=== PATIENT | male | born 1955 | race Caucasian/White ===

== ENCOUNTER → 2016-07-01 | Outpatient (CLI) | payer BC ==
--- NOTE | 2016-07-01 10:00 | XR ---
EXAMINATION TYPE: XR chest 2V DATE OF EXAM: 07/01/2016 9:55 AM COMPARISON: 06/08/2016 HISTORY: Follow-up pneumothorax TECHNIQUE: Frontal and lateral views of the chest are obtained. FINDINGS: Left-sided hydropneumothorax persists although slightly smaller in size. Scattered senescent parenchymal changes noted. Hyperinflation compatible with COPD. No evidence for infiltrate. No evidence for atelectasis. Heart size is stable. Mediastinal structures are stable and grossly unremarkable. No evidence for hilar prominence. Degenerative changes dorsal spine. IMPRESSION: 1. Left-sided hydropneumothorax persists although slightly smaller in size.
--- NOTE | 2016-07-01 12:34 | PN ---
OFFICE NOTE I had the pleasure of seeing in the outpatient office today Mr. Alec Jefferson for followup. As you may recall, he is status post talc pleurocentesis for recurrent left-sided pneumothorax with persistent basal left hydropneumothorax upon discharge. Patient clinically is stable. Denying any fever or excessive chest pain. On physical examination, there is decreased breath sounds in the left lower field. His chest x-ray today shows slightly improved left hydropneumothorax. The upper lung field seems to be adherent at least posterolaterally to the chest wall. As previously discussed, I certainly would accept the current status of things as there is not much to offer surgically for Mr. Jefferson. I sure hope that this space does not get infected, which does not seem to be the case at this point. Further potential referral for evaluation for lung transplantation might be considered. Should you have any questions or concerns, please do not hesitate to call me. It has been a pleasure to participate in the care of this nice gentleman.
== END | disposition home or self-care (01) ==
LOC: RADXRMAIN 09:42
PROVIDERS: ATTEND Surgery
DX: J94.2 Hemothorax (principal)
CPT/HCPCS: 71020

== ENCOUNTER → 2016-09-16 | Outpatient (CLI) | payer BC ==
--- NOTE | 2016-09-16 10:44 | XR ---
EXAMINATION TYPE: XR chest 2V DATE OF EXAM: 09/16/2016 10:37 AM COMPARISON: 07/01/2016 TECHNIQUE: PA and lateral views submitted. HISTORY: Cough FINDINGS: Large bulla involving the right lung apex and left apex are stable. Linear density left suprahilar re gion appears stable likely related to scar. Pleural-based thickening and tiny effusion are noted on the left. Underlying chronic obstructive pulm onary disease seen. The heart size is stable. Mild hypertrophic and degenerative change spine. IMPRESSION: 1. COPD with left lower lobe consolidation and small effusion.
== END | disposition home or self-care (01) ==
LOC: RADXRMAIN 10:19
PROVIDERS: ATTEND Internal Medicine
DX: J44.9 Chronic obstructive pulmonary disease, unspecified (principal); J90 Pleural effusion, not elsewhere classified
CPT/HCPCS: 71020

== ENCOUNTER 2016-11-01 00:14 | Inpatient (IN) | payer BC ==
[2016-11-01 00:31] LABS: ABG HCO3 27 mmol/L (21-25); ABG PCO2 88 mmHg (35-45); ABG PH 7.11 (7.35-7.45); ABG PO2 194 mmHg (83-108); ABG TCO2 30 mmol/L (19-24)
[2016-11-01 00:40] LABS: ABG Base Excess -1.5 mmol/L
[2016-11-01] MEDS ORDERED: PROPOFOL 500 MG in EMPTY BAG 1 BAG IV ONE (00:40)
[2016-11-01] MEDS ORDERED: MIDAZOLAM (PF) 1 MG/ML 5 ML VIAL IV STA (00:41)
[2016-11-01] MEDS ORDERED: SUCCINYLCHOLINE CHLORIDE VIAL 200 MG/10 ML VIAL IV STA (00:41)
[2016-11-01] MEDS ORDERED: IPRATROPIUM-ALBUTEROL 3 ML NEB INHALATION STA (00:47)
[2016-11-01] MEDS: fentaNYL (PF) 50 MCG/ML 2 ML AMP IV PRN ×4 (00:54→02:56)
[2016-11-01] MEDS ORDERED: MIDAZOLAM HCL 100 MG in SODIUM CHLORIDE 0.9% 80 ML IV ONE (00:59)
[2016-11-01] MEDS ORDERED: ROCURONIUM BROMIDE 10 MG/ML 10 ML VIAL IV STA (00:59)
[2016-11-01] MEDS ORDERED: fentaNYL (PF) 2,500 MCG in SODIUM CHLORIDE 0.9% 200 ML IV SCH ×2 (01:00→05:25)
--- NOTE | 2016-11-01 01:05 | XR ---
EXAM: XR Chest, 2 Views CLINICAL HISTORY: Reason: Pain TECHNIQUE: Frontal views of the chest. COMPARISON: CXR 10/31/16 FINDINGS: Lungs: Bilateral emphysematous changes and lung scarring. No consolidation. Pleural space: 40% pneumothorax on the right, slightly increased compared to the prior study. Small left pleural effusion/pleural thickening Heart: Unremarkable. No cardiomegaly. Mediastinum: Unremarkable. Bones/joints: Unremarkable. IMPRESSION: 40% pneumothorax on the right, slightly increased compared to the prior study. [employer] 11/01/16 01:08 Call Doctor Regarding Pneumothorax, called Dr. Galaviz on 11/01 01:07 (-04:00)
--- NOTE | 2016-11-01 01:36 | CT ---
EXAM: CT Chest Without Intravenous Contrast CLINICAL HISTORY: Reason: pneumothorax TECHNIQUE: Axial computed tomography images of the chest without intravenous contrast. CTDI is 14.9 mGy and DLP is 746.1 mGy-cm. This CT exam was performed using one or more of the following dose reduction techniques: automated exposure control, adjustment of the mA and/or kV according to patient size, and/or use of iterative reconstruction technique. Coronal and sagittal reformatted images were created and reviewed. COMPARISON: CXR performed 1 hour prior and CXR 10/31/16 FINDINGS: Lungs: Extensive bilateral centrilobular and paraseptal emphysematous changes. Peripheral scarring is seen. Pleural space: Right-sided pneumothorax approximally 50% in volume, difficult to compare to the prior study however appears slightly increased in size. Small left pleural effusion and pleural calcification. Heart: Unremarkable. No cardiomegaly. No significant pericardial effusion. Bones/joints: Multiple degenerative changes of the spine. No acute fracture. No dislocation. Soft tissues: Unremarkable. Vasculature: Unremarkable. No thoracic aortic aneurysm. Lymph nodes: Unremarkable. No enlarged lymph nodes. Kidneys and ureters: Left renal 7.8 mm cyst. Stomach and bowel: Diverticulosis. Tubes, lines and devices: ET tube 10-cm above the familia. NG tube tip within the distal esophagus. IMPRESSION: 1. ET tube 10-cm above the familia. NG tube tip within the distal esophagus. 2. Right-sided pneumothorax approximally 50% in volume, difficult to compare to the prior study however appears slightly increased in size. 3. Extensive bilateral centrilobular and paraseptal emphysematous changes. Peripheral scarring is seen. Small left pleural effusion and pleural calcification. [employer] 11/01/16 01:38 Call Doctor Regarding Above results, called Dr. Galaviz on 11/01 01:38 (-04:00)
[2016-11-01 02:22] LABS: ABG Base Excess -1.2 mmol/L; ABG HCO3 27 mmol/L (21-25); ABG PCO2 82 mmHg (35-45); ABG PH 7.14 (7.35-7.45); ABG PO2 >400 mmHg (83-108); ABG TCO2 29 mmol/L (19-24)
[2016-11-01] MEDS ORDERED: IPRATROPIUM-ALBUTEROL 3 ML NEB INHALATION PRN (02:30)
[2016-11-01] MEDS ORDERED: NALOXONE 0.4 MG/ML 1 ML VIAL IV PRN (02:30)
--- NOTE | 2016-11-01 02:40 | ED ---
SOB HPI - General Chief Complaint: Shortness of Breath Stated Complaint: SHE Time Seen by Provider: 11/01/16 00:16 Source: EMS Mode of arrival: EMS Limitations: altered mental status - History of Present Illness Initial Comments: This is a 61-year-old male with a history of severe COPD with bullous emphysema and pneumothorax. The patient was transferred from [facility] for respiratory distress and right-sided new pneumothorax. Dr. Mejia has seen the patient the past so he was sent here for continuation of care. Upon arrival the patient is unable to answer any questions and he was in severe respiratory distress. He required my immediate attention and was intubated almost immediately upon arrival. Per the family he was having worsening shortness of breath today and EMS arrived and his oxygen saturations were in the 40s. - Related Data Home Medications Medication Instructions Recorded Confirmed Albuterol Nebulized [Ventolin 2.5 mg INHALATION RT-QID 04/27/16 05/19/16 Nebulized] Budesonide/Formoterol Fumarate 2 puff INHALATION RT-BID 04/27/16 05/19/16 [Symbicort 160-4.5 Mcg Inhaler] Multivitamins, Thera [Multivitamin 1 tab PO DAILY 05/04/16 05/19/16 (formulary)] Tiotropium [place] [Spiriva 1 puff INHALATION RT-DAILY@1200 05/04/16 05/19/16 Respimat] Previous Rx's Medication Instructions Recorded Acetaminophen Tab [Tylenol] 650 mg PO Q4HR PRN #0 tab 05/01/16 Thiamine [Vitamin B-1] 100 mg PO BID@1200,1700 tab 05/01/16 ALPRAZolam [Xanax] 0.25 mg PO BID PRN #60 tab 06/08/16 Ipratropium Nebulized [Atrovent 0.5 mg INHALATION Q6HR #120 neb 06/08/16 Nebulized] Nicotine 7Mg/24Hr Patch [Habitrol] 1 patch TRANSDERM DAILY #28 patch 06/08/16 Pantoprazole [Protonix] 40 mg PO AC-BRKFST #30 tablet. 06/08/16 Sennosides-Docusate Sodium 1 each PO BID tab 06/08/16 [Senokot-S] Allergies Allergy/AdvReac Type Severity Reaction Status Date / Time No Known Allergies Allergy Verified 05/19/16 10:01 Review of Systems ROS Statement: Those systems with pertinent positive or pertinent negative responses have been documented in the HPI. ROS Other: All systems not noted in ROS Statement are negative. Past Medical History Past Medical History: COPD, Hyperlipidemia, Hypertension, Prostate Disorder, Respiratory Disorder Additional Past Medical History / Comment(s): Recent RECURRANT LT PNEUMOTHORAX with chest tube and thoravent insertion x2, bollus emphysema, respiratory failure with O2 at 3L/NC ATC, DDD, chronic back pain. History of Any Multi-Drug Resistant Organisms: None Reported Past Surgical History: Prostate Surgery Additional Past Surgical History / Comment(s): TURP.04-27-16 insertion of Thoravent left side. 05-04-16 RECURRANT LT PNUEMO /THORAVENT, bilateral ears with tubes as child. Past Anesthesia/Blood Transfusion Reactions: No Reported Reaction Past Psychological History: No Psychological Hx Reported Additional Psychological History / Comment(s): Pt resides with his spouse. He has a cane and walker he uses on occasion. He drives. He has home care thru [facility]-a nurse comes twice a week. He has home oxygen at 3L/NC. Smoking Status: Former smoker Past Alcohol Use History: Daily Additional Past Alcohol Use History / Comment(s): Patient was a smoker of up to 3 packs per day and quit 1 month ago. He denies any current medical marijuana , or street drug use. He states he drinks 4 beers daily. Past Drug Use History: None Reported - Past Family History Mother Family Medical History: Cancer Additional Family Medical History / Comment(s): Mother at age 56 from breast cancer. Father Family Medical History: CVA/TIA, Pneumonia Additional Family Medical History / Comment(s): Father from unknown type of cancer.LUNG DISEASE Brother(s) Additional Family Medical History / Comment(s): Patient has 2 brothers and one from unknown type of cancer, second brother is alive with unknown history. Sister(s) Additional Family Medical History / Comment(s): Patient has one sister that from cancer Son(s) Additional Family Medical History / Comment(s): He has 2 sons with no major medical problems. General Exam - General Exam Comments Initial Comments: Constitutional: Awake alert the patient is very agitated and appears in severe respiratory distress Head: Normocephalic atraumatic Eyes: no conjunctival injection No scleral icterus EOMI Neck: There is right-sided JVD Supple Heart: Tachycardia normal S1-S2 no murmurs Lungs: Decreased breath sounds to the right chest with left sided expiratory wheezing No rales Abdomen: Soft nondistended nontender Extremities: Non edematous DP pulses intact Radial pulses intact Neuro: A&Ox3 No focal neurologic deficits Psych: Appropriate mood and affect Limitations: altered mental status Course Vital Signs 11/01/16 11/01/16 11/01/16 00:25 00:30 00:45 Temperature 96.6 F L Pulse Rate 135 H 134 H 136 H Respiratory 30 H 30 H 26 H Rate Blood Pressure 212/93 222/126 128/63 O2 Sat by Pulse 98 100 98 Oximetry 11/01/16 11/01/16 11/01/16 01:00 01:05 01:21 Temperature Pulse Rate 132 H 135 H 134 H Respiratory 26 H Rate Blood Pressure 148/65 O2 Sat by Pulse 99 Oximetry 11/01/16 11/01/16 02:05 02:32 Temperature Pulse Rate 122 H 115 H Respiratory 26 H 26 H Rate Blood Pressure 140/71 189/99 O2 Sat by Pulse 98 98 Oximetry Procedures - Chest Tube Insertion Consent Obtained: emergent situation Time Out Performed: Yes Side of Procedure: right Indication: Pneumothorax Placed on monitor/pulse oximetry: Yes Site Prep: Chloroprep Local Anesthesia: Lidocaine 1% Amount (mLs): 5 Insertion Site: 5th Intercostal Space, Midaxillary Scalpel: #10 Open into Pleural Space Using: Fatuma Clamp Tube Size (Yakut): 28 Returns: Air Sutured in Place: Yes Type of Suture: Silk Dressing Applied: Petroleum Gauze, 4x4, Tape Attached to Suction: Yes Type of Suction: Pleuravac Repeat X-ray Results: Lung Inflated Patient Tolerated Procedure: well Medical Decision Making - Medical Decision Making This is a 61-year-old came in for respiratory distress. Had a large right- sided pneumothorax. Chest tube was placed at bedside. Was unable to advance the chest tube any further than where it was. It was running into some type of obstruction. Chest x-ray after insertion did seem to show improved aeration of the lung. I spoke with Dr. Bal, Dr. Mejia, and Dr. Terry about the case. The patient will be transferred to the ICU. - Lab Data Lab Results 11/01/16 11/01/16 Range/Units 00:24 02:15 Sample Site rbrach lbrach ABG pH 7.11 L* 7.14 L* (7.35-7.45) ABG pCO2 88 H* 82 H* (35-45) mmHg ABG pO2 194 H >400 H (83-108) mmHg ABG HCO3 27 H 27 H (21-25) mmol/L ABG Total CO2 30 H 29 H (19-24) mmol/L ABG O2 Saturation 99.0 H 100.0 H (94-97) % ABG Base Excess -1.5 -1.2 mmol/L FiO2 100 100 % Critical Care Time Critical Care Time: Yes Total Critical Care Time: 35 Critical Care Time: Medical care time spent collecting pertinent medical records from [facility] , speaking with family, examining the patient, intubation and chest tube placement, ventilator management, speaking with multiple consultants. Disposition Clinical Impression: Respiratory failure, Pneumothorax Disposition: ADMITTED IP TO THIS HOSP Condition: Critical
--- NOTE | 2016-11-01 04:38 | XR ---
EXAM: XR Chest, 2 Views CLINICAL HISTORY: Reason: chest tube TECHNIQUE: Frontal views of the chest. COMPARISON: CXR dated 10/31/16 and 11/01/[address] 11/01/16 FINDINGS: Lungs: Emphysematous changes of the lungs with scarring. Pleural space: Status post right thoracostomy tube placement with small residual right pneumothorax. Small left pleural effusion. Heart: Unremarkable. No cardiomegaly. Mediastinum: Unremarkable. Bones/joints: Unremarkable. Soft tissues: Right chest subcutaneous emphysema seen. Tubes, lines and devices: ET tube 8.4 cm above the familia. OG tube tip in the body the stomach. IMPRESSION: 1. Status post right thoracostomy tube placement with small residual right pneumothorax. 2. Right chest subcutaneous emphysema seen.
[2016-11-01 04:39] LABS: Glucose,Whole Blood 114 mg/dL (75-99)
[2016-11-01 05:24] LABS: ABG Base Excess -0.2 mmol/L; ABG HCO3 26 mmol/L (21-25); ABG PCO2 55 mmHg (35-45); ABG PH 7.29 (7.35-7.45); ABG PO2 137 mmHg (83-108); ABG TCO2 27 mmol/L (19-24)
[2016-11-01] MEDS ORDERED: MIDAZOLAM HCL 100 MG in SODIUM CHLORIDE 0.9% 80 ML IV SCH (05:25)
[2016-11-01 05:55] LABS: Appearance,Urine Cloudy (Clear); Bilirubin,Urine Negative (Negative); Glucose,Urine (UA) Trace (Negative); Ketones,Urine 1+ (Negative); Leukocyte Esterase,Urine Moderate (Negative); Mucus,Urine Rare /hpf; Nitrite,Urine Negative (Negative); Particle Count 9834; Protein,Urine 1+ (Negative); RBC,Urine >182 /hpf (0-5); Specific Gravity,Urine 1.013 (1.001-1.035); UA Billing (MACRO vs. MICRO) MICRO; Urobilinogen,Urine <2.0 mg/dL (<2.0); WBC,Urine 61 /hpf (0-5)
[2016-11-01 07:52] LABS: Basophils % (A) 0 %; CH 31.4; CHCM 31.2; Eosinophils % (A) 0 %; HCT 42.6 % (39.0-53.0); HDW 2.17; HGB 13.4 gm/dL (13.0-17.5); Luc % (Auto) 1; Lymphocytes # (A) 0.6 k/uL (1.0-4.8); Lymphocytes % (A) 6 %; MCH 31.8 pg (25.0-35.0); MCHC 31.5 g/dL (31.0-37.0); Mean Platelet Volume 7.3; Monocytes # (A) 0.8 k/uL (0-1.0); Monocytes % (A) 7 %; Neutrophils # (A) 9.4 k/uL (1.3-7.7); Neutrophils % (A) 86 %; RBC 4.22 m/uL (4.30-5.90); RDW 13.1 % (11.5-15.5); WBC 10.9 k/uL (3.8-10.6); WBC (Perox) 10.05
[2016-11-01] MEDS: SODIUM CHLORIDE 0.9% 1,000 ML IV SCH ×3 (08:01→23:41)
[2016-11-01 08:08] LABS: ALT 46 U/L (21-72); AST 51 U/L (17-59); Alkaline Phosphatase 73 U/L (38-126); Anion Gap 12 mmol/L; Blood Urea Nitrogen 20 mg/dL (9-20); Calcium 9.2 mg/dL (8.4-10.2); Carbon Dioxide 24 mmol/L (22-30); Chloride 106 mmol/L (98-107); Glucose 113 mg/dL (74-99); Magnesium 2.3 mg/dL (1.6-2.3); Non-African American GFR(MDRD) >60 (>60 ml/min/1.73 sqM); Phosphorous 3.9 mg/dL (2.5-4.5); Potassium 5.6 mmol/L (3.5-5.1); Sodium 142 mmol/L (137-145); Total Bilirubin 0.7 mg/dL (0.2-1.3); Total Protein 7.5 g/dL (6.3-8.2)
[2016-11-01 08:42] LABS: Glucose,Whole Blood 101 mg/dL (75-99)
[2016-11-01] MEDS: MIDAZOLAM HCL 100 MG in SODIUM CHLORIDE 0.9% 80 ML IV SCH ×2 (08:58→09:56)
[2016-11-01] MEDS: CHLORHEXIDINE GLUCONATE 15 ML CUP MUCOUS MEM SCH ×2 (08:58→22:06)
--- NOTE | 2016-11-01 10:37 | P.GSCN ---
History of Present Illness Consult date: 11/01/16 Reason for Consult: Right sided pneumothorax Requesting physician: Noah Galaviz History of present illness: This 61-year-old gentleman with a history of severe COPD on 3 L nasal cannula around the clock at home, and recurrent left pneumothorax, presented to [facility] in respiratory distress. He was diagnosed there with a new right-sided pneumothorax, was placed on BiPAP, and Dr. Mejia was called as he has seen this patient in the past for his left-sided pneumothorax. The patient was transferred to [facility] in significant respiratory distress and was intubated shortly thereafter. Right-sided pleural chest tube was placed in the emergency room. Dr. Mejia was consulted for management of his pneumothorax. Review of Systems 14 point review of systems was completed was negative except as noted. - Cardiovascular Reports as per HPI - Respiratory Reports as per HPI Past Medical History Past Medical History: COPD, Hyperlipidemia, Hypertension, Prostate Disorder, Respiratory Disorder Additional Past Medical History / Comment(s): Recent RECURRANT LT PNEUMOTHORAX with chest tube and thoravent insertion x2, bollus emphysema, respiratory failure with O2 at 3L/NC ATC, DDD, chronic back pain. History of Any Multi-Drug Resistant Organisms: None Reported Past Surgical History: Prostate Surgery Additional Past Surgical History / Comment(s): TURP.04-27-16 insertion of Thoravent left side. 05-04-16 RECURRANT LT PNUEMO /THORAVENT, bilateral ears with tubes as child. Past Anesthesia/Blood Transfusion Reactions: No Reported Reaction Past Psychological History: No Psychological Hx Reported Additional Psychological History / Comment(s): Pt resides with his spouse. He has a cane and walker he uses on occasion. He drives. He has home care thru [facility]-a nurse comes twice a week. He has home oxygen at 3L/NC. Smoking Status: Former smoker Past Alcohol Use History: Daily Additional Past Alcohol Use History / Comment(s): Patient was a smoker of up to 3 packs per day and quit 1 month ago. He denies any current medical marijuana , or street drug use. He states he drinks 4 beers daily. Past Drug Use History: None Reported - Past Family History Mother Family Medical History: Cancer Additional Family Medical History / Comment(s): Mother at age 56 from breast cancer. Father Family Medical History: CVA/TIA, Pneumonia Additional Family Medical History / Comment(s): Father from unknown type of cancer.LUNG DISEASE Brother(s) Additional Family Medical History / Comment(s): Patient has 2 brothers and one from unknown type of cancer, second brother is alive with unknown history. Sister(s) Additional Family Medical History / Comment(s): Patient has one sister that from cancer Son(s) Additional Family Medical History / Comment(s): He has 2 sons with no major medical problems. Medications and Allergies Home Medications Medication Instructions Recorded Confirmed Type Albuterol Nebulized [Ventolin 2.5 mg INHALATION RT-QID 04/27/16 11/01/16 History Nebulized] Budesonide/Formoterol Fumarate 2 puff INHALATION RT-BID 04/27/16 11/01/16 History [Symbicort 160-4.5 Mcg Inhaler] Multivitamins, Thera [Multivitamin 1 tab PO DAILY 05/04/16 11/01/16 History (formulary)] Tiotropium [place] [Spiriva 1 puff INHALATION RT-DAILY 05/04/16 11/01/16 History Respimat] Baclofen [Lioresal] 10 mg PO BID PRN 11/01/16 11/01/16 History HYDROcodone/APAP 5-325MG [[place] 1 tab PO Q8H PRN 11/01/16 11/01/16 History 5-325] Ipratropium [place] [Atrovent Hfa] 2 puff INHALATION RT-QID 11/01/16 11/01/16 History Sennosides-Docusate Sodium 1 tab PO BID PRN 11/01/16 11/01/16 History [Senokot-S] Allergies Allergy/AdvReac Type Severity Reaction Status Date / Time No Known Allergies Allergy Verified 11/01/16 09:37 Surgical - Exam Vital Signs Temp Pulse Resp BP Pulse Ox 96.6 F L 135 H 30 H 212/93 98 11/01/16 00:25 11/01/16 00:25 11/01/16 00:25 11/01/16 00:25 11/01/16 00:25 - General well developed, well nourished, no distress - Eyes PERRL, normal ocular movement - Neck trachea midline - Respiratory Lungs sounds diminished bilaterally. Respirations even, nonlabored on mechanical ventilation. Current settings FiO2 50%, tidal 500, respiratory rate 25, PEEP 5. Right pleural chest tube to -20 cm wall suction. No air leak present. - Cardiovascular S1, S2 present. Regular rate and rhythm, normal sinus rhythm on telemetry. No edema present. - Abdomen Abdomen: soft, non tender, bowel sounds - Genitourinary Pelaez present draining dark urine. - Rectum Deferred - Integumentary no rash, no growths - Neurologic Sedated on mechanical ventilation. Results - Labs 11/01/16 07:11 11/01/16 07:11 Abnormal Lab Results - Last 24 Hours (Table) 11/01/16 11/01/16 11/01/16 Range/Units 00:24 02:15 03:49 WBC (3.8-10.6) k/uL RBC (4.30-5.90) m/uL MCV (80.0-100.0) fL Neutrophils # (1.3-7.7) k/uL Lymphocytes # (1.0-4.8) k/uL ABG pH 7.11 L* 7.14 L* (7.35-7.45) ABG pCO2 88 H* 82 H* (35-45) mmHg ABG pO2 194 H >400 H (83-108) mmHg ABG HCO3 27 H 27 H (21-25) mmol/L ABG Total CO2 30 H 29 H (19-24) mmol/L ABG O2 Saturation 99.0 H 100.0 H (94-97) % Potassium (3.5-5.1) mmol/L Glucose (74-99) mg/dL POC Glucose (mg/dL) 114 H (75-99) mg/dL Urine Protein (Negative) Urine Glucose (UA) (Negative) Urine Ketones (Negative) Urine Blood (Negative) Ur Leukocyte Esterase (Negative) Urine RBC (0-5) /hpf Urine WBC (0-5) /hpf Hyaline Casts (0-2) /lpf Urine Mucus (None) /hpf 11/01/16 11/01/16 11/01/16 Range/Units 04:58 05:05 07:11 WBC 10.9 H (3.8-10.6) k/uL RBC 4.22 L (4.30-5.90) m/uL MCV 101.0 H (80.0-100.0) fL Neutrophils # 9.4 H (1.3-7.7) k/uL Lymphocytes # 0.6 L (1.0-4.8) k/uL ABG pH 7.29 L (7.35-7.45) ABG pCO2 55 H (35-45) mmHg ABG pO2 137 H (83-108) mmHg ABG HCO3 26 H (21-25) mmol/L ABG Total CO2 27 H (19-24) mmol/L ABG O2 Saturation 99.0 H (94-97) % Potassium (3.5-5.1) mmol/L Glucose (74-99) mg/dL POC Glucose (mg/dL) (75-99) mg/dL Urine Protein 1+ H (Negative) Urine Glucose (UA) Trace H (Negative) Urine Ketones 1+ H (Negative) Urine Blood Large H (Negative) Ur Leukocyte Esterase Moderate H (Negative) Urine RBC >182 H (0-5) /hpf Urine WBC 61 H (0-5) /hpf Hyaline Casts 17 H (0-2) /lpf Urine Mucus Rare H (None) /hpf 11/01/16 11/01/16 Range/Units 07:11 08:40 WBC (3.8-10.6) k/uL RBC (4.30-5.90) m/uL MCV (80.0-100.0) fL Neutrophils # (1.3-7.7) k/uL Lymphocytes # (1.0-4.8) k/uL ABG pH (7.35-7.45) ABG pCO2 (35-45) mmHg ABG pO2 (83-108) mmHg ABG HCO3 (21-25) mmol/L ABG Total CO2 (19-24) mmol/L ABG O2 Saturation (94-97) % Potassium 5.6 H (3.5-5.1) mmol/L Glucose 113 H (74-99) mg/dL POC Glucose (mg/dL) 101 H (75-99) mg/dL Urine Protein (Negative) Urine Glucose (UA) (Negative) Urine Ketones (Negative) Urine Blood (Negative) Ur Leukocyte Esterase (Negative) Urine RBC (0-5) /hpf Urine WBC (0-5) /hpf Hyaline Casts (0-2) /lpf Urine Mucus (None) /hpf Diabetes panel 11/01/16 Range/Units 07:11 Sodium 142 (137-145) mmol/L Potassium 5.6 H (3.5-5.1) mmol/L Chloride 106 (98-107) mmol/L Carbon Dioxide 24 (22-30) mmol/L BUN 20 (9-20) mg/dL Creatinine 0.89 (0.66-1.25) mg/dL Glucose 113 H (74-99) mg/dL Calcium 9.2 (8.4-10.2) mg/dL AST 51 (17-59) U/L ALT 46 (21-72) U/L Alkaline Phosphatase 73 (38-126) U/L Total Protein 7.5 (6.3-8.2) g/dL Albumin 4.3 (3.5-5.0) g/dL Calcium panel 11/01/16 Range/Units 07:11 Calcium 9.2 (8.4-10.2) mg/dL Phosphorus 3.9 (2.5-4.5) mg/dL Albumin 4.3 (3.5-5.0) g/dL Pituitary panel 11/01/16 Range/Units 07:11 Sodium 142 (137-145) mmol/L Potassium 5.6 H (3.5-5.1) mmol/L Chloride 106 (98-107) mmol/L Carbon Dioxide 24 (22-30) mmol/L BUN 20 (9-20) mg/dL Creatinine 0.89 (0.66-1.25) mg/dL Glucose 113 H (74-99) mg/dL Calcium 9.2 (8.4-10.2) mg/dL Adrenal panel 11/01/16 Range/Units 07:11 Sodium 142 (137-145) mmol/L Potassium 5.6 H (3.5-5.1) mmol/L Chloride 106 (98-107) mmol/L Carbon Dioxide 24 (22-30) mmol/L BUN 20 (9-20) mg/dL Creatinine 0.89 (0.66-1.25) mg/dL Glucose 113 H (74-99) mg/dL Calcium 9.2 (8.4-10.2) mg/dL Total Bilirubin 0.7 (0.2-1.3) mg/dL AST 51 (17-59) U/L ALT 46 (21-72) U/L Alkaline Phosphatase 73 (38-126) U/L Total Protein 7.5 (6.3-8.2) g/dL Albumin 4.3 (3.5-5.0) g/dL - Imaging Chest x-ray: image reviewed CT scan - chest: image reviewed Assessment and Plan (1) Pneumothorax, right Status: Acute (2) COPD (chronic obstructive pulmonary disease) Status: Acute (3) Respiratory failure Status: Acute Plan: The patient was seen and examined this morning with Dr. Mejia. All diagnostics were reviewed. We will continue to manage his right-sided pleural chest tube. Ventilator management per pulmonology. More recommendations as patient progresses. Time with Patient: Greater than 30
[2016-11-01] MEDS: PANTOPRAZOLE 40 MG/10 ML VIAL IVP SCH (10:39)
[2016-11-01] MEDS: HEPARIN SODIUM,PORCINE 5,000 UNIT/ML 1 ML VIAL SQ SCH ×2 (10:39→15:18)
[2016-11-01] MEDS ORDERED: IPRATROPIUM-ALBUTEROL 3 ML NEB INHALATION SCH (12:00)
[2016-11-01 12:04] LABS: Glucose,Whole Blood 100 mg/dL (75-99)
[2016-11-01] MEDS: THIAMINE 100 MG TAB PO SCH (12:55)
[2016-11-01] MEDS: MULTIVITAMINS, THERA LIQUID 237 ML BOTTLE PO SCH (12:55)
[2016-11-01] MEDS: PROPOFOL 500 MG in EMPTY BAG 1 BAG IV SCH ×5 (13:47→22:05)
--- NOTE | 2016-11-01 13:48 | P.HPIM ---
History of Present Illness H&P Date: 11/01/16 This is a 60-year-old male one of my patient with a previous medical history significant for extensive COPD with bullous emphysema, hyperlipidemia, hypertension. He was recently admitted from our facility and discharged on secondary to left spontaneous pneumothorax. He presented initially on 04/27/2016 with increasing shortness of breath and was found to have a left- sided pneumothorax requiring ThoraVent by cardiothoracic surgeon, and the patient was subsequently admitted to the selective care unit. . CAT scan of the chest performed at that time shows extensive COPD with bullae formation as well as upper lung fibrosis. Also was treated with COPD exacerbation requiring oral prednisone and inhalers. He was finally discharged with residual pneumothorax of 15% on chest x-ray, subsequently the patient was discharged home and then came back with significant pneumothorax with subcutaneous emphysema that time 40-50% collapse with subcutaneous emphysema. No mediastinal shift. Chest tube was placed at the emergency room by the emergency room physician and was transferred to selective care with consults to cardiothoracic surgeon, eventually patient was discharged home on THORAVENT after his chest tube was removed and he was supposed to come back to the emergency department for evaluation for possible removal of ThORAVENT, Patient underwent a bedside left-sided talc pleurodesis with Dr. Mejia, and eventually was sent home and follow up with me as an outpatient, patient has been doing fine and he has been following with thoracic surgery as an outpatient until he was cleared the patient up or he came to the emergency department at [facility] yesterday with increased shortness breath he was found to have a significant right-sided pneumothorax about 50% and had a long conversation with the ER physician and contacted Dr. Mejia at that time and the plan was to transfer the patient to the emergency department at [facility] for evaluation by thoracic surgery as there was no thrush surgery on site at [facility], patient was transferred on a BiPAP by the time he got there he became quite hypoxemic he ended up intubating the patient to the ER he had right-sided chest tube that was placed by Dr. Galaviz and subsequently he was admitted to the intensive care unit, and pulmonary consultation was obtained from . Review of Systems ROS unobtainable: due to endotracheal tube (Not able to be obtained due to mental status changes and the patient on the ventilator.), due to mental status Past Medical History Past Medical History: COPD, Hyperlipidemia, Hypertension, Prostate Disorder, Respiratory Disorder Additional Past Medical History / Comment(s): Recent RECURRANT LT PNEUMOTHORAX with chest tube and thoravent insertion x2, bollus emphysema, respiratory failure with O2 at 3L/NC ATC, DDD, chronic back pain. History of Any Multi-Drug Resistant Organisms: None Reported Past Surgical History: Prostate Surgery Additional Past Surgical History / Comment(s): TURP.04-27-16 insertion of Thoravent left side. 05-04-16 RECURRANT LT PNUEMO /THORAVENT, bilateral ears with tubes as child. Past Anesthesia/Blood Transfusion Reactions: No Reported Reaction Past Psychological History: No Psychological Hx Reported Additional Psychological History / Comment(s): Pt resides with his spouse. He has a cane and walker he uses on occasion. He drives. He has home care thru [facility]-a nurse comes twice a week. He has home oxygen at 3L/NC. Smoking Status: Former smoker Past Alcohol Use History: Daily Additional Past Alcohol Use History / Comment(s): Patient was a smoker of up to 3 packs per day and quit 1 month ago. He denies any current medical marijuana , or street drug use. He states he drinks 4 beers daily. Past Drug Use History: None Reported - Past Family History Mother Family Medical History: Cancer Additional Family Medical History / Comment(s): Mother at age 56 from breast cancer. Father Family Medical History: CVA/TIA, Pneumonia Additional Family Medical History / Comment(s): Father from unknown type of cancer.LUNG DISEASE Brother(s) Additional Family Medical History / Comment(s): Patient has 2 brothers and one from unknown type of cancer, second brother is alive with unknown history. Sister(s) Additional Family Medical History / Comment(s): Patient has one sister that from cancer Son(s) Additional Family Medical History / Comment(s): He has 2 sons with no major medical problems. Medications and Allergies Home Medications Medication Instructions Recorded Confirmed Type Albuterol Nebulized [Ventolin 2.5 mg INHALATION RT-QID 04/27/16 11/01/16 History Nebulized] Budesonide/Formoterol Fumarate 2 puff INHALATION RT-BID 04/27/16 11/01/16 History [Symbicort 160-4.5 Mcg Inhaler] Multivitamins, Thera [Multivitamin 1 tab PO DAILY 05/04/16 11/01/16 History (formulary)] Tiotropium [place] [Spiriva 1 puff INHALATION RT-DAILY 05/04/16 11/01/16 History Respimat] Baclofen [Lioresal] 10 mg PO BID PRN 11/01/16 11/01/16 History HYDROcodone/APAP 5-325MG [[place] 1 tab PO Q8H PRN 11/01/16 11/01/16 History 5-325] Ipratropium [place] [Atrovent Hfa] 2 puff INHALATION RT-QID 11/01/16 11/01/16 History Sennosides-Docusate Sodium 1 tab PO BID PRN 11/01/16 11/01/16 History [Senokot-S] Allergies Allergy/AdvReac Type Severity Reaction Status Date / Time No Known Allergies Allergy Verified 11/01/16 09:37 Physical Exam Vitals: Vital Signs Temp Pulse Pulse Resp BP BP Pulse Ox 11/01/16 09:00 103 H 25 H 144/76 100 11/01/16 08:30 100 25 H 122/68 98 11/01/16 08:00 97.7 F 98 25 H 114/71 99 11/01/16 07:30 96 25 H 112/64 99 11/01/16 07:00 92 24 106/60 97 11/01/16 06:30 94 24 85/56 97 11/01/16 06:13 96 24 102/60 97 11/01/16 05:00 96 25 H 98/58 99 11/01/16 04:00 98.5 F 106 H 25 H 140/71 98 11/01/16 03:00 111 H 26 H 101/53 98 11/01/16 02:32 115 H 26 H 152/67 98 11/01/16 02:05 122 H 26 H 140/71 98 11/01/16 01:21 134 H 11/01/16 01:05 135 H 11/01/16 01:00 132 H 26 H 148/65 99 11/01/16 00:45 136 H 26 H 128/63 98 11/01/16 00:30 134 H 30 H 222/126 100 11/01/16 00:25 96.6 F L 135 H 30 H 212/93 98 Intake and Output 10/31/16 11/01/16 11/01/16 22:59 06:59 14:59 Intake Total 231.900 315 Output Total 730 315 Balance -498.100 0 Intake: IV 230 315 Midazolam HCl 100 mg In 20 10 Sodium Chloride 0.9% 80 ml @ 0.1 MG/KG/HR 9.97 mls/hr IV .Q10H2M [facility] Rx# :[id number] Sodium Chloride 0.9% 1, 200 300 000 ml @ 100 mls/hr IV . Q10H [facility] Rx#:[id number] fentaNYL (PF) 2,500 mcg 10 5 In Sodium Chloride 0.9% 200 ml @ 20 MCG/HR 2 mls/ hr IV .Q24H [facility] Rx#: [id number] Intake, IV Titration 1.900 0 Amount Midazolam HCl 100 mg In 0.567 Sodium Chloride 0.9% 80 ml @ 0.1 MG/KG/HR 9.97 mls/hr IV .Q10H2M [facility] Rx# :[id number] Midazolam HCl 100 mg In 0 Sodium Chloride 0.9% 80 ml @ 0.1 MG/KG/HR 9.97 mls/hr IV .Q10H2M [facility] Rx# :[id number] fentaNYL (PF) 2,500 mcg 1.333 In Sodium Chloride 0.9% 200 ml @ 20 MCG/HR 2 mls/ hr IV .Q24H [facility] Rx#: [id number] Output: Chest Tube Drainage 0 0 Chest Tube Right Mid- 0 0 Axillary Chest Urine 730 315 Other: Voiding Method Indwelling Catheter Weight 99.79 kg - Constitutional General appearance: severe distress (Patient is currently intubated on the ventilator with sedation on board.) - EENT Eyes: EOMI, PERRLA, poor dentition ENT: other (ET tube in place and oral gastric tube in place.) Ears: bilateral: normal - Neck Neck: no rigidity, no stridor, no thyromegaly Carotids: bilateral: upstroke delayed - Respiratory Respiratory: bilateral: diminished, dullness, rales, rhonchi, wheezing, prolonged expiration (There is a right sided chest tube and minimal right subcutaneous emphysema) - Cardiovascular Rhythm: regular Heart sounds: normal: S1, S2 Abnormal Heart Sounds: systolic murmur, no rub, no S3 Gallop, no S4 Gallop, no click - Gastrointestinal General gastrointestinal: normal bowel sounds, soft, no splenomegaly, no tenderness, no umbilical hernia, no ventral hernia - Integumentary Integumentary: normal, normal turgor - Psychiatric Psychiatric: no A&O x's 3, no appropriate affect, no intact judgment & insight ( Patient is currently intubated and sedated on the ventilator.) Results CBC & Chem 7: 11/01/16 07:11 11/01/16 07:11 Labs: Abnormal Lab Results - Last 24 Hours (Table) 11/01/16 11/01/16 11/01/16 Range/Units 00:24 02:15 03:49 WBC (3.8-10.6) k/uL RBC (4.30-5.90) m/uL MCV (80.0-100.0) fL Neutrophils # (1.3-7.7) k/uL Lymphocytes # (1.0-4.8) k/uL ABG pH 7.11 L* 7.14 L* (7.35-7.45) ABG pCO2 88 H* 82 H* (35-45) mmHg ABG pO2 194 H >400 H (83-108) mmHg ABG HCO3 27 H 27 H (21-25) mmol/L ABG Total CO2 30 H 29 H (19-24) mmol/L ABG O2 Saturation 99.0 H 100.0 H (94-97) % Potassium (3.5-5.1) mmol/L Glucose (74-99) mg/dL POC Glucose (mg/dL) 114 H (75-99) mg/dL Urine Protein (Negative) Urine Glucose (UA) (Negative) Urine Ketones (Negative) Urine Blood (Negative) Ur Leukocyte Esterase (Negative) Urine RBC (0-5) /hpf Urine WBC (0-5) /hpf Hyaline Casts (0-2) /lpf Urine Mucus (None) /hpf 11/01/16 11/01/16 11/01/16 Range/Units 04:58 05:05 07:11 WBC 10.9 H (3.8-10.6) k/uL RBC 4.22 L (4.30-5.90) m/uL MCV 101.0 H (80.0-100.0) fL Neutrophils # 9.4 H (1.3-7.7) k/uL Lymphocytes # 0.6 L (1.0-4.8) k/uL ABG pH 7.29 L (7.35-7.45) ABG pCO2 55 H (35-45) mmHg ABG pO2 137 H (83-108) mmHg ABG HCO3 26 H (21-25) mmol/L ABG Total CO2 27 H (19-24) mmol/L ABG O2 Saturation 99.0 H (94-97) % Potassium (3.5-5.1) mmol/L Glucose (74-99) mg/dL POC Glucose (mg/dL) (75-99) mg/dL Urine Protein 1+ H (Negative) Urine Glucose (UA) Trace H (Negative) Urine Ketones 1+ H (Negative) Urine Blood Large H (Negative) Ur Leukocyte Esterase Moderate H (Negative) Urine RBC >182 H (0-5) /hpf Urine WBC 61 H (0-5) /hpf Hyaline Casts 17 H (0-2) /lpf Urine Mucus Rare H (None) /hpf 11/01/16 11/01/16 Range/Units 07:11 08:40 WBC (3.8-10.6) k/uL RBC (4.30-5.90) m/uL MCV (80.0-100.0) fL Neutrophils # (1.3-7.7) k/uL Lymphocytes # (1.0-4.8) k/uL ABG pH (7.35-7.45) ABG pCO2 (35-45) mmHg ABG pO2 (83-108) mmHg ABG HCO3 (21-25) mmol/L ABG Total CO2 (19-24) mmol/L ABG O2 Saturation (94-97) % Potassium 5.6 H (3.5-5.1) mmol/L Glucose 113 H (74-99) mg/dL POC Glucose (mg/dL) 101 H (75-99) mg/dL Urine Protein (Negative) Urine Glucose (UA) (Negative) Urine Ketones (Negative) Urine Blood (Negative) Ur Leukocyte Esterase (Negative) Urine RBC (0-5) /hpf Urine WBC (0-5) /hpf Hyaline Casts (0-2) /lpf Urine Mucus (None) /hpf Thrombosis Risk Factor Assmnt - DVT/VTE Prophylaxis DVT/VTE Prophylaxis: Pharmacologic Prophylaxis ordered, Mechanical Prophylaxis ordered Assessment and Plan Plan: Assessment and plan: 1. Right sided spontaneous pneumothorax. Post chest tube placement in the ER, patient is currently admitted on the ventilator, start the patient on the nebulizer, Depo-Medrol 60 mg IV push every 6 hours [id number], continue Pulmicort 0.5 mg position twice every day, pulmonary consultation, thoracic surgery consultation monitor the patient very closely. 2. COPD exacerbation with chronic respiratory failure and home O2 dependence. We will continue with nebulized treatment, Solu-Medrol, oxygen support, monitor the blood gases. 3. Leukocytosis. Likely reactive monitor CBC the next 24 hours. 4. Degenerative disc disease. Stable at this time. 5. Severe emphysema with bulla . With recurrent pneumothorax. 6. Tobacco use and dependence. I believe the patient had quit smoking. 7. History of alcohol abuse. I believe the patient had cut back. 8. DVT prophylaxis. Heparin 5000 units subcutaneously every 12 hours. 9. GI prophylaxis. Start the patient on Protonix 40 mg orally once every day. 10. Admit to inpatient. Estimate a length of stay 2 midnights. 11. Patient is a full code.
--- NOTE | 2016-11-01 14:57 | P.CNPUL ---
History of Present Illness Consult date: 11/01/16 Reason for consult: hypoxemia, pneumothorax Chief complaint: Chest pain, SOB History of present illness: 61 year old male presented to the ED c/o chest pain and shortness of breath. The patient was apparently working in the yard with his and he had chest pain later that evening. He has a history of recurrent spontaneous pneumothoraces on the left and has had talc pleurodesis. The patient was intubated in the ER and chest tube placed. He has been hemodynamically stable over night. He is having adequate urine output. He is tolerating the ventilator well. The patient was started on sentinel and Versed for sedation. This is discussed and will be changed to propofol. The patient's chest x-ray is reviewed and shows near complete resolution of the right pneumothorax. Cardiothoracic surgery has been consulted. The patient's and sons are at bedside and are updated to the plan of care. Review of Systems All systems: negative Past Medical History Past Medical History: COPD, Hyperlipidemia, Hypertension, Prostate Disorder, Respiratory Disorder Additional Past Medical History / Comment(s): Recent RECURRANT LT PNEUMOTHORAX with chest tube and thoravent insertion x2, bollus emphysema, respiratory failure with O2 at 3L/NC ATC, DDD, chronic back pain. History of Any Multi-Drug Resistant Organisms: None Reported Past Surgical History: Prostate Surgery Additional Past Surgical History / Comment(s): TURP.04-27-16 insertion of Thoravent left side. 05-04-16 RECURRANT LT PNUEMO /THORAVENT, bilateral ears with tubes as child. Past Anesthesia/Blood Transfusion Reactions: No Reported Reaction Past Psychological History: No Psychological Hx Reported Additional Psychological History / Comment(s): Pt resides with his spouse. He has a cane and walker he uses on occasion. He drives. He has home care thru [facility]-a nurse comes twice a week. He has home oxygen at 3L/NC. Smoking Status: Former smoker Past Alcohol Use History: Daily Additional Past Alcohol Use History / Comment(s): Patient was a smoker of up to 3 packs per day and quit 1 month ago. He denies any current medical marijuana , or street drug use. He states he drinks 4 beers daily. Past Drug Use History: None Reported - Past Family History Mother Family Medical History: Cancer Additional Family Medical History / Comment(s): Mother at age 56 from breast cancer. Father Family Medical History: CVA/TIA, Pneumonia Additional Family Medical History / Comment(s): Father from unknown type of cancer.LUNG DISEASE Brother(s) Additional Family Medical History / Comment(s): Patient has 2 brothers and one from unknown type of cancer, second brother is alive with unknown history. Sister(s) Family Medical History: Cancer Additional Family Medical History / Comment(s): Patient has one sister that from cancer Son(s) Additional Family Medical History / Comment(s): He has 2 sons with no major medical problems. Medications and Allergies Home Medications Medication Instructions Recorded Confirmed Type Albuterol Nebulized [Ventolin 2.5 mg INHALATION RT-QID 04/27/16 11/01/16 History Nebulized] Budesonide/Formoterol Fumarate 2 puff INHALATION RT-BID 04/27/16 11/01/16 History [Symbicort 160-4.5 Mcg Inhaler] Multivitamins, Thera [Multivitamin 1 tab PO DAILY 05/04/16 11/01/16 History (formulary)] Tiotropium [place] [Spiriva 1 puff INHALATION RT-DAILY 05/04/16 11/01/16 History Respimat] Baclofen [Lioresal] 10 mg PO BID PRN 11/01/16 11/01/16 History HYDROcodone/APAP 5-325MG [[place] 1 tab PO Q8H PRN 11/01/16 11/01/16 History 5-325] Ipratropium [place] [Atrovent Hfa] 2 puff INHALATION RT-QID 11/01/16 11/01/16 History Sennosides-Docusate Sodium 1 tab PO BID PRN 11/01/16 11/01/16 History [Senokot-S] Allergies Allergy/AdvReac Type Severity Reaction Status Date / Time No Known Allergies Allergy Verified 11/01/16 09:37 Physical Exam Osteopathic Statement: *. No significant issues noted on an osteopathic structural exam other than those noted in the History and Physical/Consult. Vitals: Vital Signs Temp Pulse Pulse Resp BP BP Pulse Ox 11/01/16 14:00 103 H 25 H 140/63 99 11/01/16 13:30 100 25 H 105/64 97 11/01/16 13:00 100 25 H 121/63 98 11/01/16 12:30 101 H 25 H 104/67 97 11/01/16 12:00 98.0 F 103 H 25 H 116/60 97 11/01/16 11:31 122 H 11/01/16 11:30 106 H 25 H 113/72 100 11/01/16 11:16 125 H 11/01/16 11:00 101 H 25 H 99/62 97 11/01/16 10:30 101 H 25 H 117/70 98 11/01/16 10:00 102 H 25 H 114/58 99 11/01/16 09:30 103 H 25 H 115/68 99 11/01/16 09:00 103 H 25 H 144/76 100 11/01/16 08:30 100 25 H 122/68 98 11/01/16 08:00 97.7 F 98 25 H 114/71 99 11/01/16 07:30 96 25 H 112/64 99 11/01/16 07:00 92 24 106/60 97 11/01/16 06:30 94 24 85/56 97 11/01/16 06:13 96 24 102/60 97 11/01/16 05:00 96 25 H 98/58 99 11/01/16 04:00 98.5 F 106 H 25 H 140/71 98 11/01/16 03:00 111 H 26 H 101/53 98 11/01/16 02:32 115 H 26 H 152/67 98 11/01/16 02:05 122 H 26 H 140/71 98 11/01/16 01:21 134 H 11/01/16 01:05 135 H 11/01/16 01:00 132 H 26 H 148/65 99 11/01/16 00:45 136 H 26 H 128/63 98 11/01/16 00:30 134 H 30 H 222/126 100 11/01/16 00:25 96.6 F L 135 H 30 H 212/93 98 Intake and Output 10/31/16 11/01/16 11/01/16 22:59 06:59 14:59 Intake Total 231.900 871.930 Output Total 730 575 Balance -498.100 296.930 Intake: IV 230 815 Midazolam HCl 100 mg In 20 10 Sodium Chloride 0.9% 80 ml @ 0.1 MG/KG/HR 9.97 mls/hr IV .Q10H2M [facility] Rx# :[id number] Sodium Chloride 0.9% 1, 200 800 000 ml @ 100 mls/hr IV . Q10H [facility] Rx#:[id number] fentaNYL (PF) 2,500 mcg 10 5 In Sodium Chloride 0.9% 200 ml @ 20 MCG/HR 2 mls/ hr IV .Q24H [facility] Rx#: [id number] Intake, IV Titration 1.900 56.930 Amount Midazolam HCl 100 mg In 0.567 Sodium Chloride 0.9% 80 ml @ 0.1 MG/KG/HR 9.97 mls/hr IV .Q10H2M [facility] Rx# :[id number] Midazolam HCl 100 mg In 0 Sodium Chloride 0.9% 80 ml @ 0.1 MG/KG/HR 9.97 mls/hr IV .Q10H2M [facility] Rx# :[id number] Midazolam HCl 100 mg In 37.333 Sodium Chloride 0.9% 80 ml @ 10 MG/HR 10 mls/hr IV .Q10H [facility] Rx#: [id number] Propofol 500 mg In Empty 0.847 Bag 1 bag @ Titrate IV . Q0M [facility] Rx#:[id number] fentaNYL (PF) 2,500 mcg 1.333 In Sodium Chloride 0.9% 200 ml @ 20 MCG/HR 2 mls/ hr IV .Q24H [facility] Rx#: [id number] fentaNYL (PF) 2,500 mcg 18.75 In Sodium Chloride 0.9% 200 ml @ 50 MCG/HR 5 mls/ hr IV .Q24H [facility] Rx#: [id number] Output: Chest Tube Drainage 0 0 Chest Tube Right Mid- 0 0 Axillary Chest Urine 730 575 Other: Voiding Method Indwelling Catheter Indwelling Catheter Weight 99.79 kg 99.79 kg Patient Weight 11/02/16 06:59 Weight 99.79 kg Gen.: Patient is sedated on ventilator Cardiovascular: Regular rate and rhythm, S1/S2 Lungs: Diminished breath sounds bilaterally with scattered wheezing, right chest tube in place Abdomen: Soft nontender nondistended positive bowel sounds Extremities: No edema Results - Laboratory Findings CBC and BMP: 11/01/16 07:11 11/01/16 07:11 ABG ABG pH 7.29 (7.35-7.45) L 11/01/16 05:05 ABG pCO2 55 mmHg (35-45) H 11/01/16 05:05 ABG pO2 137 mmHg (83-108) H 11/01/16 05:05 ABG O2 Saturation 99.0 % (94-97) H 11/01/16 05:05 Abnormal lab findings: Abnormal Labs 11/01/16 11/01/16 11/01/16 00:24 02:15 03:49 WBC RBC MCV Neutrophils # Lymphocytes # ABG pH 7.11 L* 7.14 L* ABG pCO2 88 H* 82 H* ABG pO2 194 H >400 H ABG HCO3 27 H 27 H ABG Total CO2 30 H 29 H ABG O2 Saturation 99.0 H 100.0 H Potassium Glucose POC Glucose (mg/dL) 114 H Urine Protein Urine Glucose (UA) Urine Ketones Urine Blood Ur Leukocyte Esterase Urine RBC Urine WBC Hyaline Casts Urine Mucus 11/01/16 11/01/16 11/01/16 04:58 05:05 07:11 WBC 10.9 H RBC 4.22 L MCV 101.0 H Neutrophils # 9.4 H Lymphocytes # 0.6 L ABG pH 7.29 L ABG pCO2 55 H ABG pO2 137 H ABG HCO3 26 H ABG Total CO2 27 H ABG O2 Saturation 99.0 H Potassium Glucose POC Glucose (mg/dL) Urine Protein 1+ H Urine Glucose (UA) Trace H Urine Ketones 1+ H Urine Blood Large H Ur Leukocyte Esterase Moderate H Urine RBC >182 H Urine WBC 61 H Hyaline Casts 17 H Urine Mucus Rare H 11/01/16 11/01/16 11/01/16 07:11 08:40 12:02 WBC RBC MCV Neutrophils # Lymphocytes # ABG pH ABG pCO2 ABG pO2 ABG HCO3 ABG Total CO2 ABG O2 Saturation Potassium 5.6 H Glucose 113 H POC Glucose (mg/dL) 101 H 100 H Urine Protein Urine Glucose (UA) Urine Ketones Urine Blood Ur Leukocyte Esterase Urine RBC Urine WBC Hyaline Casts Urine Mucus - Diagnostic Findings Chest x-ray: report reviewed, image reviewed Assessment and Plan Plan: Acute on chronic hypoxic and hypercapnic respiratory failure Right spontaneous pneumothorax Bullous emphysema History of tobacco abuse Alcohol abuse Hematuria Acute exacerbation of COPD Continue full ventilator support Serial chest x-rays Chest tube per thoracic surgery Antibiotics: Levaquin Bronchodilators and Pulmicort DC Versed and fentanyl Initiate propofol and morphine pushes as needed GI and DVT prophylaxis Family is at bedside and is updated to the plan of care. Thank you for this consultation we'll continue to follow along
[2016-11-01] MEDS: LEVOFLOXACIN 500MG-D5W PMX 500 MG in DEXTROSE/WATER 1 100ML.BAG IVPB SCH (15:18)
[2016-11-01] MEDS: IPRATROPIUM-ALBUTEROL 3 ML NEB INHALATION SCH ×3 (15:26→23:36)
[2016-11-01 18:20] LABS: Glucose,Whole Blood 94 mg/dL (75-99)
[2016-11-01] MEDS: BUDESONIDE 0.5 MG/2 ML NEBU INHALATION SCH (20:01)
[2016-11-01 20:02] LABS: Glucose,Whole Blood 88 mg/dL (75-99)
[2016-11-01] MEDS: LORazepam 2 MG/ML SYRINGE IV PRN (20:27)
[2016-11-01] MEDS: MORPHINE SULFATE 2 MG/ML SYRINGE IVP PRN (22:05)
[2016-11-01 23:56] LABS: Glucose,Whole Blood 102 mg/dL (75-99)
[2016-11-02] MEDS: PROPOFOL 500 MG in EMPTY BAG 1 BAG IV SCH ×12 (01:00→23:39)
[2016-11-02] MEDS: HEPARIN SODIUM,PORCINE 5,000 UNIT/ML 1 ML VIAL SQ SCH ×3 (01:22→16:21)
[2016-11-02] MEDS: IPRATROPIUM-ALBUTEROL 3 ML NEB INHALATION SCH ×6 (02:15→23:32)
[2016-11-02 04:01] LABS: Basophils % (A) 0 %; CH 31.2; CHCM 30.6; Eosinophils # (A) 0.1 k/uL (0-0.7); Eosinophils % (A) 1 %; HCT 39.7 % (39.0-53.0); HGB 12.3 gm/dL (13.0-17.5); Hypochromasia Slight; Luc # (Auto) 0.13; Luc % (Auto) 2; Lymphocytes # (A) 1.4 k/uL (1.0-4.8); Lymphocytes % (A) 15 %; MCH 31.5 pg (25.0-35.0); MCHC 30.8 g/dL (31.0-37.0); MCV 102.2 fL (80.0-100.0); Macrocytosis Slight; Mean Platelet Volume 6.8; Monocytes # (A) 0.6 k/uL (0-1.0); Monocytes % (A) 7 %; Neutrophils # (A) 6.9 k/uL (1.3-7.7); Neutrophils % (A) 75 %; RBC 3.89 m/uL (4.30-5.90); RDW 13.6 % (11.5-15.5); WBC 9.2 k/uL (3.8-10.6)
[2016-11-02 04:05] LABS: INR 1.1 (<1.1); Prothrombin Time 10.7 sec (9.0-12.0)
[2016-11-02 04:06] LABS: Partial Thromboplastin Time 26.2 sec (22.0-30.0)
[2016-11-02 04:11] LABS: Anion Gap 8 mmol/L; Blood Urea Nitrogen 21 mg/dL (9-20); Calcium 9.2 mg/dL (8.4-10.2); Carbon Dioxide 26 mmol/L (22-30); Chloride 106 mmol/L (98-107); Glucose 122 mg/dL (74-99); Magnesium 2.4 mg/dL (1.6-2.3); Non-African American GFR(MDRD) >60 (>60 ml/min/1.73 sqM); Phosphorous 2.7 mg/dL (2.5-4.5); Potassium 4.5 mmol/L (3.5-5.1); Sodium 140 mmol/L (137-145)
[2016-11-02] MEDS: MORPHINE SULFATE 2 MG/ML SYRINGE IVP PRN ×2 (04:20→21:30)
[2016-11-02] MEDS: LORazepam 2 MG/ML SYRINGE IV PRN ×6 (04:31→23:39)
[2016-11-02 05:49] LABS: ABG PCO2 65 mmHg (35-45); ABG PH 7.28 (7.35-7.45); ABG PO2 78 mmHg (83-108)
[2016-11-02 05:50] LABS: ABG Base Excess 3.2 mmol/L; ABG HCO3 30 mmol/L (21-25); ABG TCO2 31 mmol/L (19-24)
[2016-11-02 06:08] LABS: Glucose,Whole Blood 118 mg/dL (75-99)
[2016-11-02] MEDS: BUDESONIDE 0.5 MG/2 ML NEBU INHALATION SCH ×2 (07:43→20:18)
--- NOTE | 2016-11-02 08:17 | XR ---
EXAMINATION TYPE: XR chest 1V DATE OF EXAM: 11/02/2016 6:20 AM CLINICAL HISTORY: Difficulty breathing and chest tube progress study. TECHNIQUE: 3 AP portable semiupright views of the chest are obtained. COMPARISON: Chest x-ray and chest CT from one day earlier. FINDINGS: An endotracheal tube and nasogastric tube are stable in appearance. There is redemonstrati on of right-sided chest tube with its slightly retracted from prior exam. There is small right supero lateral pneumothorax identified on current study near chest tube site. Right-sided subcutaneous emphy sema is redemonstrated and more prominent. There is background of advanced emphysematous change. Ther e is bilateral upper lung scarring. There is additional left basilar scarring and/or atelectasis. No mediastinal shift is seen. Cardiac silhouette size is stable and within normal limits. Osseous struct ures are intact. IMPRESSION: Chest tube slightly retracted with increasing subcutaneous emphysema. Persistent small right superior lateral pneumothorax stable or minimally more prominent. Consider repositioning or advancing. Results communicated to patient's ICU nurse via telephone at time of dictation. A Document Only message has been documented for Francisco Bal MD in the [facility] system on 11/02/2016 8:14 AM, Message ID [id number].
[2016-11-02] MEDS: PANTOPRAZOLE 40 MG/10 ML VIAL IVP SCH (08:41)
[2016-11-02] MEDS: CHLORHEXIDINE GLUCONATE 15 ML CUP MUCOUS MEM SCH ×2 (08:42→20:32)
[2016-11-02] MEDS: LEVOFLOXACIN 500MG-D5W PMX 500 MG in DEXTROSE/WATER 1 100ML.BAG IVPB SCH (08:52)
[2016-11-02] MEDS: SODIUM CHLORIDE 0.9% 1,000 ML IV SCH ×2 (08:52→19:00)
--- NOTE | 2016-11-02 11:25 | CONS ---
Mr. Alec Jefferson is a gentleman who had bilateral pneumothorax. Cardiology was consulted on account of abnormal ECG with ST depression. When he was in chest pain and ST depression and shortness of breath, his 12-lead ECG showed sinus tachycardia with ST depressions which has now normalized now that he is intubated and sedated. He is currently on the ventilator. He has past history of hypertension, dyslipidemia, COPD and recurrent pneumothorax and bullous emphysema. His labs are reviewed and his cardiac enzymes are 0.2 and 0.19. Electrolytes are normal. Hemoglobin is normal. On examination, his blood pressure is 114/67 mmHg, respiratory rate is 25. His heart rate is about 160 beats a minute. Breath sounds are reduced bilaterally. There is significant reduction in breath sounds bilaterally. Heart sounds are distant. ABDOMEN: Soft, nontender. EXTREMITIES: Warm. IMPRESSION: 1. Bilateral pneumothorax with hypoxemia. 2. Twelve-lead ECG shows sinus tachycardia with ST depressions which have now resolved after intubation and mechanical ventilation. 3. Borderline troponins are noted and likely the setting of hypoxia most likely represents predominantly a demand ischemia with a troponin leak. From a cardiac standpoint, other than 2-D echo, I have no other recommendations at this point. His pulmonary status will drive his long-term prognosis.
[2016-11-02 12:22] LABS: Glucose,Whole Blood 140 mg/dL (75-99)
[2016-11-02] MEDS: MULTIVITAMINS, THERA LIQUID 237 ML BOTTLE PO SCH (12:23)
[2016-11-02] MEDS: THIAMINE 100 MG TAB PO SCH (12:24)
--- NOTE | 2016-11-02 13:14 | P.PN ---
Subjective Principal diagnosis: Right pneumothorax Patient seen and examined in the ICU with nursing staff at bedside. The patient has been somewhat agitated and was started on as needed morphine and Ativan. His urine output has been adequate. His ABG from this morning is reviewed. His troponins have been elevated and cardiology is consulted. The patient has very diminished breath sounds on the right. Will repeat chest x- ray now. Objective - Vital Signs Vital signs: Vital Signs Temp 99.4 F 11/02/16 12:00 Pulse 117 H 11/02/16 13:00 Resp 25 H 11/02/16 13:00 BP 124/72 11/02/16 13:00 Pulse Ox 94 L 11/02/16 13:00 Intake & Output 11/01/16 11/02/16 11/02/16 18:59 06:59 18:59 Intake Total 4492.051 2586.935 1319.291 Output Total 830 1116 261 Balance 462.602 6070.935 1058.291 Weight 99.79 kg 105.4 kg 105.4 kg Intake: IV 1215 1200 700 Midazolam HCl 100 mg In 10 Sodium Chloride 0.9% 80 ml @ 0.1 MG/KG/HR 9.97 mls/hr IV .Q10H2M [facility] Rx# :[id number] Sodium Chloride 0.9% 1, 1200 1200 700 000 ml @ 100 mls/hr IV . Q10H [facility] Rx#:[id number] fentaNYL (PF) 2,500 mcg 5 In Sodium Chloride 0.9% 200 ml @ 20 MCG/HR 2 mls/ hr IV .Q24H [facility] Rx#: [id number] Intake, IV Titration 124.971 267.935 89.291 Amount Midazolam HCl 100 mg In 0 Sodium Chloride 0.9% 80 ml @ 0.1 MG/KG/HR 9.97 mls/hr IV .Q10H2M [facility] Rx# :[id number] Midazolam HCl 100 mg In 37.333 Sodium Chloride 0.9% 80 ml @ 10 MG/HR 10 mls/hr IV .Q10H [facility] Rx#: [id number] Propofol 500 mg In Empty 68.888 267.935 89.291 Bag 1 bag @ Titrate IV . Q0M [facility] Rx#:[id number] fentaNYL (PF) 2,500 mcg 18.75 In Sodium Chloride 0.9% 200 ml @ 50 MCG/HR 5 mls/ hr IV .Q24H [facility] Rx#: [id number] Tube Feeding 60 380 250 Other 280 280 Output: Chest Tube Drainage 0 36 4 Chest Tube Right Mid- 0 36 4 Axillary Chest Urine 830 1080 257 Other: Voiding Method Indwelling Catheter Indwelling Catheter - Exam Gen.: Patient is sedated on ventilator Cardiovascular: Regular rate and rhythm, S1/S2 Lungs: Diminished breath sounds bilaterally with scattered wheezing, right chest tube in place Abdomen: Soft nontender nondistended positive bowel sounds Extremities: No edema - Labs CBC & Chem 7: 11/02/16 03:38 11/02/16 03:38 Labs: Abnormal Lab Results - Last 24 Hours (Table) 11/01/16 11/01/16 11/01/16 Range/Units 15:53 22:03 23:55 RBC (4.30-5.90) m/uL Hgb (13.0-17.5) gm/dL MCV (80.0-100.0) fL MCHC (31.0-37.0) g/dL ABG pH (7.35-7.45) ABG pCO2 (35-45) mmHg ABG pO2 (83-108) mmHg ABG HCO3 (21-25) mmol/L ABG Total CO2 (19-24) mmol/L ABG O2 Saturation (94-97) % BUN (9-20) mg/dL Glucose (74-99) mg/dL POC Glucose (mg/dL) 102 H (75-99) mg/dL Magnesium (1.6-2.3) mg/dL Troponin I 0.314 H* 0.237 H* (0.000-0.034) ng/mL 11/02/16 11/02/16 11/02/16 Range/Units 03:38 03:38 03:38 RBC 3.89 L (4.30-5.90) m/uL Hgb 12.3 L (13.0-17.5) gm/dL MCV 102.2 H (80.0-100.0) fL MCHC 30.8 L (31.0-37.0) g/dL ABG pH (7.35-7.45) ABG pCO2 (35-45) mmHg ABG pO2 (83-108) mmHg ABG HCO3 (21-25) mmol/L ABG Total CO2 (19-24) mmol/L ABG O2 Saturation (94-97) % BUN 21 H (9-20) mg/dL Glucose 122 H (74-99) mg/dL POC Glucose (mg/dL) (75-99) mg/dL Magnesium 2.4 H (1.6-2.3) mg/dL Troponin I 0.198 H* (0.000-0.034) ng/mL 11/02/16 11/02/16 11/02/16 Range/Units 05:16 06:07 12:21 RBC (4.30-5.90) m/uL Hgb (13.0-17.5) gm/dL MCV (80.0-100.0) fL MCHC (31.0-37.0) g/dL ABG pH 7.28 L (7.35-7.45) ABG pCO2 65 H (35-45) mmHg ABG pO2 78 L (83-108) mmHg ABG HCO3 30 H (21-25) mmol/L ABG Total CO2 31 H (19-24) mmol/L ABG O2 Saturation 93.0 L (94-97) % BUN (9-20) mg/dL Glucose (74-99) mg/dL POC Glucose (mg/dL) 118 H 140 H (75-99) mg/dL Magnesium (1.6-2.3) mg/dL Troponin I (0.000-0.034) ng/mL Microbiology - Last 24 Hours (Table) 11/02/16 04:00 Sputum Culture - Preliminary Sputum 11/01/16 04:58 Urine Culture - Final Urine,Voided 11/01/16 04:58 Gram Stain - Preliminary Penis Wound Culture - Preliminary Assessment and Plan Plan: Acute on chronic hypoxic and hypercapnic respiratory failure Right spontaneous pneumothorax, CT in place Bullous emphysema History of tobacco abuse Alcohol abuse Hematuria Acute exacerbation of COPD Continue full ventilator support, increase Tv to 550 AM ABG Serial chest x-rays - repeat now Chest tube per thoracic surgery Antibiotics: Levaquin Sputum, blood, urine cultures Bronchodilators and Pulmicort Initiate propofol and morphine pushes as needed GI and DVT prophylaxis Initiate tube feeding, consult dietitian Tylenol PRN fever Possible SBT in AM pending ABG and patient's progress
--- NOTE | 2016-11-02 14:06 | XR ---
EXAMINATION TYPE: XR chest 1V portable DATE OF EXAM: 11/02/2016 1:55 PM CLINICAL HISTORY: Difficulty breathing, assess lung sounds TECHNIQUE: 3 AP portable semiupright views of the chest are obtained. COMPARISON: Chest x-ray from earlier today. FINDINGS: There is persistent stable right-sided chest tube. An endotracheal tube and orogastric tub e are stable in appearance. There is interval progression in size of right-sided pneumothorax with la rge pneumothorax laterally and inferiorly seen. Estimated size is 60-65%. There is suspected some tho racic wall fat infolding into the pleural space inferiorly on CT correlating with right medial basila r opacity below collapse lung. Adjacent subcutaneous emphysema is again seen. There is background chronic emphysematous change. There is bilateral upper lung scarring and left bas ilar scarring. There are small left pleural effusion seen on current study. There is complete right l ower lung atelectatic change or opacity now identified. No distinct new mediastinal shift is seen. Ca rdiac silhouette size is stable and within normal limits. Atherosclerotic thoracic aorta is seen. Oss eous structures are intact. IMPRESSION: New large right-sided pneumothorax now present even more prominent than seen before chest tube placement on CT one day earlier estimated 60-65%. Chest tube position is felt stable. New compl ete right lower lung atelectatic change is felt present. No distinct new mediastinal shift. Results communicated to patient's ICU nurse via telephone at time of dictation. A Document Only message has been documented for Francisco Bal MD in the [facility] system on 11/02/2016 2:04 PM, Message ID [id number].
--- NOTE | 2016-11-02 15:19 | P.PN ---
Subjective This is a 60-year-old male one of my patient with a previous medical history significant for extensive COPD with bullous emphysema, hyperlipidemia, hypertension. He was recently admitted from our facility and discharged on secondary to left spontaneous pneumothorax. He presented initially on 04/27/2016 with increasing shortness of breath and was found to have a left- sided pneumothorax requiring ThoraVent by cardiothoracic surgeon, and the patient was subsequently admitted to the selective care unit. . CAT scan of the chest performed at that time shows extensive COPD with bullae formation as well as upper lung fibrosis. Also was treated with COPD exacerbation requiring oral prednisone and inhalers. He was finally discharged with residual pneumothorax of 15% on chest x-ray, subsequently the patient was discharged home and then came back with significant pneumothorax with subcutaneous emphysema that time 40-50% collapse with subcutaneous emphysema. No mediastinal shift. Chest tube was placed at the emergency room by the emergency room physician and was transferred to selective care with consults to cardiothoracic surgeon, eventually patient was discharged home on THORAVENT after his chest tube was removed and he was supposed to come back to the emergency department for evaluation for possible removal of ThORAVENT, Patient underwent a bedside left-sided talc pleurodesis with Dr. Mejia, and eventually was sent home and follow up with me as an outpatient, patient has been doing fine and he has been following with thoracic surgery as an outpatient until he was cleared the patient up or he came to the emergency department at [facility] yesterday with increased shortness breath he was found to have a significant right-sided pneumothorax about 50% and had a long conversation with the ER physician and contacted Dr. Mejia at that time and the plan was to transfer the patient to the emergency department at [facility] for evaluation by thoracic surgery as there was no thrush surgery on site at [facility], patient was transferred on a BiPAP by the time he got there he became quite hypoxemic he ended up intubating the patient to the ER he had right-sided chest tube that was placed by Dr. Galaviz and subsequently he was admitted to the intensive care unit, and pulmonary consultation was obtained from Dr. Dueñas. 11/02: Patient continues to be intubated on mechanical ventilation. Chest tube remains in place for right spontaneous pneumothorax. He is followed by cardiothoracic surgeon as well as Dr. Dueñas from pulmonary medicine. Patient is also followed by cardiology and noted to have borderline troponins likely due to hypoxia and troponin leak. Echocardiogram has been ordered and report is pending. Tube feedings have been started. Urine output has been 30-35 mL per hour. No diarrhea. Objective - Vital Signs Vital signs: Vital Signs Temp 99.2 F 11/02/16 08:00 Pulse 115 H 11/02/16 10:00 Resp 25 H 11/02/16 10:00 BP 104/68 11/02/16 10:00 Pulse Ox 97 11/02/16 10:00 Intake & Output 11/01/16 11/02/16 11/02/16 18:59 06:59 18:59 Intake Total 0646.042 5147.935 569.408 Output Total 830 1116 180 Balance 571.482 8437.935 389.408 Weight 99.79 kg 105.4 kg Intake: IV 1215 1200 400 Midazolam HCl 100 mg In 10 Sodium Chloride 0.9% 80 ml @ 0.1 MG/KG/HR 9.97 mls/hr IV .Q10H2M [facility] Rx# :[id number] Sodium Chloride 0.9% 1, 1200 1200 400 000 ml @ 100 mls/hr IV . Q10H [facility] Rx#:[id number] fentaNYL (PF) 2,500 mcg 5 In Sodium Chloride 0.9% 200 ml @ 20 MCG/HR 2 mls/ hr IV .Q24H [facility] Rx#: [id number] Intake, IV Titration 124.971 267.935 39.408 Amount Midazolam HCl 100 mg In 0 Sodium Chloride 0.9% 80 ml @ 0.1 MG/KG/HR 9.97 mls/hr IV .Q10H2M [facility] Rx# :[id number] Midazolam HCl 100 mg In 37.333 Sodium Chloride 0.9% 80 ml @ 10 MG/HR 10 mls/hr IV .Q10H [facility] Rx#: [id number] Propofol 500 mg In Empty 68.888 267.935 39.408 Bag 1 bag @ Titrate IV . Q0M [facility] Rx#:[id number] fentaNYL (PF) 2,500 mcg 18.75 In Sodium Chloride 0.9% 200 ml @ 50 MCG/HR 5 mls/ hr IV .Q24H [facility] Rx#: [id number] Tube Feeding 60 380 100 Other 280 30 Output: Chest Tube Drainage 0 36 Chest Tube Right Mid- 0 36 Axillary Chest Urine 830 1080 180 Other: Voiding Method Indwelling Catheter Indwelling Catheter - Exam General appearance: severe distress (Patient is currently intubated on the ventilator with sedation on board.) - EENT Eyes: EOMI, PERRLA, poor dentition ENT: other (ET tube in place and oral gastric tube in place.) Ears: bilateral: normal - Neck Neck: no rigidity, no stridor, no thyromegaly Carotids: bilateral: upstroke delayed - Respiratory Respiratory: bilateral: diminished, dullness, rales, rhonchi, wheezing, prolonged expiration (There is a right sided chest tube and minimal right subcutaneous emphysema) - Cardiovascular Rhythm: regular Heart sounds: normal: S1, S2 Abnormal Heart Sounds: systolic murmur, no rub, no S3 Gallop, no S4 Gallop, no click - Gastrointestinal General gastrointestinal: normal bowel sounds, soft, no splenomegaly, no tenderness, no umbilical hernia, no ventral hernia - Integumentary Integumentary: normal, normal turgor - Psychiatric Psychiatric: no A&O x's 3, no appropriate affect, no intact judgment & insight ( Patient is currently intubated and sedated on the ventilator.) - Labs CBC & Chem 7: 11/02/16 03:38 11/02/16 03:38 Labs: Abnormal Lab Results - Last 24 Hours (Table) 11/01/16 11/01/16 11/01/16 Range/Units 12:02 15:53 22:03 RBC (4.30-5.90) m/uL Hgb (13.0-17.5) gm/dL MCV (80.0-100.0) fL MCHC (31.0-37.0) g/dL ABG pH (7.35-7.45) ABG pCO2 (35-45) mmHg ABG pO2 (83-108) mmHg ABG HCO3 (21-25) mmol/L ABG Total CO2 (19-24) mmol/L ABG O2 Saturation (94-97) % BUN (9-20) mg/dL Glucose (74-99) mg/dL POC Glucose (mg/dL) 100 H (75-99) mg/dL Magnesium (1.6-2.3) mg/dL Troponin I 0.314 H* 0.237 H* (0.000-0.034) ng/mL 11/01/16 11/02/16 11/02/16 Range/Units 23:55 03:38 03:38 RBC 3.89 L (4.30-5.90) m/uL Hgb 12.3 L (13.0-17.5) gm/dL MCV 102.2 H (80.0-100.0) fL MCHC 30.8 L (31.0-37.0) g/dL ABG pH (7.35-7.45) ABG pCO2 (35-45) mmHg ABG pO2 (83-108) mmHg ABG HCO3 (21-25) mmol/L ABG Total CO2 (19-24) mmol/L ABG O2 Saturation (94-97) % BUN 21 H (9-20) mg/dL Glucose 122 H (74-99) mg/dL POC Glucose (mg/dL) 102 H (75-99) mg/dL Magnesium 2.4 H (1.6-2.3) mg/dL Troponin I (0.000-0.034) ng/mL 11/02/16 11/02/16 11/02/16 Range/Units 03:38 05:16 06:07 RBC (4.30-5.90) m/uL Hgb (13.0-17.5) gm/dL MCV (80.0-100.0) fL MCHC (31.0-37.0) g/dL ABG pH 7.28 L (7.35-7.45) ABG pCO2 65 H (35-45) mmHg ABG pO2 78 L (83-108) mmHg ABG HCO3 30 H (21-25) mmol/L ABG Total CO2 31 H (19-24) mmol/L ABG O2 Saturation 93.0 L (94-97) % BUN (9-20) mg/dL Glucose (74-99) mg/dL POC Glucose (mg/dL) 118 H (75-99) mg/dL Magnesium (1.6-2.3) mg/dL Troponin I 0.198 H* (0.000-0.034) ng/mL Microbiology - Last 24 Hours (Table) 11/01/16 04:58 Gram Stain - Preliminary Penis Wound Culture - Preliminary 11/01/16 04:58 Urine Culture - Preliminary Urine,Voided Assessment and Plan Plan: 1. Right sided spontaneous pneumothorax with acute on chronic hypoxic respiratory failure requiring intubation and mechanical ventilation. Post chest tube placement in the ER, continue DuoNeb treatments, Pulmicort 0.5 mg position twice every day, pulmonary consultation, thoracic surgery consultation monitor the patient very closely. 2. COPD exacerbation with chronic hypoxic respiratory failure and home O2 dependence. We will continue with nebulized treatment, oxygen support, monitor the blood gases. 3. Leukocytosis. Likely reactive monitor CBC the next 24 hours. 4. Degenerative disc disease. Stable at this time. 5. Severe emphysema with bulla . With recurrent pneumothorax. 6. Tobacco use and dependence. I believe the patient had quit smoking. 7. History of alcohol abuse. I believe the patient had cut back. 8. DVT prophylaxis. Heparin 5000 units subcutaneously every 12 hours. 9. GI prophylaxis. Start the patient on Protonix 40 mg orally once every day. 10. Admit to inpatient. Estimate a length of stay 2 midnights. 11. Patient is a full code. Discharge plan: Most likely return home Impression and plan of care have been directed as dictated by the signing physician. Dianelys Aden nurse practitioner acting as scribe for signing physician.
--- NOTE | 2016-11-02 16:12 | XR ---
EXAMINATION TYPE: XR chest 1V portable DATE OF EXAM: 11/02/2016 4:01 PM COMPARISON: 11/02/2016 earlier exam INDICATION: Right-sided pneumothorax TECHNIQUE: Single frontal view of the chest is obtained. Images in the supine view FINDINGS: The heart size is normal. The pulmonary vasculature is normal. Emphysematous bulla are at the left apex. Right pneumothorax has resolved. 2 right-sided chest tubes are present. Small residual pneumothorax may not be visualized in supine view. Some mild infiltrate is present at the bilateral lung bases most likely on the basis of atelectasis. Diaphragms are excluded from the [id number] limiting this exam. Subcutaneous emphysema is on the r ight chest wall. Endotracheal tube is present with the tip above the familia. Nasogastric tube transverses the field-of -view likely with the tip out of the thorax and abdomen. IMPRESSION: 1. Resolution previous right side pneumothorax. 2. COPD emphysematous bulla left apex. 3. Right basilar atelectasis. 4. Lines and catheters discussed above.
[2016-11-02 18:46] LABS: Glucose,Whole Blood 121 mg/dL (75-99)
--- NOTE | 2016-11-02 20:19 | OP ---
DATE OF SERVICE: SURGEON: Jovany Meyer MD PHOTO CARTOGRAPHER: AAMIR VALENTINE NP PREOPERATIVE DIAGNOSIS: Right pneumothorax. POSTOPERATIVE DIAGNOSIS: Right pneumothorax. OPERATION: Placement of right-sided chest tube. ANESTHESIA: Local with IV sedation. SPECIMENS REMOVED: None. COMPLICATIONS: None. ESTIMATED BLOOD LOSS: None. INDICATION: The patient is a 61-year-old male who presented to the hospital with a spontaneous right pneumothorax. A chest tube was placed in the emergency department. Of note, the patient is currently intubated. X-ray this afternoon revealed worsening right pneumothorax despite chest tube. There is some concern that the first chest tube was not functioning correctly. Placement of a new right chest tube was recommended. FINDINGS: A shaw of air was noted upon entry into the right pleural space. PROCEDURE IN DETAIL: The right chest and flank were prepped and draped in the usual sterile fashion. The patient was already on intravenous propofol. 1% lidocaine was infiltrated into the rib space. A small incision was created. Blunt dissection was carried down and the right pleural space was entered. A shaw of air was noted. A finger was introduced and a free space was discovered. A straight 28 Lithuanian chest tube was placed and directed into the right pleural space. The chest tube was then attached to the atrium and evacuation of air was noted. Follow-up chest x-ray revealed resolution of the pneumothorax with good placement of the tube. The patient appeared to tolerate the procedure well. There were no immediate complications. A sterile dressing was applied. FRED
[2016-11-03] MEDS: PROPOFOL 500 MG in EMPTY BAG 1 BAG IV SCH ×13 (01:58→22:59)
[2016-11-03] MEDS: HEPARIN SODIUM,PORCINE 5,000 UNIT/ML 1 ML VIAL SQ SCH ×3 (01:59→15:52)
[2016-11-03 02:10] LABS: Glucose,Whole Blood 121 mg/dL (75-99)
[2016-11-03] MEDS: IPRATROPIUM-ALBUTEROL 3 ML NEB INHALATION SCH ×6 (03:20→23:36)
[2016-11-03] MEDS: LORazepam 2 MG/ML SYRINGE IV PRN ×7 (03:56→22:00)
[2016-11-03] MEDS: SODIUM CHLORIDE 0.9% 1,000 ML IV SCH ×2 (03:57→15:51)
[2016-11-03 04:51] LABS: ABG PCO2 56 mmHg (35-45); ABG PH 7.34 (7.35-7.45)
[2016-11-03 04:52] LABS: ABG Base Excess 3.9 mmol/L; ABG HCO3 29 mmol/L (21-25); ABG PO2 95 mmHg (83-108); ABG TCO2 31 mmol/L (19-24)
[2016-11-03 05:52] LABS: Basophils % (A) 0 %; CH 31.2; CHCM 30.3; Eosinophils # (A) 0.2 k/uL (0-0.7); Eosinophils % (A) 2 %; HCT 39.3 % (39.0-53.0); HDW 2.12; HGB 11.9 gm/dL (13.0-17.5); Hypochromasia Slight; Luc # (Auto) 0.14; Luc % (Auto) 2; Lymphocytes % (A) 11 %; MCH 31.2 pg (25.0-35.0); MCHC 30.3 g/dL (31.0-37.0); MCV 103.1 fL (80.0-100.0); Macrocytosis Slight; Mean Platelet Volume 6.7; Monocytes # (A) 0.8 k/uL (0-1.0); Monocytes % (A) 8 %; Neutrophils # (A) 6.9 k/uL (1.3-7.7); Neutrophils % (A) 77 %; RBC 3.81 m/uL (4.30-5.90); RDW 13.4 % (11.5-15.5); WBC (Perox) 9.48
[2016-11-03 06:07] LABS: Partial Thromboplastin Time 25.4 sec (22.0-30.0); Prothrombin Time 10.4 sec (9.0-12.0)
[2016-11-03 06:11] LABS: Anion Gap 4 mmol/L; Blood Urea Nitrogen 19 mg/dL (9-20); Calcium 9.1 mg/dL (8.4-10.2); Carbon Dioxide 27 mmol/L (22-30); Chloride 110 mmol/L (98-107); Glucose 127 mg/dL (74-99); Magnesium 2.2 mg/dL (1.6-2.3); Non-African American GFR(MDRD) >60 (>60 ml/min/1.73 sqM); Phosphorous 2.6 mg/dL (2.5-4.5); Potassium 4.4 mmol/L (3.5-5.1); Sodium 141 mmol/L (137-145)
--- NOTE | 2016-11-03 07:13 | XR ---
EXAMINATION TYPE: XR chest 1V portable DATE OF EXAM: 11/03/2016 5:55 AM Comparison: 11/02/2016 Clinical History: 61-year-old male pneumothorax Findings: ET tube is satisfactory at or just below the level of medial fibular head. NG tube courses below the diaphragm. 2 right-sided chest tubes are present. There is suggestion of a trace peripheral right upp er pneumothorax. Hyperinflation with a bullous changes at the apices. Improving bibasilar aeration wi th residual small left pleural effusion with some adjacent opacity. Subcutaneous emphysema along the right lateral chest wall. Impression: 1. 2 right-sided chest tubes in place. A trace peripheral right upper pneumothorax is seen. 2. COPD with bullous emphysema. 3. Improving aeration with residual bibasilar infiltrates/atelectasis and continued small left pleura l effusion.
[2016-11-03] MEDS: BUDESONIDE 0.5 MG/2 ML NEBU INHALATION SCH ×2 (07:47→20:28)
[2016-11-03] MEDS: CHLORHEXIDINE GLUCONATE 15 ML CUP MUCOUS MEM SCH ×2 (08:11→20:47)
[2016-11-03] MEDS: PANTOPRAZOLE 40 MG/10 ML VIAL IVP SCH (08:12)
[2016-11-03] MEDS: LEVOFLOXACIN 500MG-D5W PMX 500 MG in DEXTROSE/WATER 1 100ML.BAG IVPB SCH (08:19)
--- NOTE | 2016-11-03 11:00 | ECHOF ---
Referral Reason:abnormal ecg, b/l pneumo MEASUREMENTS -------- HEIGHT: 190.5 cm WEIGHT: 105.2 kg BP: 107/59 RVIDd: 2.9 cm (< 3.3) IVSd: 1.2 cm (0.6 - 1.1) LVIDd: 4.4 cm (3.9 - 5.3) LVPWd: 1.2 cm (0.6 - 1.1) IVSs: 1.3 cm LVIDs: 3.8 cm LVPWs: 1.0 cm Ao Diam: 2.8 cm (2.0 - 3.7) AV Cusp: 1.4 cm (1.5 - 2.6) RAP: 5.00 mmHg RVSP: 9.94 mmHg FINDINGS -------- Resting tachycardia (HR>100bpm). Pt. on a vent. TDS due to pneumothorax. Limited views obtained. There is mild concentric left ventricular hypertrophy. Overall left ventricular systolic function is normal with, an EF between 55 - 60 %. The right ventricle is normal in size. The left atrium was not well visualized. The right atrium was not well visualized. 1.5mg of Definity was utilized for enhancement of images The aortic valve was not well visualized. The mitral valve was not well visualized. The tricuspid valve was not well visualized. The pulmonic valve was not well visualized. The aortic root size is normal. There is a small, generalized pericardial effusion present. CONCLUSIONS -------- 1. Resting tachycardia (HR>100bpm). 2. The aortic valve was not well visualized. 3. The mitral valve was not well visualized. 4. The tricuspid valve was not well visualized. 5. The pulmonic valve was not well visualized. 6. The aortic root size is normal. 7. There is a small, generalized pericardial effusion present. 8. Pt. on a vent. 9. TDS due to pneumothorax. Limited views obtained. 10. There is mild concentric left ventricular hypertrophy. 11. Overall left ventricular systolic function is normal with, an EF between 55 - 60 %. 12. The right ventricle is normal in size. 13. The left atrium was not well visualized. 14. The right atrium was not well visualized. 15. 1.5mg of Definity was utilized for enhancement of images LOSS CONTROL MANAGER: Stef Beard [facility]
[2016-11-03] MEDS: MULTIVITAMINS, THERA LIQUID 237 ML BOTTLE PO SCH (11:52)
[2016-11-03] MEDS: THIAMINE 100 MG TAB PO SCH (11:52)
[2016-11-03 12:22] LABS: Glucose,Whole Blood 111 mg/dL (75-99)
--- NOTE | 2016-11-03 14:45 | P.PN ---
Subjective Principal diagnosis: Right-sided pneumothorax, POD #1 placement of right-sided pleural chest tube. This patient is currently sedated on mechanical ventilation. Change from Versed /Fentanyl drips to propofol. Otherwise no other events noted overnight. Objective - Vital Signs Vital signs: Vital Signs Temp 99.4 F 11/02/16 12:00 Pulse 117 H 11/02/16 13:00 Resp 25 H 11/02/16 13:00 BP 124/72 11/02/16 13:00 Pulse Ox 94 L 11/02/16 13:00 Intake & Output 11/01/16 11/02/16 11/02/16 18:59 06:59 18:59 Intake Total 1782.804 4407.935 1366.680 Output Total 830 1116 261 Balance 205.939 2062.935 1105.680 Weight 99.79 kg 105.4 kg 105.4 kg Intake: IV 1215 1200 700 Midazolam HCl 100 mg In 10 Sodium Chloride 0.9% 80 ml @ 0.1 MG/KG/HR 9.97 mls/hr IV .Q10H2M ONE Rx# :[id number] Sodium Chloride 0.9% 1, 1200 1200 700 000 ml @ 100 mls/hr IV . Q10H [facility] Rx#:[id number] fentaNYL (PF) 2,500 mcg 5 In Sodium Chloride 0.9% 200 ml @ 20 MCG/HR 2 mls/ hr IV .Q24H [facility] Rx#: [id number] Intake, IV Titration 124.971 267.935 136.680 Amount Midazolam HCl 100 mg In 0 Sodium Chloride 0.9% 80 ml @ 0.1 MG/KG/HR 9.97 mls/hr IV .Q10H2M [facility] Rx# :[id number] Midazolam HCl 100 mg In 37.333 Sodium Chloride 0.9% 80 ml @ 10 MG/HR 10 mls/hr IV .Q10H [facility] Rx#: [id number] Propofol 500 mg In Empty 68.888 267.935 136.680 Bag 1 bag @ Titrate IV . Q0M [facility] Rx#:[id number] fentaNYL (PF) 2,500 mcg 18.75 In Sodium Chloride 0.9% 200 ml @ 50 MCG/HR 5 mls/ hr IV .Q24H [facility] Rx#: [id number] Tube Feeding 60 380 250 Other 280 280 Output: Chest Tube Drainage 0 36 4 Chest Tube Right Mid- 0 36 4 Axillary Chest Urine 830 1080 257 Other: Voiding Method Indwelling Catheter Indwelling Catheter - Constitutional General appearance: Present: no acute distress - Respiratory Details: Lungs sounds this morning were very diminished with expiratory wheezes present. Respirations were even but slightly taccypneic on mechanical ventilation. Settings this morning were FiO2 50%, tidal volume 500, respiratory rate 25, PEEP 5. Tidal volume recently increased to 550 per pulmonology. Right pleural chest tube to -20 cm wall suction, minimal output, minimal air leak present. - Cardiovascular Details: S1, S2 present. Regular rate, tachycardia rhythm. Sinus tach on telemetry. - Gastrointestinal Gastrointestinal Comment(s): Abdomen soft, nontender, nondistended. Active bowel sounds 4 quadrants. Currently has tube feeding infusing at 30 mL/h through OG tube. - Genitourinary Genitourinary Comment(s): Pelaez present draining yellow cloudy urine with sediment. Approximately 45-50 mL per hour. - Psychiatric Psychiatric Comment(s): Currently sedated on mechanical ventilation. - Labs CBC & Chem 7: 11/03/16 05:24 11/03/16 05:24 Labs: Abnormal Lab Results - Last 24 Hours (Table) 11/01/16 11/01/16 11/01/16 Range/Units 15:53 22:03 23:55 RBC (4.30-5.90) m/uL Hgb (13.0-17.5) gm/dL MCV (80.0-100.0) fL MCHC (31.0-37.0) g/dL ABG pH (7.35-7.45) ABG pCO2 (35-45) mmHg ABG pO2 (83-108) mmHg ABG HCO3 (21-25) mmol/L ABG Total CO2 (19-24) mmol/L ABG O2 Saturation (94-97) % BUN (9-20) mg/dL Glucose (74-99) mg/dL POC Glucose (mg/dL) 102 H (75-99) mg/dL Magnesium (1.6-2.3) mg/dL Troponin I 0.314 H* 0.237 H* (0.000-0.034) ng/mL 11/02/16 11/02/16 11/02/16 Range/Units 03:38 03:38 03:38 RBC 3.89 L (4.30-5.90) m/uL Hgb 12.3 L (13.0-17.5) gm/dL MCV 102.2 H (80.0-100.0) fL MCHC 30.8 L (31.0-37.0) g/dL ABG pH (7.35-7.45) ABG pCO2 (35-45) mmHg ABG pO2 (83-108) mmHg ABG HCO3 (21-25) mmol/L ABG Total CO2 (19-24) mmol/L ABG O2 Saturation (94-97) % BUN 21 H (9-20) mg/dL Glucose 122 H (74-99) mg/dL POC Glucose (mg/dL) (75-99) mg/dL Magnesium 2.4 H (1.6-2.3) mg/dL Troponin I 0.198 H* (0.000-0.034) ng/mL 11/02/16 11/02/16 11/02/16 Range/Units 05:16 06:07 12:21 RBC (4.30-5.90) m/uL Hgb (13.0-17.5) gm/dL MCV (80.0-100.0) fL MCHC (31.0-37.0) g/dL ABG pH 7.28 L (7.35-7.45) ABG pCO2 65 H (35-45) mmHg ABG pO2 78 L (83-108) mmHg ABG HCO3 30 H (21-25) mmol/L ABG Total CO2 31 H (19-24) mmol/L ABG O2 Saturation 93.0 L (94-97) % BUN (9-20) mg/dL Glucose (74-99) mg/dL POC Glucose (mg/dL) 118 H 140 H (75-99) mg/dL Magnesium (1.6-2.3) mg/dL Troponin I (0.000-0.034) ng/mL Microbiology - Last 24 Hours (Table) 11/02/16 04:00 Sputum Culture - Preliminary Sputum 11/01/16 04:58 Urine Culture - Final Urine,Voided 11/01/16 04:58 Gram Stain - Preliminary Penis Wound Culture - Preliminary - Imaging and Cardiology Chest x-ray: report reviewed, image reviewed Assessment and Plan (1) Pneumothorax, right Status: Acute (2) COPD (chronic obstructive pulmonary disease) Status: Acute (3) Respiratory failure Status: Acute Plan: The patient was seen and examined this morning with Dr. Meyer. All diagnostics were reviewed. Repeat cxr this afternoon demonstrated significant increase in right sided pneumothorax. Will place new chest tube. Ventilator management per pulmonology. More recommendations as patient progresses. Time with Patient: Greater than 30
--- NOTE | 2016-11-03 14:45 | P.PN ---
<Rosi Carrillo - Last Filed: 11/03/16 14:45> Subjective Principal diagnosis: Right-sided pneumothorax, POD #2 placement of superior right-sided pleural chest tube. POD #1 placement of inferior right-sided pleural chest tube. This patient is currently sedated on mechanical ventilation. Chest x-ray yesterday afternoon demonstrated increase in right pneumothorax to 60%. Second chest tube placed with complete re-expansion of the right lung. Objective - Vital Signs Vital signs: Vital Signs Temp 99.1 F 11/03/16 00:00 Pulse 90 11/03/16 07:47 Resp 25 H 11/03/16 07:00 BP 126/66 11/03/16 07:00 Pulse Ox 100 11/03/16 07:00 Intake & Output 11/02/16 11/03/16 11/03/16 18:59 06:59 18:59 Intake Total 2306.680 1865.183 Output Total 1112 1210 Balance 1194.680 655.183 Weight 105.4 kg 103.8 kg Intake: IV 1200 1300 Sodium Chloride 0.9% 1, 1200 1300 000 ml @ 100 mls/hr IV . Q10H [facility] Rx#:[id number] Intake, IV Titration 186.680 315.183 Amount Propofol 500 mg In Empty 186.680 315.183 Bag 1 bag @ Titrate IV . Q0M [facility] Rx#:[id number] Tube Feeding 500 250 Other 420 Output: Chest Tube Drainage 10 Chest Tube Right Lower 0 Mid-Axillary Chest Chest Tube Right Mid- 10 Axillary Chest Urine 1102 1210 Other: Voiding Method Indwelling Catheter Indwelling Catheter - Constitutional General appearance: Present: no acute distress - Respiratory Details: Lungs sounds very diminished but with better air exchange than yesterday. Respirations even but slightly to On mechanical ventilation. Current ventilator settings FiO2 50%, tidal volume 500, respiratory rate 25, PEEP 5. Superior right pleural chest tube to -20 cm wall suction, drained 20 mL serous fluid in the last 24 hours. Inferior right pleural chest tube to -20 cm wall suction, drained 5 mL serous fluid since placement. No air leak present in either chest tube. - Cardiovascular Details: S1, S2 present. Regular rate and rhythm, normal sinus rhythm to sinus tach on telemetry. No edema present. - Gastrointestinal Gastrointestinal Comment(s): Abdomen soft, nontender, nondistended. Active bowel sounds 4 quadrants. Currently tube fed at a rate of 50 mL per hour through OG tube. - Genitourinary Genitourinary Comment(s): Pelaez present draining clear, yellow urine. Urine output 50-100 mL/h. - Neurologic Neurologic Comment(s): Sedated on mechanical ventilation. - Psychiatric Psychiatric Comment(s): Sedated on mechanical ventilation, per nursing notes patient has periods of severe agitation. - Allied health notes Allied health notes reviewed: nursing - Labs CBC & Chem 7: 11/03/16 05:24 11/03/16 05:24 Labs: Abnormal Lab Results - Last 24 Hours (Table) 11/02/16 11/02/16 11/03/16 Range/Units 12:21 18:44 02:08 RBC (4.30-5.90) m/uL Hgb (13.0-17.5) gm/dL MCV (80.0-100.0) fL MCHC (31.0-37.0) g/dL ABG pH (7.35-7.45) ABG pCO2 (35-45) mmHg ABG HCO3 (21-25) mmol/L ABG Total CO2 (19-24) mmol/L Chloride (98-107) mmol/L Creatinine (0.66-1.25) mg/dL Glucose (74-99) mg/dL POC Glucose (mg/dL) 140 H 121 H 121 H (75-99) mg/dL 11/03/16 11/03/16 11/03/16 Range/Units 04:42 05:24 05:24 RBC 3.81 L (4.30-5.90) m/uL Hgb 11.9 L (13.0-17.5) gm/dL MCV 103.1 H (80.0-100.0) fL MCHC 30.3 L (31.0-37.0) g/dL ABG pH 7.34 L (7.35-7.45) ABG pCO2 56 H (35-45) mmHg ABG HCO3 29 H (21-25) mmol/L ABG Total CO2 31 H (19-24) mmol/L Chloride 110 H (98-107) mmol/L Creatinine 0.60 L (0.66-1.25) mg/dL Glucose 127 H (74-99) mg/dL POC Glucose (mg/dL) (75-99) mg/dL Microbiology - Last 24 Hours (Table) 11/02/16 04:00 Gram Stain - Preliminary Sputum Sputum Culture - Preliminary 11/01/16 04:58 Urine Culture - Final Urine,Voided - Imaging and Cardiology Chest x-ray: image reviewed Assessment and Plan (1) Pneumothorax, right Status: Acute (2) COPD (chronic obstructive pulmonary disease) Status: Acute (3) Respiratory failure Status: Acute Plan: 1. Wean O2 as tolerated. Ventilator management per pulmonology. 2. Maintain chest tube to wall suction. 3. Daily chest x-rays. 4. Other medical comorbidities to be managed per primary service. 5. Will continue to monitor for now and make determination in the future as to further possible surgical management. Time with Patient: Greater than 30 <Jovany Meyer - Last Filed: 11/04/16 16:29> Objective - Vital Signs Vital signs: Vital Signs Temp 97.8 F 11/04/16 13:00 Pulse 107 H 11/04/16 15:56 Resp 20 11/04/16 15:00 BP 105/49 11/04/16 15:00 Pulse Ox 97 11/04/16 15:00 Intake & Output 11/03/16 11/04/16 11/04/16 18:59 06:59 18:59 Intake Total 2461.244 2904.973 5875.324 Output Total 1157 885 885 Balance 1304.244 985.718 470.324 Weight 103.8 kg 105.4 kg 105.4 kg Intake: IV 1100 1200 900 Sodium Chloride 0.9% 1, 1100 1200 900 000 ml @ 100 mls/hr IV . Q10H [facility] Rx#:[id number] Intake, IV Titration 261.244 320.718 175.324 Amount Propofol 500 mg In Empty 261.244 320.718 175.324 Bag 1 bag @ Titrate IV . Q0M [facility] Rx#:[id number] Tube Feeding 680 350 280 Other 420 Output: Chest Tube Drainage 22 Chest Tube Right Lower 12 Mid-Axillary Chest Chest Tube Right Mid- 10 Axillary Chest Urine 1135 885 885 Other: Voiding Method Indwelling Catheter Indwelling Catheter Indwelling Catheter - Labs CBC & Chem 7: 11/04/16 04:21 11/04/16 04:21 Labs: Abnormal Lab Results - Last 24 Hours (Table) 11/04/16 11/04/16 11/04/16 Range/Units 01:30 01:30 04:21 WBC 11.2 H (3.8-10.6) k/uL RBC 3.71 L 3.83 L (4.30-5.90) m/uL Hgb 11.9 L 12.0 L (13.0-17.5) gm/dL Hct 38.4 L (39.0-53.0) % MCV 103.3 H 102.2 H (80.0-100.0) fL MCHC 30.7 L (31.0-37.0) g/dL Lymphocytes # 0.9 L (1.0-4.8) k/uL ABG pO2 (83-108) mmHg ABG O2 Saturation (94-97) % Carbon Dioxide 31 H (22-30) mmol/L Glucose 123 H (74-99) mg/dL POC Glucose (mg/dL) (75-99) mg/dL Total Protein 5.7 L (6.3-8.2) g/dL Albumin 3.2 L (3.5-5.0) g/dL 11/04/16 11/04/16 11/04/16 Range/Units 04:21 04:54 09:07 WBC (3.8-10.6) k/uL RBC (4.30-5.90) m/uL Hgb (13.0-17.5) gm/dL Hct (39.0-53.0) % MCV (80.0-100.0) fL MCHC (31.0-37.0) g/dL Lymphocytes # (1.0-4.8) k/uL ABG pO2 149 H (83-108) mmHg ABG O2 Saturation 99.0 H (94-97) % Carbon Dioxide (22-30) mmol/L Glucose 112 H (74-99) mg/dL POC Glucose (mg/dL) 130 H (75-99) mg/dL Total Protein (6.3-8.2) g/dL Albumin (3.5-5.0) g/dL 11/04/16 Range/Units 12:12 WBC (3.8-10.6) k/uL RBC (4.30-5.90) m/uL Hgb (13.0-17.5) gm/dL Hct (39.0-53.0) % MCV (80.0-100.0) fL MCHC (31.0-37.0) g/dL Lymphocytes # (1.0-4.8) k/uL ABG pO2 (83-108) mmHg ABG O2 Saturation (94-97) % Carbon Dioxide (22-30) mmol/L Glucose (74-99) mg/dL POC Glucose (mg/dL) 112 H (75-99) mg/dL Total Protein (6.3-8.2) g/dL Albumin (3.5-5.0) g/dL Microbiology - Last 24 Hours (Table) 11/02/16 04:00 Gram Stain - Final Sputum Sputum Culture - Final 11/01/16 04:58 Gram Stain - Final Penis Wound Culture - Final Assessment and Plan Plan: The patient was seen and examined. I agree with the above assessment and plan. His chest x-ray today reveals no significant right pneumothorax. There is no significant air leak noted. The patient remains intubated. We will keep the chest tube on suction for now.
--- NOTE | 2016-11-03 15:41 | P.PN ---
Subjective This is a 60-year-old male one of my patient with a previous medical history significant for extensive COPD with bullous emphysema, hyperlipidemia, hypertension. He was recently admitted from our facility and discharged on secondary to left spontaneous pneumothorax. He presented initially on 04/27/2016 with increasing shortness of breath and was found to have a left- sided pneumothorax requiring ThoraVent by cardiothoracic surgeon, and the patient was subsequently admitted to the selective care unit. . CAT scan of the chest performed at that time shows extensive COPD with bullae formation as well as upper lung fibrosis. Also was treated with COPD exacerbation requiring oral prednisone and inhalers. He was finally discharged with residual pneumothorax of 15% on chest x-ray, subsequently the patient was discharged home and then came back with significant pneumothorax with subcutaneous emphysema that time 40-50% collapse with subcutaneous emphysema. No mediastinal shift. Chest tube was placed at the emergency room by the emergency room physician and was transferred to selective care with consults to cardiothoracic surgeon, eventually patient was discharged home on THORAVENT after his chest tube was removed and he was supposed to come back to the emergency department for evaluation for possible removal of ThORAVENT, Patient underwent a bedside left-sided talc pleurodesis with Dr. Mejia, and eventually was sent home and follow up with me as an outpatient, patient has been doing fine and he has been following with thoracic surgery as an outpatient until he was cleared the patient up or he came to the emergency department at [facility] yesterday with increased shortness breath he was found to have a significant right-sided pneumothorax about 50% and had a long conversation with the ER physician and contacted Dr. Mejia at that time and the plan was to transfer the patient to the emergency department at [facility] for evaluation by thoracic surgery as there was no thrush surgery on site at [facility], patient was transferred on a BiPAP by the time he got there he became quite hypoxemic he ended up intubating the patient to the ER he had right-sided chest tube that was placed by Dr. Galaviz and subsequently he was admitted to the intensive care unit, and pulmonary consultation was obtained from Dr. Dueñas. 11/02: Patient continues to be intubated on mechanical ventilation. Chest tube remains in place for right spontaneous pneumothorax. He is followed by cardiothoracic surgeon as well as Dr. Dueñas from pulmonary medicine. Patient is also followed by cardiology and noted to have borderline troponins likely due to hypoxia and troponin leak. Echocardiogram has been ordered and report is pending. Tube feedings have been started. Urine output has been 30-35 mL per hour. No diarrhea. 11/03: Patient is laying down in bed he can dyspnea on the ventilator he is currently on the CMV mode with FiO2 of 50%, tidal volume of 500 and PEEP of 5 he is currently sedated, he has 2 chest tubes and top of each other on the right side. I spoke with his at the bedside and all her questions were answered. Objective - Vital Signs Vital signs: Vital Signs Temp 98.1 F 11/03/16 12:00 Pulse 91 11/03/16 12:00 Resp 24 11/03/16 12:00 BP 94/50 11/03/16 12:00 Pulse Ox 99 11/03/16 12:00 Intake & Output 11/02/16 11/03/16 11/03/16 18:59 06:59 18:59 Intake Total 2306.680 2057.975 7045.302 Output Total 1112 1210 465 Balance 1194.680 655.183 564.302 Weight 105.4 kg 103.8 kg 103.8 kg Intake: IV 1200 1300 500 Sodium Chloride 0.9% 1, 1200 1300 500 000 ml @ 100 mls/hr IV . Q10H [facility] Rx#:[id number] Intake, IV Titration 186.680 315.183 99.302 Amount Propofol 500 mg In Empty 186.680 315.183 99.302 Bag 1 bag @ Titrate IV . Q0M [facility] Rx#:[id number] Tube Feeding 500 250 290 Other 420 140 Output: Chest Tube Drainage 10 10 Chest Tube Right Lower 0 4 Mid-Axillary Chest Chest Tube Right Mid- 10 6 Axillary Chest Urine 1102 1210 455 Other: Voiding Method Indwelling Catheter Indwelling Catheter - Exam Exam General appearance: severe distress (Patient is currently intubated on the ventilator with sedation on board.) - EENT Eyes: EOMI, PERRLA, poor dentition ENT: other (ET tube in place and oral gastric tube in place.) Ears: bilateral: normal - Neck Neck: no rigidity, no stridor, no thyromegaly Carotids: bilateral: upstroke delayed - Respiratory Respiratory: bilateral: diminished, dullness, rales, rhonchi, wheezing, prolonged expiration (There is a right sided chest tube and minimal right subcutaneous emphysema) - Cardiovascular Rhythm: regular Heart sounds: normal: S1, S2 Abnormal Heart Sounds: systolic murmur, no rub, no S3 Gallop, no S4 Gallop, no click - Gastrointestinal General gastrointestinal: normal bowel sounds, soft, no splenomegaly, no tenderness, no umbilical hernia, no ventral hernia - Integumentary Integumentary: normal, normal turgor - Psychiatric Psychiatric: no A&O x's 3, no appropriate affect, no intact judgment & insight ( Patient is currently intubated and sedated on the ventilator.) - Labs CBC & Chem 7: 11/03/16 05:24 11/03/16 05:24 Labs: Abnormal Lab Results - Last 24 Hours (Table) 11/02/16 11/03/16 11/03/16 Range/Units 18:44 02:08 04:42 RBC (4.30-5.90) m/uL Hgb (13.0-17.5) gm/dL MCV (80.0-100.0) fL MCHC (31.0-37.0) g/dL ABG pH 7.34 L (7.35-7.45) ABG pCO2 56 H (35-45) mmHg ABG HCO3 29 H (21-25) mmol/L ABG Total CO2 31 H (19-24) mmol/L Chloride (98-107) mmol/L Creatinine (0.66-1.25) mg/dL Glucose (74-99) mg/dL POC Glucose (mg/dL) 121 H 121 H (75-99) mg/dL 11/03/16 11/03/16 11/03/16 Range/Units 05:24 05:24 12:20 RBC 3.81 L (4.30-5.90) m/uL Hgb 11.9 L (13.0-17.5) gm/dL MCV 103.1 H (80.0-100.0) fL MCHC 30.3 L (31.0-37.0) g/dL ABG pH (7.35-7.45) ABG pCO2 (35-45) mmHg ABG HCO3 (21-25) mmol/L ABG Total CO2 (19-24) mmol/L Chloride 110 H (98-107) mmol/L Creatinine 0.60 L (0.66-1.25) mg/dL Glucose 127 H (74-99) mg/dL POC Glucose (mg/dL) 111 H (75-99) mg/dL Microbiology - Last 24 Hours (Table) 11/02/16 04:00 Gram Stain - Preliminary Sputum Sputum Culture - Preliminary 11/01/16 04:58 Urine Culture - Final Urine,Voided Assessment and Plan Plan: Assessment and Plan Plan: 1. Right sided spontaneous pneumothorax with acute on chronic hypoxic respiratory failure requiring intubation and mechanical ventilation. Post chest tube placement in the ER, continue DuoNeb treatments, Pulmicort 0.5 mg position twice every day, pulmonary consultation, thoracic surgery consultation monitor the patient very closely. 2. COPD exacerbation with chronic hypoxic respiratory failure and home O2 dependence. We will continue with nebulized treatment, oxygen support, monitor the blood gases. 3. Leukocytosis. Likely reactive monitor CBC the next 24 hours. 4. Degenerative disc disease. Stable at this time. 5. Severe emphysema with bulla . With recurrent pneumothorax. 6. Tobacco use and dependence. I believe the patient had quit smoking. 7. History of alcohol abuse. I believe the patient had cut back. 8. DVT prophylaxis. Heparin 5000 units subcutaneously every 12 hours. 9. GI prophylaxis. Start the patient on Protonix 40 mg orally once every day. 10. Admit to inpatient. Estimate a length of stay 2 midnights. 11. Patient is a full code. Discharge plan: Most likely return home
--- NOTE | 2016-11-03 16:12 | P.PN ---
Subjective Principal diagnosis: pneumothorax, respiratory failure Patient seen and examined with nursing staff and family at bedside. The patient did have a second chest tube placed yesterday due to recurrent right- sided pneumothorax. The case is discussed with the thoracic and PE and pleurodesis is being considered. The patient has been receiving Ativan, propofol, morphine for agitation. A sedation holiday was attempted this morning and the patient's heart rate as well as respiratory rate increased. The patient became extremely agitated. The family is updated and is aware that we will do daily sedation holidays as well as attempting spontaneous breathing trials. Objective - Vital Signs Vital signs: Vital Signs Temp 98.1 F 11/03/16 12:00 Pulse 103 H 11/03/16 16:03 Resp 27 H 11/03/16 15:00 BP 133/57 11/03/16 15:00 Pulse Ox 100 11/03/16 15:00 Intake & Output 11/02/16 11/03/16 11/03/16 18:59 06:59 18:59 Intake Total 2306.680 9111.046 6667.916 Output Total 1112 1210 869 Balance 1194.680 655.183 868.916 Weight 105.4 kg 103.8 kg 103.8 kg Intake: IV 1200 1300 800 Sodium Chloride 0.9% 1, 1200 1300 800 000 ml @ 100 mls/hr IV . Q10H [facility] Rx#:[id number] Intake, IV Titration 186.680 315.183 187.916 Amount Propofol 500 mg In Empty 186.680 315.183 187.916 Bag 1 bag @ Titrate IV . Q0M [facility] Rx#:[id number] Tube Feeding 500 250 470 Other 420 280 Output: Chest Tube Drainage 10 14 Chest Tube Right Lower 0 8 Mid-Axillary Chest Chest Tube Right Mid- 10 6 Axillary Chest Urine 1102 1210 855 Other: Voiding Method Indwelling Catheter Indwelling Catheter Indwelling Catheter - Exam Gen.: Patient is sedated on ventilator Cardiovascular: Regular rate and rhythm, S1/S2 Lungs: Diminished breath sounds bilaterally with scattered wheezing, right chest tube in place x 2 Abdomen: Soft nontender nondistended positive bowel sounds Extremities: No edema - Labs CBC & Chem 7: 11/03/16 05:24 11/03/16 05:24 Labs: Abnormal Lab Results - Last 24 Hours (Table) 0511/03/16 11/03/16 Range/Units 18:44 02:08 04:42 RBC (4.30-5.90) m/uL Hgb (13.0-17.5) gm/dL MCV (80.0-100.0) fL MCHC (31.0-37.0) g/dL ABG pH 7.34 L (7.35-7.45) ABG pCO2 56 H (35-45) mmHg ABG HCO3 29 H (21-25) mmol/L ABG Total CO2 31 H (19-24) mmol/L Chloride (98-107) mmol/L Creatinine (0.66-1.25) mg/dL Glucose (74-99) mg/dL POC Glucose (mg/dL) 121 H 121 H (75-99) mg/dL 11/03/16 11/03/16 11/03/16 Range/Units 05:24 05:24 12:20 RBC 3.81 L (4.30-5.90) m/uL Hgb 11.9 L (13.0-17.5) gm/dL MCV 103.1 H (80.0-100.0) fL MCHC 30.3 L (31.0-37.0) g/dL ABG pH (7.35-7.45) ABG pCO2 (35-45) mmHg ABG HCO3 (21-25) mmol/L ABG Total CO2 (19-24) mmol/L Chloride 110 H (98-107) mmol/L Creatinine 0.60 L (0.66-1.25) mg/dL Glucose 127 H (74-99) mg/dL POC Glucose (mg/dL) 111 H (75-99) mg/dL Microbiology - Last 24 Hours (Table) 11/01/16 04:58 Gram Stain - Final Penis Wound Culture - Final 11/02/16 04:00 Gram Stain - Preliminary Sputum Sputum Culture - Preliminary Assessment and Plan Plan: Acute on chronic hypoxic and hypercapnic respiratory failure Right spontaneous pneumothorax, CT in place x2 Bullous emphysema History of tobacco abuse Alcohol abuse Hematuria Acute exacerbation of COPD Continue full ventilator support, ABG reviewed, continue current settings Patient was unable to tolerate sedation holiday and SBT this morning, will reassess tomorrow morning AM ABG Serial chest x-rays Chest tubes per thoracic surgery Antibiotics: Levaquin Sputum, blood, urine cultures Bronchodilators and Pulmicort Continue propofol and morphine/ativan pushes as needed GI and DVT prophylaxis Continue tube feeding, consult dietitian Tylenol PRN fever Sedation holiday and SBT in AM
[2016-11-03] MEDS: MORPHINE SULFATE 2 MG/ML SYRINGE IVP PRN ×2 (18:31→22:35)
[2016-11-03 19:04] LABS: Glucose,Whole Blood 99 mg/dL (75-99)
[2016-11-04] MEDS: HEPARIN SODIUM,PORCINE 5,000 UNIT/ML 1 ML VIAL SQ SCH ×3 (00:33→15:25)
[2016-11-04] MEDS: PROPOFOL 500 MG in EMPTY BAG 1 BAG IV SCH ×11 (00:33→22:06)
[2016-11-04] MEDS: LORazepam 2 MG/ML SYRINGE IV PRN ×9 (00:37→22:18)
[2016-11-04 01:52] LABS: CH 31.2; CHCM 30.3; HCT 38.4 % (39.0-53.0); HGB 11.9 gm/dL (13.0-17.5); Hypochromasia Slight; MCH 32.1 pg (25.0-35.0); MCHC 31.1 g/dL (31.0-37.0); MCV 103.3 fL (80.0-100.0); Macrocytosis Slight; Mean Platelet Volume 6.9; RBC 3.71 m/uL (4.30-5.90); RDW 13.4 % (11.5-15.5); WBC 11.2 k/uL (3.8-10.6)
[2016-11-04 02:04] LABS: ALT 48 U/L (21-72); AST 29 U/L (17-59); Alkaline Phosphatase 74 U/L (38-126); Anion Gap 7 mmol/L; Blood Urea Nitrogen 13 mg/dL (9-20); Carbon Dioxide 31 mmol/L (22-30); Chloride 106 mmol/L (98-107); Glucose 123 mg/dL (74-99); Non-African American GFR(MDRD) >60 (>60 ml/min/1.73 sqM); Phosphorous 3.8 mg/dL (2.5-4.5); Potassium 4.5 mmol/L (3.5-5.1); Sodium 144 mmol/L (137-145); Total Bilirubin 0.3 mg/dL (0.2-1.3); Total Protein 5.7 g/dL (6.3-8.2)
--- NOTE | 2016-11-04 02:06 | XR ---
EXAM: XR Chest, 1 View CLINICAL HISTORY: Reason: tachypnic TECHNIQUE: Frontal view of the chest. COMPARISON: Portable chest of the prior morning, and 11/01/[address] FINDINGS: Lungs: There is again diffuse right chest wall soft tissue emphysema present, along with 2 right-sided chest tubes and probable tiny residual right pneumothorax, stable. There is again severe bullous emphysema. Small amount of left pleural effusion and underlying atelectasis is likewise stable. No new or enlarging infiltrate. Pleural space: See above. Heart: The heart size is stable and within normal limits. Mediastinum: Stable and within normal limits. Bones/joints: Stable without acute displaced fracture. Tubes, lines and devices: ET tube in satisfactory position. NG tube again courses below the diaphragm with sidehole just below the level of the GE junction. IMPRESSION: No definite interval change is seen since the prior morning, including tiny residual right pneumothorax with 2 chest tubes present, and small left pleural effusion, as above.
[2016-11-04] MEDS: IPRATROPIUM-ALBUTEROL 3 ML NEB INHALATION SCH ×6 (03:11→23:55)
[2016-11-04] MEDS: MORPHINE SULFATE 2 MG/ML SYRINGE IVP PRN ×4 (04:17→22:34)
[2016-11-04 05:21] LABS: Basophils % (A) 0 %; CH 30.9; CHCM 30.3; Eosinophils # (A) 0.2 k/uL (0-0.7); Eosinophils % (A) 2 %; HCT 39.1 % (39.0-53.0); HDW 2.09; Hypochromasia Slight; Luc % (Auto) 1; Lymphocytes # (A) 0.9 k/uL (1.0-4.8); Lymphocytes % (A) 11 %; MCH 31.4 pg (25.0-35.0); MCHC 30.7 g/dL (31.0-37.0); MCV 102.2 fL (80.0-100.0); Macrocytosis Slight; Mean Platelet Volume 7.3; Monocytes # (A) 0.7 k/uL (0-1.0); Monocytes % (A) 8 %; Neutrophils # (A) 6.4 k/uL (1.3-7.7); Neutrophils % (A) 77 %; RBC 3.83 m/uL (4.30-5.90); RDW 13.4 % (11.5-15.5); WBC 8.2 k/uL (3.8-10.6); WBC (Perox) 8.93
[2016-11-04 05:31] LABS: ABG Base Excess -1.5 mmol/L; ABG HCO3 23 mmol/L (21-25); ABG PCO2 42 mmHg (35-45); ABG PH 7.36 (7.35-7.45); ABG PO2 149 mmHg (83-108); ABG TCO2 24 mmol/L (19-24)
[2016-11-04 05:35] LABS: Anion Gap 7 mmol/L; Blood Urea Nitrogen 14 mg/dL (9-20); Carbon Dioxide 30 mmol/L (22-30); Chloride 106 mmol/L (98-107); Glucose 112 mg/dL (74-99); Magnesium 2.1 mg/dL (1.6-2.3); Non-African American GFR(MDRD) >60 (>60 ml/min/1.73 sqM); Phosphorous 3.8 mg/dL (2.5-4.5); Potassium 4.5 mmol/L (3.5-5.1); Sodium 143 mmol/L (137-145)
[2016-11-04] MEDS: SODIUM CHLORIDE 0.9% 1,000 ML IV SCH ×3 (05:48→14:17)
[2016-11-04] MEDS: BUDESONIDE 0.5 MG/2 ML NEBU INHALATION SCH ×2 (07:55→19:43)
[2016-11-04] MEDS: PANTOPRAZOLE 40 MG/10 ML VIAL IVP SCH (08:04)
[2016-11-04] MEDS: LEVOFLOXACIN 500MG-D5W PMX 500 MG in DEXTROSE/WATER 1 100ML.BAG IVPB SCH (08:04)
[2016-11-04] MEDS: CHLORHEXIDINE GLUCONATE 15 ML CUP MUCOUS MEM SCH ×2 (08:05→22:06)
[2016-11-04 09:08] LABS: Glucose,Whole Blood 130 mg/dL (75-99)
[2016-11-04] MEDS: PIPERACILLIN-TAZOBACTAM 3.375 GM in DEXTROSE/WATER 1 50ML.BAG IVPB SCH ×2 (10:31→15:25)
--- NOTE | 2016-11-04 11:11 | XR ---
EXAMINATION TYPE: XR chest 1V portable DATE OF EXAM: 11/04/2016 6:41 AM COMPARISON: 11/04/2016 INDICATION: Pneumothorax TECHNIQUE: Single frontal view of the chest is obtained. FINDINGS: The heart size is normal. The pulmonary vasculature is normal. The lungs are clear. Small pneumothorax is present. 2 right-sided chest tubes are present. Subcutaneous emphysema is prese nt on the right. Endotracheal tube is present above the familia. Nasogastric tube transverses the thorax. IMPRESSION: 1. Small residual right sided pneumothorax 2 lines and catheters discussed above.
[2016-11-04] MEDS: MULTIVITAMINS, THERA LIQUID 237 ML BOTTLE PO SCH (11:26)
[2016-11-04] MEDS: THIAMINE 100 MG TAB PO SCH (11:26)
[2016-11-04 12:15] LABS: Glucose,Whole Blood 112 mg/dL (75-99)
--- NOTE | 2016-11-04 12:29 | PN ---
DATE OF SERVICE: 11/04/2016 The patient is a 61-year-old male who was seen in the ICU. Remains on mechanical ventilator. Nursing is at the bedside as well as patient's . The patient does have a low grade temp today. Nursing states that the patient did have an episode of agitation last night where the OG tube seemed to be somewhat dislodged and there is some concern whether or not the patient may have aspirated. The patient is on the max dose of Diprivan and is requiring Ativan as well for what appears to be active delirium tremors. Patient's does state the patient drinks daily at home. On physical exam, vital signs temp is 99.4, heart rate is 94, respiratory rate 25, blood pressure is 139/55, O2 sat is 100% on mechanical ventilator with an FiO2 at 40%. HEENT: Head is normocephalic, atraumatic. NECK: Supple. Trachea is midline. LUNGS: With decreased breath sounds, more so on the right than the left. HEART: S1 and S2 are heard. Not tachycardic. ABDOMEN: Soft. Bowel sounds are heard. EXTREMITIES: With 1 to 2+ edema to the bilateral upper extremities, arms and hands. Lower extremities with trace edema. Patient does have some pretty significant scrotal edema. NEUROLOGIC: The patient is sedated on a mechanical ventilator. LABS: White count is 8.2, hemoglobin is 12.0, hematocrit 39.1 with 210,000 platelets. PT is 10. INR is 1.0, PTT is 26. Blood gases with a pH of 7.36, pCO2 of 42, pO2 of 149, bicarb 23. Total CO2 is 94. O2 sats 99%, that is on an FiO2 at 50. Sodium is 143, potassium is 4.5, chloride 106, CO2 is 30. Anion gap 7. BUN is 14, creatinine 0.70. Glucose is 112. Calcium is 9. Phosphorus 3.8. Magnesium is 2.1. IMAGING: Chest x-ray done at 6:00 this morning shows small residual right-sided pneumothorax, 2 lines and catheter as discussed above. IMPRESSION: 1. Acute on chronic hypoxic and hypercapnic respiratory failure. 2. Right spontaneous pneumothorax. Chest tube in placed x2, one to be removed by thoracic surgery later this morning. 3. Bullous emphysema. 4. Delirium tremors. 5. Alcohol abuse. 6. History of tobacco abuse. 7. Hematuria, which is clearing. 8. Acute exacerbation of chronic obstructive pulmonary disease. PLAN: Continue mechanical ventilator. Continue current medications, which have been reviewed. Continue chest tube per thoracic surgery. Continue antibiotics, bronchodilators, aerosolized steroids, GI and DVT prophylaxis. Continue the CIWA scale. Continue Diprivan. Continue tube feedings. The patient has been started on Zosyn for possible aspiration. Continue Tylenol as needed for fever. Will rest patient for the next 24 hours and possibly try a sedation holiday over the weekend.
--- NOTE | 2016-11-04 13:51 | P.PN ---
<Francisco Quintero - Last Filed: 11/04/16 13:44> Progress Note - Text Thoracic Surgery Nursing POD: #3, placement of superior right-sided pleural chest tube. POD #2, placement of inferior right-sided pleural chest. This patient is currently sedated on mechanical ventilation. Chest x-ray today showed resolution of right-sided pneumothorax. Vital Signs: Vital Signs - 24 hr 11/03/16 11/03/16 11/03/16 14:00 15:00 16:00 Temperature 97.9 F Pulse Rate 93 101 H 103 H Respiratory 24 27 H 25 H Rate Blood Pressure 143/48 133/57 117/58 O2 Sat by Pulse 100 100 100 Oximetry 11/03/16 11/03/16 11/03/16 16:03 16:19 17:00 Temperature Pulse Rate 103 H 110 H 112 H Respiratory 25 H Rate Blood Pressure 157/58 O2 Sat by Pulse 100 Oximetry 11/03/16 11/03/16 11/03/16 18:00 19:00 20:00 Temperature 98.1 F Pulse Rate 112 H 112 H 94 Respiratory 25 H 27 H 29 H Rate Blood Pressure 150/60 140/64 113/58 O2 Sat by Pulse 100 99 100 Oximetry 11/03/16 11/03/16 11/03/16 20:30 21:00 21:05 Temperature Pulse Rate 105 H 122 H 100 Respiratory 27 H Rate Blood Pressure 199/92 O2 Sat by Pulse 100 Oximetry 11/03/16 11/03/16 11/03/16 22:00 22:39 23:00 Temperature 100.1 F H Pulse Rate 126 H 126 H 125 H Respiratory 29 H 41 H 33 H Rate Blood Pressure 217/76 181/64 151/70 O2 Sat by Pulse 100 100 100 Oximetry 11/03/16 11/03/16 11/04/16 23:28 23:41 00:00 Temperature 99.1 F Pulse Rate 112 H 113 H 103 H Respiratory 25 H Rate Blood Pressure 78/45 O2 Sat by Pulse 100 Oximetry 11/04/16 11/04/16 11/04/16 01:00 02:00 03:00 Temperature Pulse Rate 131 H 110 H 105 H Respiratory 35 H 24 25 H Rate Blood Pressure 149/67 85/45 115/50 O2 Sat by Pulse 98 95 96 Oximetry 11/04/16 11/04/16 11/04/16 03:03 03:14 04:00 Temperature 98.1 F Pulse Rate 103 H 102 H 126 H Respiratory 24 Rate Blood Pressure 186/57 O2 Sat by Pulse 100 Oximetry 11/04/16 11/04/16 11/04/16 05:00 06:00 07:00 Temperature Pulse Rate 106 H 95 94 Respiratory 24 25 H 25 H Rate Blood Pressure 94/50 152/56 133/48 O2 Sat by Pulse 98 99 100 Oximetry 11/04/16 11/04/16 11/04/16 07:56 08:00 08:06 Temperature 99.4 F Pulse Rate 96 96 98 Respiratory 25 H Rate Blood Pressure 140/48 O2 Sat by Pulse 100 Oximetry 11/04/16 11/04/16 11/04/16 09:00 10:00 11:00 Temperature Pulse Rate 87 94 97 Respiratory 25 H 25 H 24 Rate Blood Pressure 112/49 139/55 151/55 O2 Sat by Pulse 97 100 100 Oximetry 11/04/16 11/04/16 11/04/16 11:13 11:23 12:00 Temperature 98.4 F Pulse Rate 98 100 94 Respiratory 24 Rate Blood Pressure 131/50 O2 Sat by Pulse 100 Oximetry Labs: Short CBC 11/04/16 11/04/16 Range/Units 01:30 04:21 WBC 11.2 H 8.2 (3.8-10.6) k/uL Hgb 11.9 L 12.0 L (13.0-17.5) gm/dL Hct 38.4 L 39.1 (39.0-53.0) % Plt Count 216 210 (150-450) k/uL Neutrophils # 6.4 (1.3-7.7) k/uL BMP 11/04/16 11/04/16 01:30 04:21 Sodium 144 143 Potassium 4.5 4.5 Chloride 106 106 Carbon Dioxide 31 H 30 BUN 13 14 Creatinine 0.70 0.70 Glucose 123 H 112 H Calcium 9.0 9.0 Liver Function 11/04/16 Range/Units 01:30 Total Bilirubin 0.3 (0.2-1.3) mg/dL AST 29 (17-59) U/L ALT 48 (21-72) U/L Alkaline Phosphatase 74 (38-126) U/L Albumin 3.2 L (3.5-5.0) g/dL O2 sat: 100% on mechanical ventilation U/O: Pelaez catheter is draining adequate amounts of urine Chest Tubes: Superior right pleural chest tube without visible air leak and with minimal drainage. Inferior right pleural chest tube with small visible air leak and with minimal drainage. 24 hr Total: Intake & Output 11/02/16 11/03/16 11/04/16 11/05/16 06:59 06:59 06:59 06:59 Intake Total 3527.906 4171.863 4331.962 955.324 Output Total 1946 2322 2042 585 Balance 5437.561 6704.863 2289.962 370.324 Weight 105.4 kg 103.8 kg 105.4 kg 105.4 kg Plan: Discontinue superior right pleural chest tube. Continue inferior right pleural chest tube. Medical management and vent management per operations accountant. Repeat chest x-ray in a.m. <Jovany Meyer - Last Filed: 11/04/16 16:31> Progress Note - Text The patient was seen and examined. I agree with the above assessment and plan. His chest x-ray does not reveal any significant right pneumothorax. There is no obvious air leak on suction. We will remove his right superior chest tube which was placed in the emergency department. We will keep the lower chest tube on suction for now. Ventilator management per pulmonary.
--- NOTE | 2016-11-04 14:34 | P.PN ---
Subjective This is a 60-year-old male one of my patient with a previous medical history significant for extensive COPD with bullous emphysema, hyperlipidemia, hypertension. He was recently admitted from our facility and discharged on secondary to left spontaneous pneumothorax. He presented initially on 04/27/2016 with increasing shortness of breath and was found to have a left- sided pneumothorax requiring ThoraVent by cardiothoracic surgeon, and the patient was subsequently admitted to the selective care unit. . CAT scan of the chest performed at that time shows extensive COPD with bullae formation as well as upper lung fibrosis. Also was treated with COPD exacerbation requiring oral prednisone and inhalers. He was finally discharged with residual pneumothorax of 15% on chest x-ray, subsequently the patient was discharged home and then came back with significant pneumothorax with subcutaneous emphysema that time 40-50% collapse with subcutaneous emphysema. No mediastinal shift. Chest tube was placed at the emergency room by the emergency room physician and was transferred to selective care with consults to cardiothoracic surgeon, eventually patient was discharged home on THORAVENT after his chest tube was removed and he was supposed to come back to the emergency department for evaluation for possible removal of ThORAVENT, Patient underwent a bedside left-sided talc pleurodesis with Dr. Mejia, and eventually was sent home and follow up with me as an outpatient, patient has been doing fine and he has been following with thoracic surgery as an outpatient until he was cleared the patient up or he came to the emergency department at [facility] yesterday with increased shortness breath he was found to have a significant right-sided pneumothorax about 50% and had a long conversation with the ER physician and contacted Dr. Mejia at that time and the plan was to transfer the patient to the emergency department at [facility] for evaluation by thoracic surgery as there was no thrush surgery on site at [facility], patient was transferred on a BiPAP by the time he got there he became quite hypoxemic he ended up intubating the patient to the ER he had right-sided chest tube that was placed by Dr. Galaviz and subsequently he was admitted to the intensive care unit, and pulmonary consultation was obtained from Dr. Dueñas. 11/02: Patient continues to be intubated on mechanical ventilation. Chest tube remains in place for right spontaneous pneumothorax. He is followed by cardiothoracic surgeon as well as Dr. Dueñas from pulmonary medicine. Patient is also followed by cardiology and noted to have borderline troponins likely due to hypoxia and troponin leak. Echocardiogram has been ordered and report is pending. Tube feedings have been started. Urine output has been 30-35 mL per hour. No diarrhea. 11/03: Patient is laying down in bed he can dyspnea on the ventilator he is currently on the CMV mode with FiO2 of 50%, tidal volume of 500 and PEEP of 5 he is currently sedated, he has 2 chest tubes and top of each other on the right side. I spoke with his at the bedside and all her questions were answered. 11/04: Patient remains sedated, intubated and on on mechanical ventilation. Patient had episode of restlessness with increased heart rate and tube feeding didn't come loose and there was concern for aspiration for which we have added and Zosyn. Patient's told his nurse that he has been drinking 5-6 24 ounce beers per day when it was thought that the patient had cut back or stopped drinking. Subcutaneous emphysema is improved today. He has had good urine output. He has extreme scrotal edema. Objective - Vital Signs Vital signs: Vital Signs Temp 99.4 F 11/04/16 08:00 Pulse 87 11/04/16 09:00 Resp 25 H 11/04/16 09:00 BP 112/49 11/04/16 09:00 Pulse Ox 97 11/04/16 09:00 Intake & Output 11/03/16 11/04/16 11/04/16 18:59 06:59 18:59 Intake Total 2461.244 1870.718 465.441 Output Total 1157 885 220 Balance 1304.244 985.718 245.441 Weight 103.8 kg 105.4 kg Intake: IV 1100 1200 300 Sodium Chloride 0.9% 1, 1100 1200 300 000 ml @ 100 mls/hr IV . Q10H ROSELIA Rx#:[id number] Intake, IV Titration 261.244 320.718 25.441 Amount Propofol 500 mg In Empty 261.244 320.718 25.441 Bag 1 bag @ Titrate IV . Q0M ROSELIA Rx#:[id number] Tube Feeding 680 350 140 Other 420 Output: Chest Tube Drainage 22 Chest Tube Right Lower 12 Mid-Axillary Chest Chest Tube Right Mid- 10 Axillary Chest Urine 1135 885 220 Other: Voiding Method Indwelling Catheter Indwelling Catheter Indwelling Catheter - Exam General appearance: no distress (Patient is currently intubated on the ventilator with sedation on board.) - EENT Eyes: EOMI, PERRLA, poor dentition ENT: other (ET tube in place and oral gastric tube in place.) Ears: bilateral: normal - Neck Neck: no rigidity, no stridor, no thyromegaly Carotids: bilateral: upstroke delayed - Respiratory Respiratory: bilateral: diminished, dullness, rales, rhonchi, wheezing, prolonged expiration (There is a right sided chest tube and minimal right subcutaneous emphysema) - Cardiovascular Rhythm: regular Heart sounds: normal: S1, S2 Abnormal Heart Sounds: systolic murmur, no rub, no S3 Gallop, no S4 Gallop, no click - Gastrointestinal General gastrointestinal: normal bowel sounds, soft, no splenomegaly, no tenderness, no umbilical hernia, no ventral hernia - Integumentary Integumentary: normal, normal turgor - Psychiatric Psychiatric: no A&O x's 3, no appropriate affect, no intact judgment & insight ( Patient is currently intubated and sedated on the ventilator.) - Labs CBC & Chem 7: 11/04/16 04:21 11/04/16 04:21 Labs: Abnormal Lab Results - Last 24 Hours (Table) 11/03/16 11/04/16 11/04/16 Range/Units 12:20 01:30 01:30 WBC 11.2 H (3.8-10.6) k/uL RBC 3.71 L (4.30-5.90) m/uL Hgb 11.9 L (13.0-17.5) gm/dL Hct 38.4 L (39.0-53.0) % MCV 103.3 H (80.0-100.0) fL MCHC (31.0-37.0) g/dL Lymphocytes # (1.0-4.8) k/uL ABG pO2 (83-108) mmHg ABG O2 Saturation (94-97) % Carbon Dioxide 31 H (22-30) mmol/L Glucose 123 H (74-99) mg/dL POC Glucose (mg/dL) 111 H (75-99) mg/dL Total Protein 5.7 L (6.3-8.2) g/dL Albumin 3.2 L (3.5-5.0) g/dL 11/04/16 11/04/16 11/04/16 Range/Units 04:21 04:21 04:54 WBC (3.8-10.6) k/uL RBC 3.83 L (4.30-5.90) m/uL Hgb 12.0 L (13.0-17.5) gm/dL Hct (39.0-53.0) % MCV 102.2 H (80.0-100.0) fL MCHC 30.7 L (31.0-37.0) g/dL Lymphocytes # 0.9 L (1.0-4.8) k/uL ABG pO2 149 H (83-108) mmHg ABG O2 Saturation 99.0 H (94-97) % Carbon Dioxide (22-30) mmol/L Glucose 112 H (74-99) mg/dL POC Glucose (mg/dL) (75-99) mg/dL Total Protein (6.3-8.2) g/dL Albumin (3.5-5.0) g/dL 11/04/16 Range/Units 09:07 WBC (3.8-10.6) k/uL RBC (4.30-5.90) m/uL Hgb (13.0-17.5) gm/dL Hct (39.0-53.0) % MCV (80.0-100.0) fL MCHC (31.0-37.0) g/dL Lymphocytes # (1.0-4.8) k/uL ABG pO2 (83-108) mmHg ABG O2 Saturation (94-97) % Carbon Dioxide (22-30) mmol/L Glucose (74-99) mg/dL POC Glucose (mg/dL) 130 H (75-99) mg/dL Total Protein (6.3-8.2) g/dL Albumin (3.5-5.0) g/dL Microbiology - Last 24 Hours (Table) 11/01/16 04:58 Gram Stain - Final Penis Wound Culture - Final 11/02/16 04:00 Gram Stain - Preliminary Sputum Sputum Culture - Preliminary Assessment and Plan Plan: 1. Right sided spontaneous pneumothorax with acute on chronic hypoxic respiratory failure requiring intubation and mechanical ventilation. Post chest tube placement in the ER, continue DuoNeb treatments, Pulmicort 0.5 mg position twice every day, pulmonary consultation, thoracic surgery consultation monitor the patient very closely. Now with second chest tube. 2. COPD exacerbation with chronic hypoxic respiratory failure and home O2 dependence. We will continue with nebulized treatment, oxygen support, monitor the blood gases. 3. Leukocytosis. Likely reactive monitor CBC the next 24 hours. 4. Degenerative disc disease. Stable at this time. 5. Severe emphysema with bulla . With recurrent pneumothorax. 6. Tobacco use and dependence. I believe the patient had quit smoking. 7. History of alcohol abuse. I believe the patient had cut back. 8. DVT prophylaxis. Heparin 5000 units subcutaneously every 12 hours. 9. GI prophylaxis. Start the patient on Protonix 40 mg orally once every day. 10. Possible delirium tremens due to alcohol abuse. Continue Ativan/CIWA protocol. 11. Patient is a full code. Discharge plan: Most likely return home Impression and plan of care have been directed as dictated by the signing physician. Dianelys Aden nurse practitioner acting as scribe for signing physician.
[2016-11-05 00:50] LABS: Glucose,Whole Blood 123 mg/dL (75-99)
[2016-11-05] MEDS: PROPOFOL 500 MG in EMPTY BAG 1 BAG IV SCH ×6 (01:07→21:48)
[2016-11-05] MEDS: HEPARIN SODIUM,PORCINE 5,000 UNIT/ML 1 ML VIAL SQ SCH ×3 (01:08→16:38)
[2016-11-05] MEDS: PIPERACILLIN-TAZOBACTAM 3.375 GM in DEXTROSE/WATER 1 50ML.BAG IVPB SCH ×3 (01:08→16:40)
[2016-11-05] MEDS: IPRATROPIUM-ALBUTEROL 3 ML NEB INHALATION SCH ×6 (03:33→23:43)
[2016-11-05] MEDS: MORPHINE SULFATE 2 MG/ML SYRINGE IVP PRN ×3 (03:38→18:20)
[2016-11-05] MEDS: LORazepam 2 MG/ML SYRINGE IV PRN ×2 (03:38→21:48)
[2016-11-05 05:35] LABS: ABG Base Excess 7.5 mmol/L; ABG HCO3 33 mmol/L (21-25); ABG PCO2 59 mmHg (35-45); ABG PH 7.37 (7.35-7.45); ABG PO2 105 mmHg (83-108); ABG TCO2 34 mmol/L (19-24)
[2016-11-05 06:11] LABS: Basophils % (A) 0 %; CH 31.2; CHCM 31.1; Eosinophils # (A) 0.3 k/uL (0-0.7); Eosinophils % (A) 5 %; HCT 34.8 % (39.0-53.0); HDW 2.25; HGB 11.2 gm/dL (13.0-17.5); Luc # (Auto) 0.16; Luc % (Auto) 2; Lymphocytes % (A) 15 %; MCH 32.4 pg (25.0-35.0); MCHC 32.2 g/dL (31.0-37.0); MCV 100.7 fL (80.0-100.0); Mean Platelet Volume 7.1; Monocytes # (A) 0.6 k/uL (0-1.0); Monocytes % (A) 9 %; Neutrophils # (A) 4.7 k/uL (1.3-7.7); Neutrophils % (A) 69 %; RBC 3.45 m/uL (4.30-5.90); RDW 13.4 % (11.5-15.5); WBC 6.8 k/uL (3.8-10.6)
[2016-11-05 06:19] LABS: Partial Thromboplastin Time 25.8 sec (22.0-30.0); Prothrombin Time 9.9 sec (9.0-12.0)
[2016-11-05 06:32] LABS: Anion Gap 4 mmol/L; Blood Urea Nitrogen 15 mg/dL (9-20); Calcium 8.9 mg/dL (8.4-10.2); Carbon Dioxide 35 mmol/L (22-30); Chloride 104 mmol/L (98-107); Glucose 122 mg/dL (74-99); Magnesium 2.1 mg/dL (1.6-2.3); Non-African American GFR(MDRD) >60 (>60 ml/min/1.73 sqM); Phosphorous 4.2 mg/dL (2.5-4.5); Potassium 4.3 mmol/L (3.5-5.1); Sodium 143 mmol/L (137-145)
[2016-11-05] MEDS ORDERED: PROPOFOL 50 ML IV ONE (07:31)
--- NOTE | 2016-11-05 07:45 | XR ---
EXAMINATION TYPE: XR chest 1V portable DATE OF EXAM: 11/05/2016 7:09 AM Comparison: 11/04/2016 Clinical History: 61-year-old male pneumothorax Findings: ET tube is satisfactory. NG tube courses below the diaphragm. One of the patient's right-sided chest tubes has been removed in the interval. There is a trace later al upper lung pneumothorax that appears smaller as compared to prior exam. Diffuse interstitial and v ascular prominence and small left effusion particularly on the left is similar. Bullous emphysema. He art is upper limits of normal in size. Impression: 1. One of the patient's right-sided chest tubes has been removed. There is a trace right-sided pneumo thorax, smaller as compared to prior exam. 2. Correlate for COPD with superimposed mild to moderate CHF. 3. Continued small left pleural effusion with adjacent atelectasis and/or consolidation.
[2016-11-05] MEDS: PANTOPRAZOLE 40 MG/10 ML VIAL IVP SCH (09:14)
[2016-11-05] MEDS: SODIUM CHLORIDE 0.9% 1,000 ML IV SCH ×2 (09:17→16:38)
[2016-11-05] MEDS: CHLORHEXIDINE GLUCONATE 15 ML CUP MUCOUS MEM SCH ×2 (09:18→21:49)
[2016-11-05] MEDS: LEVOFLOXACIN 500MG-D5W PMX 500 MG in DEXTROSE/WATER 1 100ML.BAG IVPB SCH (10:29)
--- NOTE | 2016-11-05 10:35 | CONS ---
DATE OF CONSULTATION: 11/05/2016 REASON FOR CONSULTATION: Scrotal edema. Patient is a 61-year-old male with a history of COPD who was admitted as a transfer from the [facility] emergency room for treatment of an acute right pneumothorax associated with shortness of breath. The patient rapidly developed respiratory failure and required intubation. He has been treated with an upper and lower right chest tubes but remains on a ventilator at this time. I was asked to see the patient due to scrotal swelling which, according to his , appeared to begin relatively suddenly yesterday. The patient is intubated and sedated and unable to give any history. History is from a conversation with the patient's and his nurse. The patient has a history of benign hypertension and COPD. He had 2 spontaneous pneumothoraces last year and has been treated Dr. Mejia. 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 Shaw last year. According to the patient's , he has had no difficulty voiding since then. Current medications include: 1. DuoNeb. 2. Pulmicort. 3. Levaquin. 4. Ativan. 5. Protonix. 6. Zosyn. Review of systems was unobtainable. Physical exam reveals a 61-year-old male who is intubated and sedated. ABDOMEN: Soft. No subcutaneous crepitance noted. GENITALIA: A Pelaez catheter is in place and is draining clear urine. Scrotal is swollen and tympanitic, consistent with air within the scrotum. There is minimal to mild edema of the scrotal skin. Neither testicle is well palpated due to the distention of the scrotum. There is mild penile edema. EXTREMITIES: Mild bilateral pre-tibial edema. Laboratory evaluation from today included a BUN of 15, creatinine 0.7. Total protein and albumin on 11/01 were 7.5 and 4.3; total protein and albumin yesterday were 5.7 and 3.2. IMPRESSION: Scrotal swelling. This is probably not scrotal edema but mainly subcutaneous emphysema related to the patient's spontaneous pneumothorax. This is an unusual complication of pneumothorax, but it can occur if air tracks along the bronchus and into the subcutaneous tissue. The subcutaneous tissue of the neck and chest then communicates with the abdomen and scrotum. RECOMMENDATION: No specific treatment is necessary at this time. If the patient is uncomfortable once he is extubated, then needle aspiration of the air in the scrotum could be performed. If this is not performed, the air will spontaneously be absorbed with time. Thank you for allowing me to participate in the care of this gentleman. FRED
[2016-11-05] MEDS: BUDESONIDE 0.5 MG/2 ML NEBU INHALATION SCH ×2 (11:56→19:59)
--- NOTE | 2016-11-05 12:10 | PN ---
INTERVAL HISTORY: Patient continues to be hemodynamically stable. No major events reported overnight. CO2 was found this morning to be elevated at 56. Patient's ventricular rate was increased to 24. Patient seems to be comfortable. and son at the bedside had multiple concerns and questions, all addressed at the bedside. PHYSICAL EXAMINATION: VITAL SIGNS: 98.5, 87, 25, 121/59. Saturation is 100% on current full vent support. LUNGS: Coarse sounds bilaterally. HEART: Normal S1, S2. ABDOMEN: Soft. No tenderness. Positive bowel sounds in all 4 quadrants. LOWER EXTREMITIES: Trace edema bilaterally. PSYCH: Sedated. IMAGING AND LABS: Hemoglobin stable at 11.2. Normal CBC otherwise. ABG showed CO2 of 59, pO2 of 105. Chemistry was within acceptable range, glucose within acceptable range. ASSESSMENT AND PLAN: 1. Acute respiratory failure with full vent support. 2. Right-sided spontaneous pneumothorax. 3. Chronic obstructive pulmonary disease with exacerbation. 4. Degenerative disc disease. 5. Tobacco dependency. 6. History of alcohol abuse. 7. Encephalopathy, multifactorial. PLAN: Will continue with full vent support. Wean off as tolerated. Will continue with serial x-rays while patient is having chest tube. Chest x-ray this morning reviewed and family updated. We will continue with supportive care. We will monitor vital signs closely and follow up with critical care recommendations. Prognosis is guarded.
[2016-11-05] MEDS: THIAMINE 100 MG TAB PO SCH (12:25)
[2016-11-05] MEDS: MULTIVITAMINS, THERA LIQUID 237 ML BOTTLE PO SCH (12:25)
[2016-11-05 12:26] LABS: Glucose,Whole Blood 104 mg/dL (75-99)
--- NOTE | 2016-11-05 13:08 | P.PN ---
Subjective Principal diagnosis: Acute on chronic hypoxic respiratory failure Patient seen and examined in the ICU with nursing staff and family at bedside. Continues breathing trials attempted this morning. The patient failed due to increased respiratory rate and tachycardia. Sedation was held and the patient did not wake up enough to follow commands. Given the patient's distress on the ventilator he was placed back on propofol and full ventilator support. The family is updated and aware of the plan. Objective - Vital Signs Vital signs: Vital Signs Temp 97.9 F 11/05/16 12:00 Pulse 105 H 11/05/16 12:00 Resp 25 H 11/05/16 12:00 BP 163/69 11/05/16 12:00 Pulse Ox 96 11/05/16 12:00 Intake & Output 11/04/16 11/05/16 11/05/16 18:59 06:59 18:59 Intake Total 2079.550 5376 1010.0 Output Total 1110 1250 610 Balance 958.102 2622 400.0 Weight 105.4 kg 110.2 kg Intake: IV 1200 1200 600 Sodium Chloride 0.9% 1, 1200 1200 600 000 ml @ 100 mls/hr IV . Q10H [facility] Rx#:[id number] Intake, IV Titration 225.324 200 200.0 Amount Levofloxacin 500Mg-D5w 100 Pmx 500 mg In Dextrose/ Water 1 100ml.bag @ 100 mls/hr IVPB Q24HR [facility] Rx# :[id number] Piperacillin-Tazobactam 3 50.0 .375 gm In Dextrose/Water 1 50ml.bag @ 12.5 mls/hr IVPB Q8HR [facility] Rx#: [id number] Propofol 500 mg In Empty 225.324 200 50 Bag 1 bag @ Titrate IV . Q0M [facility] Rx#:[id number] Tube Feeding 350 1120 210 Output: Chest Tube Drainage 0 Chest Tube Right Lower 0 Mid-Axillary Chest Urine 1110 1250 610 Other: Voiding Method Indwelling Catheter Indwelling Catheter Indwelling Catheter - Exam Gen.: Patient is sedated on ventilator Cardiovascular: Regular rate and rhythm, S1/S2 Lungs: Diminished breath sounds bilaterally with scattered wheezing, right chest tube in place Abdomen: Soft nontender nondistended positive bowel sounds Extremities: No edema - Labs CBC & Chem 7: 11/05/16 05:45 11/05/16 05:45 Labs: Abnormal Lab Results - Last 24 Hours (Table) 11/05/16 11/05/16 11/05/16 Range/Units 00:49 05:02 05:45 RBC 3.45 L (4.30-5.90) m/uL Hgb 11.2 L (13.0-17.5) gm/dL Hct 34.8 L (39.0-53.0) % MCV 100.7 H (80.0-100.0) fL ABG pCO2 59 H (35-45) mmHg ABG HCO3 33 H (21-25) mmol/L ABG Total CO2 34 H (19-24) mmol/L ABG O2 Saturation 98.0 H (94-97) % Carbon Dioxide (22-30) mmol/L Glucose (74-99) mg/dL POC Glucose (mg/dL) 123 H (75-99) mg/dL 11/05/16 11/05/16 Range/Units 05:45 12:24 RBC (4.30-5.90) m/uL Hgb (13.0-17.5) gm/dL Hct (39.0-53.0) % MCV (80.0-100.0) fL ABG pCO2 (35-45) mmHg ABG HCO3 (21-25) mmol/L ABG Total CO2 (19-24) mmol/L ABG O2 Saturation (94-97) % Carbon Dioxide 35 H (22-30) mmol/L Glucose 122 H (74-99) mg/dL POC Glucose (mg/dL) 104 H (75-99) mg/dL Microbiology - Last 24 Hours (Table) 11/02/16 04:00 Gram Stain - Final Sputum Sputum Culture - Final Assessment and Plan Plan: Acute on chronic hypoxic and hypercapnic respiratory failure Right spontaneous pneumothorax, CT in place Bullous emphysema History of tobacco abuse Alcohol abuse Hematuria Acute exacerbation of COPD Continue full ventilator support, ABG reviewed, continue current settings Patient was unable to tolerate sedation holiday and SBT this morning, will reassess tomorrow morning AM ABG Serial chest x-rays Chest tubes per thoracic surgery Antibiotics: Levaquin, Zosyn Sputum, blood, urine cultures Bronchodilators and Pulmicort Continue propofol and morphine/ativan pushes as needed GI and DVT prophylaxis Continue tube feeding, consult dietitian Tylenol PRN fever Sedation holiday and SBT in AM
[2016-11-05 19:01] LABS: Glucose,Whole Blood 108 mg/dL (75-99)
[2016-11-06 00:15] LABS: Glucose,Whole Blood 106 mg/dL (75-99)
[2016-11-06] MEDS: PIPERACILLIN-TAZOBACTAM 3.375 GM in DEXTROSE/WATER 1 50ML.BAG IVPB SCH ×3 (00:27→16:35)
[2016-11-06] MEDS: HEPARIN SODIUM,PORCINE 5,000 UNIT/ML 1 ML VIAL SQ SCH ×3 (01:06→16:36)
[2016-11-06] MEDS: LORazepam 2 MG/ML SYRINGE IV PRN (01:17)
[2016-11-06] MEDS: MORPHINE SULFATE 2 MG/ML SYRINGE IVP PRN ×2 (01:17→05:50)
[2016-11-06] MEDS: IPRATROPIUM-ALBUTEROL 3 ML NEB INHALATION SCH ×6 (03:24→23:32)
[2016-11-06 05:03] LABS: Basophils % (A) 1 %; CH 30.8; CHCM 30.1; Eosinophils # (A) 0.4 k/uL (0-0.7); Eosinophils % (A) 6 %; HCT 36.8 % (39.0-53.0); HGB 11.6 gm/dL (13.0-17.5); Hypochromasia Slight; Luc # (Auto) 0.22; Luc % (Auto) 3; Lymphocytes # (A) 0.9 k/uL (1.0-4.8); Lymphocytes % (A) 12 %; MCH 32.3 pg (25.0-35.0); MCHC 31.5 g/dL (31.0-37.0); MCV 102.6 fL (80.0-100.0); Macrocytosis Slight; Mean Platelet Volume 6.9; Monocytes # (A) 0.7 k/uL (0-1.0); Monocytes % (A) 9 %; Neutrophils # (A) 5.2 k/uL (1.3-7.7); Neutrophils % (A) 70 %; RBC 3.58 m/uL (4.30-5.90); RDW 13.6 % (11.5-15.5); WBC 7.5 k/uL (3.8-10.6); WBC (Perox) 7.53
[2016-11-06 05:12] LABS: Partial Thromboplastin Time 25.8 sec (22.0-30.0); Prothrombin Time 10.2 sec (9.0-12.0)
[2016-11-06 05:15] LABS: Anion Gap 7 mmol/L; Blood Urea Nitrogen 18 mg/dL (9-20); Carbon Dioxide 32 mmol/L (22-30); Chloride 105 mmol/L (98-107); Glucose 131 mg/dL (74-99); Magnesium 2.3 mg/dL (1.6-2.3); Non-African American GFR(MDRD) >60 (>60 ml/min/1.73 sqM); Phosphorous 3.6 mg/dL (2.5-4.5); Potassium 4.3 mmol/L (3.5-5.1); Sodium 144 mmol/L (137-145)
[2016-11-06] MEDS: PROPOFOL 500 MG in EMPTY BAG 1 BAG IV SCH ×8 (05:50→22:00)
[2016-11-06] MEDS: SODIUM CHLORIDE 0.9% 1,000 ML IV SCH ×2 (05:51→12:30)
[2016-11-06 05:52] LABS: ABG HCO3 33 mmol/L (21-25); ABG PCO2 59 mmHg (35-45); ABG PH 7.37 (7.35-7.45); ABG PO2 91 mmHg (83-108); ABG TCO2 35 mmol/L (19-24)
[2016-11-06 06:03] LABS: Glucose,Whole Blood 109 mg/dL (75-99)
[2016-11-06] MEDS: BUDESONIDE 0.5 MG/2 ML NEBU INHALATION SCH ×2 (07:52→20:41)
--- NOTE | 2016-11-06 09:25 | XR ---
EXAMINATION TYPE: XR chest 1V portable DATE OF EXAM: 11/06/2016 6:53 AM COMPARISON: 11/05/2016 INDICATION: Pneumothorax TECHNIQUE: Single frontal view of the chest is obtained. FINDINGS: The heart size is normal. The pulmonary vasculature is normal. Minimal left basilar fluid collection is present. Some mild increased lung markings at the lung bases . Right-sided chest tube is present Very minimal residual pneumothorax is along the superior lateral right chest similar to prior study. IMPRESSION: 1. Small right sided pneumothorax. 2. Mild bibasilar infiltrates. 3. Small left pleural effusion.
[2016-11-06] MEDS: LEVOFLOXACIN 500MG-D5W PMX 500 MG in DEXTROSE/WATER 1 100ML.BAG IVPB SCH (09:55)
[2016-11-06] MEDS: PANTOPRAZOLE 40 MG/10 ML VIAL IVP SCH (09:55)
[2016-11-06] MEDS: CHLORHEXIDINE GLUCONATE 15 ML CUP MUCOUS MEM SCH ×2 (09:55→20:46)
[2016-11-06] MEDS ORDERED: FUROSEMIDE 10 MG/ML 2 ML VIAL IV ONE (09:56)
--- NOTE | 2016-11-06 11:04 | PN ---
INTERVAL HISTORY: Patient continued to be on the same vent support. No extubation happened yesterday due to fast breathing rate and being unresponsive. This morning patient opens his eyes and blinks to family when asked to say yes. The patient's family at the bedside, have multiple concerns and questions. All addressed at the bedside. PHYSICAL EXAMINATION: VITAL SIGNS: Reviewed and stable. LUNGS: Diminished bilaterally. HEART: Normal S1, S2. ABDOMEN: Soft, no tenderness, positive bowel sounds in all 4 quadrants. EXTREMITIES: Lower extremity and upper extremities positive for edema. Pelaez catheter positive for clear urine in place. Tube feeding on hold for possible extubation this morning. IMAGING AND LABS: CBC showed stable findings. ABG showed pCO2 of 59, oxygen saturation of 97.0. Chemistry showed normal findings. Glucose is stable. Chest x-ray showed persistent pneumothorax on the right lung, stable from prior evaluation despite ongoing suction with chest tube. ASSESSMENT AND PLAN: 1. Acute respiratory failure. Continue with full vent support. 2. Right-sided spontaneous pneumothorax status post chest tube placement. 3. Chronic obstructive pulmonary disease with exacerbation. 4. Degenerative disc disease. 5. Tobacco dependency. 6. History of alcohol abuse. 7. Encephalopathy, multifactorial. PLAN: 1. I would like to continue with current vent setting, wean patient off as tolerated, consider extubation per critical care recommendation. I would like to continue with the chest tube to suction and follow up with cardiothoracic surgery regarding management for the chest tube. Chest x-ray showing persistent pneumothorax and will follow up with their recommendation regarding placing the chest tube to water seal. 2. Would like to continue appropriate pulmonary hygiene and supportive treatment. Prognosis remains guarded and plan discussed with the family who are aware of the poor prognosis.
[2016-11-06] MEDS: THIAMINE 100 MG TAB PO SCH (12:29)
[2016-11-06] MEDS: MULTIVITAMINS, THERA LIQUID 237 ML BOTTLE PO SCH (12:29)
[2016-11-06 12:40] LABS: Glucose,Whole Blood 115 mg/dL (75-99)
--- NOTE | 2016-11-06 16:00 | P.PN ---
Subjective Principal diagnosis: Acute on chronic hypoxic respiratory failure Patient seen and examined in the ICU with nursing staff and family at bedside. Spontaneous breathing trial attempted again this morning. Patient was not following commands and became tachycardic into. Patient had apparently received Ativan overnight. The Ativan will be discontinued and propofol will be used for sedation. Hopeful for extubation in the next 24-48 hours. Objective - Vital Signs Vital signs: Vital Signs Temp 98.4 F 11/06/16 12:00 Pulse 97 11/06/16 15:00 Resp 28 H 11/06/16 15:00 BP 98/47 11/06/16 15:00 Pulse Ox 97 11/06/16 15:00 Intake & Output 11/05/16 11/06/16 11/06/16 18:59 06:59 18:59 Intake Total 1987.5 2350.657 1862.993 Output Total 1410 1235 2375 Balance 577.5 1115.657 -512.007 Weight 110.9 kg Intake: IV 900 1100 900 Sodium Chloride 0.9% 1, 900 1100 900 000 ml @ 100 mls/hr IV . Q10H [facility] Rx#:[id number] Intake, IV Titration 287.5 130.657 202.993 Amount Levofloxacin 500Mg-D5w 100 100 Pmx 500 mg In Dextrose/ Water 1 100ml.bag @ 100 mls/hr IVPB Q24HR [facility] Rx# :[id number] Piperacillin-Tazobactam 3 87.5 12.5 50.0 .375 gm In Dextrose/Water 1 50ml.bag @ 12.5 mls/hr IVPB Q8HR [facility] Rx#: [id number] Propofol 500 mg In Empty 100 118.157 52.993 Bag 1 bag @ Titrate IV . Q0M [facility] Rx#:[id number] Tube Feeding 770 1120 700 Other 30 60 Output: Chest Tube Drainage 0 20 0 Chest Tube Right Lower 0 20 0 Mid-Axillary Chest Urine 1410 1215 2375 Other: Voiding Method Indwelling Catheter Indwelling Catheter Indwelling Catheter - Exam Gen.: Patient is sedated on ventilator Cardiovascular: Regular rate and rhythm, S1/S2 Lungs: Diminished breath sounds bilaterally with scattered wheezing, right chest tube in place Abdomen: Soft nontender nondistended positive bowel sounds Extremities: No edema - Labs CBC & Chem 7: 11/06/16 04:39 11/06/16 04:39 Labs: Abnormal Lab Results - Last 24 Hours (Table) 11/05/16 11/06/16 11/06/16 Range/Units 18:59 00:14 04:39 RBC 3.58 L (4.30-5.90) m/uL Hgb 11.6 L (13.0-17.5) gm/dL Hct 36.8 L (39.0-53.0) % MCV 102.6 H (80.0-100.0) fL Lymphocytes # 0.9 L (1.0-4.8) k/uL ABG pCO2 (35-45) mmHg ABG HCO3 (21-25) mmol/L ABG Total CO2 (19-24) mmol/L Carbon Dioxide (22-30) mmol/L Creatinine (0.66-1.25) mg/dL Glucose (74-99) mg/dL POC Glucose (mg/dL) 108 H 106 H (75-99) mg/dL 11/06/16 11/06/16 11/06/16 Range/Units 04:39 05:10 06:01 RBC (4.30-5.90) m/uL Hgb (13.0-17.5) gm/dL Hct (39.0-53.0) % MCV (80.0-100.0) fL Lymphocytes # (1.0-4.8) k/uL ABG pCO2 59 H (35-45) mmHg ABG HCO3 33 H (21-25) mmol/L ABG Total CO2 35 H (19-24) mmol/L Carbon Dioxide 32 H (22-30) mmol/L Creatinine 0.60 L (0.66-1.25) mg/dL Glucose 131 H (74-99) mg/dL POC Glucose (mg/dL) 109 H (75-99) mg/dL 11/06/16 Range/Units 12:39 RBC (4.30-5.90) m/uL Hgb (13.0-17.5) gm/dL Hct (39.0-53.0) % MCV (80.0-100.0) fL Lymphocytes # (1.0-4.8) k/uL ABG pCO2 (35-45) mmHg ABG HCO3 (21-25) mmol/L ABG Total CO2 (19-24) mmol/L Carbon Dioxide (22-30) mmol/L Creatinine (0.66-1.25) mg/dL Glucose (74-99) mg/dL POC Glucose (mg/dL) 115 H (75-99) mg/dL Assessment and Plan Plan: Acute on chronic hypoxic and hypercapnic respiratory failure Right spontaneous pneumothorax, CT in place Bullous emphysema History of tobacco abuse Alcohol abuse Hematuria Acute exacerbation of COPD Continue full ventilator support, ABG reviewed, continue current settings Patient was unable to tolerate sedation holiday and SBT this morning, will reassess tomorrow morning AM ABG Serial chest x-rays Chest tubes per thoracic surgery Antibiotics: Levaquin, Zosyn Sputum, blood, urine cultures Bronchodilators and Pulmicort Continue propofol GI and DVT prophylaxis Continue tube feeding, consult dietitian Tylenol PRN fever Sedation holiday and SBT in AM, Discontinue Ativan and Morphin.
[2016-11-06 17:50] LABS: Glucose,Whole Blood 133 mg/dL (75-99)
[2016-11-07 00:01] LABS: Glucose,Whole Blood 106 mg/dL (75-99)
[2016-11-07] MEDS: PIPERACILLIN-TAZOBACTAM 3.375 GM in DEXTROSE/WATER 1 50ML.BAG IVPB SCH ×3 (00:15→16:56)
[2016-11-07] MEDS: SODIUM CHLORIDE 0.9% 1,000 ML IV SCH ×3 (00:15→23:44)
[2016-11-07] MEDS: HEPARIN SODIUM,PORCINE 5,000 UNIT/ML 1 ML VIAL SQ SCH ×4 (00:15→23:44)
[2016-11-07] MEDS: IPRATROPIUM-ALBUTEROL 3 ML NEB INHALATION SCH ×6 (03:32→23:45)
[2016-11-07 05:45] LABS: Basophils % (A) 0 %; CH 31.4; CHCM 30.7; Eosinophils # (A) 0.4 k/uL (0-0.7); Eosinophils % (A) 6 %; HCT 35.5 % (39.0-53.0); HDW 2.03; HGB 11.2 gm/dL (13.0-17.5); Hypochromasia Slight; Luc # (Auto) 0.21; Luc % (Auto) 3; Lymphocytes # (A) 0.7 k/uL (1.0-4.8); Lymphocytes % (A) 9 %; MCH 32.2 pg (25.0-35.0); MCHC 31.5 g/dL (31.0-37.0); MCV 102.5 fL (80.0-100.0); Macrocytosis Slight; Mean Platelet Volume 7.2; Monocytes # (A) 0.7 k/uL (0-1.0); Monocytes % (A) 9 %; Neutrophils # (A) 5.6 k/uL (1.3-7.7); Neutrophils % (A) 73 %; RBC 3.47 m/uL (4.30-5.90); RDW 13.5 % (11.5-15.5); WBC 7.7 k/uL (3.8-10.6); WBC (Perox) 7.92
[2016-11-07 05:50] LABS: ABG HCO3 31 mmol/L (21-25); ABG PCO2 53 mmHg (35-45); ABG PH 7.38 (7.35-7.45); ABG PO2 93 mmHg (83-108); ABG TCO2 33 mmol/L (19-24)
[2016-11-07 06:14] LABS: Anion Gap 5 mmol/L; Blood Urea Nitrogen 17 mg/dL (9-20); Calcium 9.3 mg/dL (8.4-10.2); Carbon Dioxide 32 mmol/L (22-30); Chloride 106 mmol/L (98-107); Glucose 122 mg/dL (74-99); Non-African American GFR(MDRD) >60 (>60 ml/min/1.73 sqM); Potassium 4.1 mmol/L (3.5-5.1); Sodium 143 mmol/L (137-145)
[2016-11-07] MEDS: PROPOFOL 500 MG in EMPTY BAG 1 BAG IV SCH ×10 (07:08→23:44)
--- NOTE | 2016-11-07 07:16 | XR ---
EXAMINATION TYPE: XR chest 1V DATE OF EXAM: 11/07/2016 7:04 AM HISTORY: pneumothorax. REFERENCE: Previous study dated 11/06/2016. FINDINGS: There is a right pleural drain in place. The patient's ET tube and NG tube remain in place, unchanged in appearance. There continues to be a small right-sided pneumothorax. There is subcutaneous emphysema the right. Th ere is left basilar airspace disease. There is a small left-sided effusion. The overall appearance is unchanged from previous. IMPRESSION: 1. SMALL, RESIDUAL RIGHT-SIDED PNEUMOTHORAX. 2. LEFT BASILAR AIRSPACE DISEASE. 3. SMALL LEFT-SIDED EFFUSION.
[2016-11-07] MEDS: BUDESONIDE 0.5 MG/2 ML NEBU INHALATION SCH ×2 (07:44→20:19)
[2016-11-07] MEDS: CHLORHEXIDINE GLUCONATE 15 ML CUP MUCOUS MEM SCH ×2 (08:17→23:44)
[2016-11-07] MEDS: LEVOFLOXACIN 500MG-D5W PMX 500 MG in DEXTROSE/WATER 1 100ML.BAG IVPB SCH (08:17)
[2016-11-07] MEDS: PANTOPRAZOLE 40 MG/10 ML VIAL IVP SCH (08:18)
[2016-11-07] MEDS ORDERED: FUROSEMIDE 10 MG/ML 4 ML VIAL IV STA (11:04)
[2016-11-07 11:47] LABS: Glucose,Whole Blood 129 mg/dL (75-99)
[2016-11-07] MEDS: ALBUMIN HUMAN 25% 50 ML in EMPTY BAG 1 BAG IVPB SCH ×2 (11:53→12:54)
[2016-11-07] MEDS: MULTIVITAMINS, THERA LIQUID 237 ML BOTTLE PO SCH ×2 (12:41→14:22)
--- NOTE | 2016-11-07 14:03 | P.PN ---
Subjective Principal diagnosis: Acute hypoxic respiratory failure Patient seen and examined in the ICU with nursing staff at bedside. Patient did not tolerate sedation holiday or SBT this morning. Patient has been hemodynamically stable. His urine output has been adequate. Objective - Vital Signs Vital signs: Vital Signs Temp 98.4 F 11/07/16 08:00 Pulse 92 11/07/16 12:11 Resp 28 H 11/07/16 10:00 BP 120/61 11/07/16 10:00 Pulse Ox 95 11/07/16 10:00 Intake & Output 11/06/16 11/07/16 11/07/16 18:59 06:59 18:59 Intake Total 2557.849 2429.638 985.587 Output Total 2950 1530 485 Balance -392.151 899.638 500.587 Weight 109.2 kg Intake: IV 1200 1200 400 Sodium Chloride 0.9% 1, 1200 1200 400 000 ml @ 100 mls/hr IV . Q10H [facility] Rx#:[id number] Intake, IV Titration 287.849 159.638 275.587 Amount Levofloxacin 500Mg-D5w 100 100 Pmx 500 mg In Dextrose/ Water 1 100ml.bag @ 100 mls/hr IVPB Q24HR [facility] Rx# :[id number] Piperacillin-Tazobactam 3 87.5 12.5 25.0 .375 gm In Dextrose/Water 1 50ml.bag @ 12.5 mls/hr IVPB Q8HR [facility] Rx#: [id number] Propofol 500 mg In Empty 100.349 147.138 150.587 Bag 1 bag @ Titrate IV . Q0M [facility] Rx#:[id number] Tube Feeding 980 980 280 Other 90 90 30 Output: Chest Tube Drainage 0 30 Chest Tube Right Lower 0 30 Mid-Axillary Chest Urine 2950 1500 485 Other: Voiding Method Indwelling Catheter Indwelling Catheter Indwelling Catheter - Exam Gen.: Patient is sedated on ventilator Cardiovascular: Regular rate and rhythm, S1/S2 Lungs: Diminished breath sounds bilaterally with scattered wheezing, right chest tube in place Abdomen: Soft nontender nondistended positive bowel sounds Extremities: No edema - Labs CBC & Chem 7: 11/07/16 05:12 11/07/16 05:12 Labs: Abnormal Lab Results - Last 24 Hours (Table) 11/06/16 11/06/16 11/07/16 Range/Units 17:48 23:59 05:12 RBC 3.47 L (4.30-5.90) m/uL Hgb 11.2 L (13.0-17.5) gm/dL Hct 35.5 L (39.0-53.0) % MCV 102.5 H (80.0-100.0) fL Lymphocytes # 0.7 L (1.0-4.8) k/uL ABG pCO2 (35-45) mmHg ABG HCO3 (21-25) mmol/L ABG Total CO2 (19-24) mmol/L Carbon Dioxide (22-30) mmol/L Creatinine (0.66-1.25) mg/dL Glucose (74-99) mg/dL POC Glucose (mg/dL) 133 H 106 H (75-99) mg/dL 11/07/16 11/07/16 11/07/16 Range/Units 05:12 05:20 11:46 RBC (4.30-5.90) m/uL Hgb (13.0-17.5) gm/dL Hct (39.0-53.0) % MCV (80.0-100.0) fL Lymphocytes # (1.0-4.8) k/uL ABG pCO2 53 H (35-45) mmHg ABG HCO3 31 H (21-25) mmol/L ABG Total CO2 33 H (19-24) mmol/L Carbon Dioxide 32 H (22-30) mmol/L Creatinine 0.60 L (0.66-1.25) mg/dL Glucose 122 H (74-99) mg/dL POC Glucose (mg/dL) 129 H (75-99) mg/dL Assessment and Plan Plan: Acute on chronic hypoxic and hypercapnic respiratory failure Right spontaneous pneumothorax, CT in place Bullous emphysema History of tobacco abuse Alcohol abuse Hematuria Acute exacerbation of COPD Continue full ventilator support, ABG reviewed, continue current settings Patient was unable to tolerate sedation holiday and SBT this morning, will reassess tomorrow morning AM ABG Serial chest x-rays Chest tubes per thoracic surgery Antibiotics: Levaquin, Zosyn Sputum, blood, urine cultures Bronchodilators and Pulmicort Continue propofol GI and DVT prophylaxis Continue tube feeding, consult dietitian Tylenol PRN fever Sedation holiday and SBT in AM, Discontinue Ativan and Morphin. Trial Precedex and wean Propofol
[2016-11-07] MEDS: THIAMINE 100 MG TAB PO SCH (14:22)
[2016-11-07] MEDS ORDERED: DEXMEDETOMIDINE 200 MCG in SODIUM CHLORIDE 0.9% 100 ML IV SCH (14:30)
--- NOTE | 2016-11-07 14:37 | P.PN ---
Subjective Principal diagnosis: Right-sided pneumothorax, POD #2 placement of superior right-sided pleural chest tube. POD #1 placement of inferior right-sided pleural chest tube. This patient continues to be sedated on mechanical ventilation. Right superior chest tube discontinued yesterday. Inferior chest tube remains. Objective - Vital Signs Vital signs: Vital Signs Temp 98.4 F 11/07/16 08:00 Pulse 92 11/07/16 12:11 Resp 28 H 11/07/16 10:00 BP 120/61 11/07/16 10:00 Pulse Ox 95 11/07/16 10:00 Intake & Output 11/06/16 11/07/16 11/07/16 18:59 06:59 18:59 Intake Total 2557.849 2429.638 985.587 Output Total 2950 1530 485 Balance -392.151 899.638 500.587 Weight 109.2 kg Intake: IV 1200 1200 400 Sodium Chloride 0.9% 1, 1200 1200 400 000 ml @ 100 mls/hr IV . Q10H [facility] Rx#:[id number] Intake, IV Titration 287.849 159.638 275.587 Amount Levofloxacin 500Mg-D5w 100 100 Pmx 500 mg In Dextrose/ Water 1 100ml.bag @ 100 mls/hr IVPB Q24HR [facility] Rx# :[id number] Piperacillin-Tazobactam 3 87.5 12.5 25.0 .375 gm In Dextrose/Water 1 50ml.bag @ 12.5 mls/hr IVPB Q8HR [facility] Rx#: [id number] Propofol 500 mg In Empty 100.349 147.138 150.587 Bag 1 bag @ Titrate IV . Q0M [facility] Rx#:[id number] Tube Feeding 980 980 280 Other 90 90 30 Output: Chest Tube Drainage 0 30 Chest Tube Right Lower 0 30 Mid-Axillary Chest Urine 2950 1500 485 Other: Voiding Method Indwelling Catheter Indwelling Catheter Indwelling Catheter - Constitutional General appearance: Present: no acute distress - Respiratory Details: Lungs sounds very diminished bilaterally. Respirations even, nonlabored on mechanical ventilation. Current ventilator settings FiO2 40%, tidal volume 500 , respiratory rate 25, PEEP 5. - Cardiovascular Details: S1, S2 present. Regular rate and rhythm, normal sinus rhythm on telemetry. - Gastrointestinal Gastrointestinal Comment(s): Abdomen soft, nontender, nondistended. Active bowel sounds 4 quadrants. Currently receiving tube feedings through OG tube. - Genitourinary Genitourinary Comment(s): Pelaez present draining clear, yellow urine. - Neurologic Neurologic Comment(s): Currently sedated on mechanical ventilation. - Allied health notes Allied health notes reviewed: nursing - Labs CBC & Chem 7: 11/07/16 05:12 11/07/16 05:12 Labs: Abnormal Lab Results - Last 24 Hours (Table) 11/06/16 11/06/16 11/07/16 Range/Units 17:48 23:59 05:12 RBC 3.47 L (4.30-5.90) m/uL Hgb 11.2 L (13.0-17.5) gm/dL Hct 35.5 L (39.0-53.0) % MCV 102.5 H (80.0-100.0) fL Lymphocytes # 0.7 L (1.0-4.8) k/uL ABG pCO2 (35-45) mmHg ABG HCO3 (21-25) mmol/L ABG Total CO2 (19-24) mmol/L Carbon Dioxide (22-30) mmol/L Creatinine (0.66-1.25) mg/dL Glucose (74-99) mg/dL POC Glucose (mg/dL) 133 H 106 H (75-99) mg/dL 11/07/16 11/07/16 11/07/16 Range/Units 05:12 05:20 11:46 RBC (4.30-5.90) m/uL Hgb (13.0-17.5) gm/dL Hct (39.0-53.0) % MCV (80.0-100.0) fL Lymphocytes # (1.0-4.8) k/uL ABG pCO2 53 H (35-45) mmHg ABG HCO3 31 H (21-25) mmol/L ABG Total CO2 33 H (19-24) mmol/L Carbon Dioxide 32 H (22-30) mmol/L Creatinine 0.60 L (0.66-1.25) mg/dL Glucose 122 H (74-99) mg/dL POC Glucose (mg/dL) 129 H (75-99) mg/dL - Imaging and Cardiology Chest x-ray: image reviewed Assessment and Plan (1) Pneumothorax, right Status: Acute (2) COPD (chronic obstructive pulmonary disease) Status: Acute (3) Respiratory failure Status: Acute Plan: 1. Wean O2 as tolerated. Ventilator management per pulmonology. 2. Maintain chest tube to wall suction. 3. Daily chest x-rays. 4. Other medical comorbidities to be managed per primary service. 5. Will continue to monitor for now. Further recommendations based on patient needs. Time with Patient: Greater than 30
[2016-11-07 14:42] VITALS: BMI 27.1
--- NOTE | 2016-11-07 15:45 | P.PN ---
Subjective This is a 60-year-old male one of my patient with a previous medical history significant for extensive COPD with bullous emphysema, hyperlipidemia, hypertension. He was recently admitted from our facility and discharged on secondary to left spontaneous pneumothorax. He presented initially on 04/27/2016 with increasing shortness of breath and was found to have a left- sided pneumothorax requiring ThoraVent by cardiothoracic surgeon, and the patient was subsequently admitted to the selective care unit. . CAT scan of the chest performed at that time shows extensive COPD with bullae formation as well as upper lung fibrosis. Also was treated with COPD exacerbation requiring oral prednisone and inhalers. He was finally discharged with residual pneumothorax of 15% on chest x-ray, subsequently the patient was discharged home and then came back with significant pneumothorax with subcutaneous emphysema that time 40-50% collapse with subcutaneous emphysema. No mediastinal shift. Chest tube was placed at the emergency room by the emergency room physician and was transferred to selective care with consults to cardiothoracic surgeon, eventually patient was discharged home on THORAVENT after his chest tube was removed and he was supposed to come back to the emergency department for evaluation for possible removal of ThORAVENT, Patient underwent a bedside left-sided talc pleurodesis with Dr. Mejia, and eventually was sent home and follow up with me as an outpatient, patient has been doing fine and he has been following with thoracic surgery as an outpatient until he was cleared the patient up or he came to the emergency department at [facility] yesterday with increased shortness breath he was found to have a significant right-sided pneumothorax about 50% and had a long conversation with the ER physician and contacted Dr. Mejia at that time and the plan was to transfer the patient to the emergency department at [facility] for evaluation by thoracic surgery as there was no thrush surgery on site at [facility], patient was transferred on a BiPAP by the time he got there he became quite hypoxemic he ended up intubating the patient to the ER he had right-sided chest tube that was placed by Dr. Galaviz and subsequently he was admitted to the intensive care unit, and pulmonary consultation was obtained from Dr. Dueñas. 11/02: Patient continues to be intubated on mechanical ventilation. Chest tube remains in place for right spontaneous pneumothorax. He is followed by cardiothoracic surgeon as well as Dr. Dueñas from pulmonary medicine. Patient is also followed by cardiology and noted to have borderline troponins likely due to hypoxia and troponin leak. Echocardiogram has been ordered and report is pending. Tube feedings have been started. Urine output has been 30-35 mL per hour. No diarrhea. 11/03: Patient is laying down in bed he can dyspnea on the ventilator he is currently on the CMV mode with FiO2 of 50%, tidal volume of 500 and PEEP of 5 he is currently sedated, he has 2 chest tubes and top of each other on the right side. I spoke with his at the bedside and all her questions were answered. 11/04: Patient remains sedated, intubated and on on mechanical ventilation. Patient had episode of restlessness with increased heart rate and tube feeding didn't come loose and there was concern for aspiration for which we have added and Zosyn. Patient's told his nurse that he has been drinking 5-6 24 ounce beers per day when it was thought that the patient had cut back or stopped drinking. Subcutaneous emphysema is improved today. He has had good urine output. He has extreme scrotal edema. 11/07: He remains intubated and on mechanical ventilation. Patient is unable to tolerate sedation holiday. He remains with chest tube and Pelaez catheter in place. Urine output has been adequate. He has significant scrotal edema continues for which she has been seen by Dr. Lockwood with no specific treatment necessary and aspiration of air in the scrotum could be performed. Albumin and Lasix have been ordered. Repeat chest x-ray shows small residual right-sided pneumothorax. Left basilar airspace disease. Small left-sided effusion. Objective - Vital Signs Vital signs: Vital Signs Temp 98.4 F 11/07/16 08:00 Pulse 99 11/07/16 10:00 Resp 28 H 11/07/16 10:00 BP 120/61 11/07/16 10:00 Pulse Ox 95 11/07/16 10:00 Intake & Output 11/06/16 11/07/16 11/07/16 18:59 06:59 18:59 Intake Total 2557.849 2429.638 889.190 Output Total 2950 1530 485 Balance -392.151 899.638 404.190 Weight 109.2 kg Intake: IV 1200 1200 400 Sodium Chloride 0.9% 1, 1200 1200 400 000 ml @ 100 mls/hr IV . Q10H [facility] Rx#:[id number] Intake, IV Titration 287.849 159.638 179.190 Amount Levofloxacin 500Mg-D5w 100 100 Pmx 500 mg In Dextrose/ Water 1 100ml.bag @ 100 mls/hr IVPB Q24HR [facility] Rx# :[id number] Piperacillin-Tazobactam 3 87.5 12.5 25.0 .375 gm In Dextrose/Water 1 50ml.bag @ 12.5 mls/hr IVPB Q8HR [facility] Rx#: [id number] Propofol 500 mg In Empty 100.349 147.138 54.190 Bag 1 bag @ Titrate IV . Q0M [facility] Rx#:[id number] Tube Feeding 980 980 280 Other 90 90 30 Output: Chest Tube Drainage 0 30 Chest Tube Right Lower 0 30 Mid-Axillary Chest Urine 2950 1500 485 Other: Voiding Method Indwelling Catheter Indwelling Catheter - Exam General appearance: no distress (Patient is currently intubated on the ventilator with sedation on board.) - EENT Eyes: EOMI, PERRLA, poor dentition ENT: other (ET tube in place and oral gastric tube in place.) Ears: bilateral: normal - Neck Neck: no rigidity, no stridor, no thyromegaly Carotids: bilateral: upstroke delayed - Respiratory Respiratory: bilateral: diminished, dullness, rales, rhonchi, wheezing, prolonged expiration (There is a right sided chest tube and minimal right subcutaneous emphysema) - Cardiovascular Rhythm: regular Heart sounds: normal: S1, S2 Abnormal Heart Sounds: systolic murmur, no rub, no S3 Gallop, no S4 Gallop, no click - Gastrointestinal General gastrointestinal: normal bowel sounds, soft, no splenomegaly, no tenderness, no umbilical hernia, no ventral hernia - Integumentary Integumentary: normal, normal turgor - Psychiatric Psychiatric: no A&O x's 3, no appropriate affect, no intact judgment & insight ( Patient is currently intubated and sedated on the ventilator.) - Labs CBC & Chem 7: 11/07/16 05:12 11/07/16 05:12 Labs: Abnormal Lab Results - Last 24 Hours (Table) 11/06/16 11/06/16 11/06/16 Range/Units 12:39 17:48 23:59 RBC (4.30-5.90) m/uL Hgb (13.0-17.5) gm/dL Hct (39.0-53.0) % MCV (80.0-100.0) fL Lymphocytes # (1.0-4.8) k/uL ABG pCO2 (35-45) mmHg ABG HCO3 (21-25) mmol/L ABG Total CO2 (19-24) mmol/L Carbon Dioxide (22-30) mmol/L Creatinine (0.66-1.25) mg/dL Glucose (74-99) mg/dL POC Glucose (mg/dL) 115 H 133 H 106 H (75-99) mg/dL 11/07/16 11/07/16 11/07/16 Range/Units 05:12 05:12 05:20 RBC 3.47 L (4.30-5.90) m/uL Hgb 11.2 L (13.0-17.5) gm/dL Hct 35.5 L (39.0-53.0) % MCV 102.5 H (80.0-100.0) fL Lymphocytes # 0.7 L (1.0-4.8) k/uL ABG pCO2 53 H (35-45) mmHg ABG HCO3 31 H (21-25) mmol/L ABG Total CO2 33 H (19-24) mmol/L Carbon Dioxide 32 H (22-30) mmol/L Creatinine 0.60 L (0.66-1.25) mg/dL Glucose 122 H (74-99) mg/dL POC Glucose (mg/dL) (75-99) mg/dL Assessment and Plan Plan: 1. Right sided spontaneous pneumothorax with acute on chronic hypoxic respiratory failure requiring intubation and mechanical ventilation. Post chest tube placement in the ER and subsequently by cardiothoracic surgeon, continue DuoNeb treatments, Pulmicort twice every day, pulmonary consultation, thoracic surgery consultation monitor the patient very closely. 2. COPD exacerbation with chronic hypoxic respiratory failure and home O2 dependence. We will continue with nebulized treatment, oxygen support, monitor the blood gases. 3. Leukocytosis. Likely reactive monitor CBC the next 24 hours. 4. Degenerative disc disease. Stable at this time. 5. Severe emphysema with bulla . With recurrent pneumothorax. 6. Tobacco use and dependence. I believe the patient had quit smoking. 7. History of alcohol abuse. I believe the patient had cut back. 8. DVT prophylaxis. Heparin 5000 units subcutaneously every 12 hours. 9. GI prophylaxis. Start the patient on Protonix 40 mg orally once every day. 10. Possible delirium tremens due to alcohol abuse. Continue Ativan/CIWA protocol. 11. Patient is a full code. Discharge plan: Most likely return home or subacute rehab Impression and plan of care have been directed as dictated by the signing physician. Dianelys Aden nurse practitioner acting as scribe for signing physician.
[2016-11-07] MEDS ORDERED: DEXMEDETOMIDINE 400 MCG in SODIUM CHLORIDE 0.9% 100 ML IV SCH (16:15)
[2016-11-07] MEDS: DEXMEDETOMIDINE 400 MCG in SODIUM CHLORIDE 0.9% 100 ML IV SCH (16:46)
[2016-11-07 18:55] LABS: Glucose,Whole Blood 104 mg/dL (75-99)
[2016-11-07] MEDS ORDERED: NOREPINEPHRIN 4 MG-0.9% NS PMX 4 MG/250 ML ML IV SCH (19:30)
[2016-11-08] MEDS: PIPERACILLIN-TAZOBACTAM 3.375 GM in DEXTROSE/WATER 1 50ML.BAG IVPB SCH ×3 (00:07→17:03)
[2016-11-08] MEDS: DEXMEDETOMIDINE 400 MCG in SODIUM CHLORIDE 0.9% 100 ML IV SCH ×2 (00:26→07:09)
[2016-11-08 02:17] LABS: Glucose,Whole Blood 111 mg/dL (75-99)
[2016-11-08] MEDS: IPRATROPIUM-ALBUTEROL 3 ML NEB INHALATION SCH ×5 (03:42→20:18)
[2016-11-08] MEDS: PROPOFOL 500 MG in EMPTY BAG 1 BAG IV SCH ×5 (03:48→08:05)
[2016-11-08 05:45] LABS: ABG Base Excess 8.6 mmol/L; ABG HCO3 33 mmol/L (21-25); ABG PCO2 53 mmHg (35-45); ABG PH 7.42 (7.35-7.45); ABG PO2 93 mmHg (83-108); ABG TCO2 35 mmol/L (19-24)
[2016-11-08 06:02] LABS: Basophils % (A) 0 %; CH 31.4; CHCM 31.2; Eosinophils # (A) 0.4 k/uL (0-0.7); Eosinophils % (A) 5 %; HCT 36.1 % (39.0-53.0); HDW 2.18; HGB 11.5 gm/dL (13.0-17.5); Luc # (Auto) 0.18; Luc % (Auto) 2; Lymphocytes # (A) 1.3 k/uL (1.0-4.8); Lymphocytes % (A) 16 %; MCH 32.3 pg (25.0-35.0); Mean Platelet Volume 7.3; Monocytes # (A) 0.8 k/uL (0-1.0); Monocytes % (A) 9 %; Neutrophils # (A) 5.7 k/uL (1.3-7.7); Neutrophils % (A) 67 %; RBC 3.57 m/uL (4.30-5.90); RDW 13.3 % (11.5-15.5); WBC 8.5 k/uL (3.8-10.6); WBC (Perox) 8.31
[2016-11-08 06:17] LABS: Anion Gap 7 mmol/L; Blood Urea Nitrogen 31 mg/dL (9-20); Calcium 9.5 mg/dL (8.4-10.2); Carbon Dioxide 33 mmol/L (22-30); Chloride 105 mmol/L (98-107); Glucose 117 mg/dL (74-99); Magnesium 2.5 mg/dL (1.6-2.3); Non-African American GFR(MDRD) >60 (>60 ml/min/1.73 sqM); Phosphorous 4.3 mg/dL (2.5-4.5); Potassium 4.3 mmol/L (3.5-5.1); Sodium 145 mmol/L (137-145)
[2016-11-08 06:34] LABS: Glucose,Whole Blood 108 mg/dL (75-99)
[2016-11-08] MEDS: SODIUM CHLORIDE 0.9% 1,000 ML IV SCH ×2 (06:40→17:03)
[2016-11-08] MEDS: BUDESONIDE 0.5 MG/2 ML NEBU INHALATION SCH ×2 (07:33→20:18)
[2016-11-08] MEDS: CHLORHEXIDINE GLUCONATE 15 ML CUP MUCOUS MEM SCH ×2 (08:51→22:27)
[2016-11-08] MEDS: PANTOPRAZOLE 40 MG/10 ML VIAL IVP SCH (08:51)
[2016-11-08] MEDS: HEPARIN SODIUM,PORCINE 5,000 UNIT/ML 1 ML VIAL SQ SCH ×3 (08:51→23:16)
--- NOTE | 2016-11-08 08:58 | XR ---
EXAMINATION TYPE: XR chest 1V DATE OF EXAM: 11/08/2016 6:39 AM COMPARISON: Prior chest x-ray October HISTORY: Pneumothorax, chest tube TECHNIQUE: Single frontal view of the chest is obtained. FINDINGS: Endotracheal tube, NG tube are again noted and are overlying appropriate positions. Side-p ort of the NG tube may be in close proximity to the gastroesophageal junction. Small right-sided pneu mothorax suspected. Prominent lung volumes suggest underlying COPD. There are overlying cardiac leads . Cardiomediastinal silhouette, pulmonary vascularity and jenaro are stable. Lung apices are not entire ly included on the exam. There may be scarring or atelectasis in the left lung, difficult to exclude airspace disease. IMPRESSION: Similar findings to previous exam. Small right-sided pneumothorax is suspected. Limitati ons as described.
[2016-11-08 09:39] LABS: ABG Base Excess 7.6 mmol/L; ABG HCO3 32 mmol/L (21-25); ABG Oxygen Saturation 97.5 % (94-97); ABG PCO2 48 mmHg (35-45); ABG PH 7.44 (7.35-7.45); ABG PO2 94 mmHg (83-108); ABG TCO2 33 mmol/L (19-24)
--- NOTE | 2016-11-08 09:55 | P.PN ---
Subjective Principal diagnosis: Right-sided pneumothorax, POD #6 placement of superior right-sided pleural chest tube. POD #5 placement of inferior right-sided pleural chest tube. This patient continues to be sedated on mechanical ventilation. Right pleural chest tube remains. Objective - Vital Signs Vital signs: Vital Signs Temp 98.2 F 11/08/16 04:00 Pulse 84 11/08/16 07:45 Resp 20 11/08/16 06:00 BP 108/47 11/08/16 06:00 Pulse Ox 91 L 11/08/16 06:00 Intake & Output 11/07/16 11/08/16 11/08/16 18:59 06:59 18:59 Intake Total 3016.361 2832.597 161.149 Output Total 940 878 Balance 2076.361 1954.597 161.149 Weight 109.2 kg 110 kg Intake: IV 1200 1300 Sodium Chloride 0.9% 1, 1200 1300 000 ml @ 100 mls/hr IV . Q10H [facility] Rx#:[id number] Intake, IV Titration 606.361 272.597 161.149 Amount Albumin Human 25% 50 ml 100 In Empty Bag 1 bag @ 100 mls/hr IVPB Q1H [facility] Rx#: [id number] Dexmedetomidine 400 mcg 9.072 92.503 106.722 In Sodium Chloride 0.9% 100 ml @ Titrate IV .Q0M [facility] Rx#:[id number] Levofloxacin 500Mg-D5w 100 Pmx 500 mg In Dextrose/ Water 1 100ml.bag @ 100 mls/hr IVPB Q24HR [facility] Rx# :[id number] Piperacillin-Tazobactam 3 25.0 50 .375 gm In Dextrose/Water 1 50ml.bag @ 12.5 mls/hr IVPB Q8HR [facility] Rx#: [id number] Propofol 500 mg In Empty 372.289 130.094 54.427 Bag 1 bag @ Titrate IV . Q0M [facility] Rx#:[id number] Tube Feeding 1120 1260 Other 90 Output: Chest Tube Drainage 8 Chest Tube Right Lower 8 Mid-Axillary Chest Urine 940 870 Other: Voiding Method Indwelling Catheter Indwelling Catheter - Constitutional General appearance: Present: no acute distress - Respiratory Details: Lungs sounds remain very diminished bilaterally. Respirations even, nonlabored on mechanical ventilation. Current settings FiO2 50%, tidal volume 500, respiratory rate 18, PEEP 5. Right pleural chest tube to -20 cm wall suction. Drained 20 mL serous fluid in the last 24 hours. No air leak present. - Cardiovascular Details: S1, S2 present. Regular rate and rhythm, normal sinus rhythm on telemetry. - Gastrointestinal Gastrointestinal Comment(s): Abdomen soft, nontender, nondistended. Active bowel sounds 4 quadrants. Currently tube fed at a rate of 70 mL per hour through OG tube. - Genitourinary Genitourinary Comment(s): Pelaez present draining clear, yellow urine. Output 60-80 mL/h overnight. - Neurologic Neurologic Comment(s): Currently sedated on mechanical ventilation. Does withdraw to painful stimuli. - Allied health notes Allied health notes reviewed: nursing - Labs CBC & Chem 7: 11/08/16 05:15 11/08/16 05:15 Labs: Abnormal Lab Results - Last 24 Hours (Table) 11/07/16 11/07/16 11/08/16 Range/Units 11:46 18:53 02:16 RBC (4.30-5.90) m/uL Hgb (13.0-17.5) gm/dL Hct (39.0-53.0) % MCV (80.0-100.0) fL ABG pCO2 (35-45) mmHg ABG HCO3 (21-25) mmol/L ABG Total CO2 (19-24) mmol/L ABG O2 Saturation (94-97) % Carbon Dioxide (22-30) mmol/L BUN (9-20) mg/dL Glucose (74-99) mg/dL POC Glucose (mg/dL) 129 H 104 H 111 H (75-99) mg/dL Magnesium (1.6-2.3) mg/dL 11/08/16 11/08/16 11/08/16 Range/Units 05:15 05:15 05:40 RBC 3.57 L (4.30-5.90) m/uL Hgb 11.5 L (13.0-17.5) gm/dL Hct 36.1 L (39.0-53.0) % MCV 101.0 H (80.0-100.0) fL ABG pCO2 53 H (35-45) mmHg ABG HCO3 33 H (21-25) mmol/L ABG Total CO2 35 H (19-24) mmol/L ABG O2 Saturation (94-97) % Carbon Dioxide 33 H (22-30) mmol/L BUN 31 H (9-20) mg/dL Glucose 117 H (74-99) mg/dL POC Glucose (mg/dL) (75-99) mg/dL Magnesium 2.5 H (1.6-2.3) mg/dL 11/08/16 11/08/16 Range/Units 06:28 09:28 RBC (4.30-5.90) m/uL Hgb (13.0-17.5) gm/dL Hct (39.0-53.0) % MCV (80.0-100.0) fL ABG pCO2 48 H (35-45) mmHg ABG HCO3 32 H (21-25) mmol/L ABG Total CO2 33 H (19-24) mmol/L ABG O2 Saturation 97.5 H (94-97) % Carbon Dioxide (22-30) mmol/L BUN (9-20) mg/dL Glucose (74-99) mg/dL POC Glucose (mg/dL) 108 H (75-99) mg/dL Magnesium (1.6-2.3) mg/dL - Imaging and Cardiology Chest x-ray: image reviewed Assessment and Plan (1) Pneumothorax, right Status: Acute (2) COPD (chronic obstructive pulmonary disease) Status: Acute (3) Respiratory failure Status: Acute Plan: 1. Wean O2 as tolerated. Ventilator management per pulmonology. 2. Maintain chest tube to wall suction. 3. Daily chest x-rays. 4. Other medical comorbidities to be managed per primary service. 5. More recommendations as patient progresses. Time with Patient: Greater than 30
[2016-11-08] MEDS: LEVOFLOXACIN 500MG-D5W PMX 500 MG in DEXTROSE/WATER 1 100ML.BAG IVPB SCH (12:44)
--- NOTE | 2016-11-08 13:18 | XR ---
EXAMINATION TYPE: XR chest 1V portable DATE OF EXAM: 11/08/2016 1:12 PM COMPARISON: Prior chest x-ray 11 May 2017 HISTORY: Chest 2, pneumothorax TECHNIQUE: frontal view of the chest is obtained on 2 images. FINDINGS: Right-sided chest tube remains in place. Patchy density persists at the left lung base. No significant pneumothorax is evident. Minimal residual pneumothorax is suspected. Subcutaneous emphys eugenia is present. There are overlying cardiac leads. IMPRESSION: Suspect some slight improvement although there are differences in technique.
--- NOTE | 2016-11-08 14:05 | P.PN ---
Subjective This is a 60-year-old male one of my patient with a previous medical history significant for extensive COPD with bullous emphysema, hyperlipidemia, hypertension. He was recently admitted from our facility and discharged on secondary to left spontaneous pneumothorax. He presented initially on 04/27/2016 with increasing shortness of breath and was found to have a left- sided pneumothorax requiring ThoraVent by cardiothoracic surgeon, and the patient was subsequently admitted to the selective care unit. . CAT scan of the chest performed at that time shows extensive COPD with bullae formation as well as upper lung fibrosis. Also was treated with COPD exacerbation requiring oral prednisone and inhalers. He was finally discharged with residual pneumothorax of 15% on chest x-ray, subsequently the patient was discharged home and then came back with significant pneumothorax with subcutaneous emphysema that time 40-50% collapse with subcutaneous emphysema. No mediastinal shift. Chest tube was placed at the emergency room by the emergency room physician and was transferred to selective care with consults to cardiothoracic surgeon, eventually patient was discharged home on THORAVENT after his chest tube was removed and he was supposed to come back to the emergency department for evaluation for possible removal of ThORAVENT, Patient underwent a bedside left-sided talc pleurodesis with Dr. Mejia, and eventually was sent home and follow up with me as an outpatient, patient has been doing fine and he has been following with thoracic surgery as an outpatient until he was cleared the patient up or he came to the emergency department at [facility] yesterday with increased shortness breath he was found to have a significant right-sided pneumothorax about 50% and had a long conversation with the ER physician and contacted Dr. Mejia at that time and the plan was to transfer the patient to the emergency department at [facility] for evaluation by thoracic surgery as there was no thrush surgery on site at [facility], patient was transferred on a BiPAP by the time he got there he became quite hypoxemic he ended up intubating the patient to the ER he had right-sided chest tube that was placed by Dr. Galaviz and subsequently he was admitted to the intensive care unit, and pulmonary consultation was obtained from Dr. Dueñas. 11/02: Patient continues to be intubated on mechanical ventilation. Chest tube remains in place for right spontaneous pneumothorax. He is followed by cardiothoracic surgeon as well as Dr. Dueñas from pulmonary medicine. Patient is also followed by cardiology and noted to have borderline troponins likely due to hypoxia and troponin leak. Echocardiogram has been ordered and report is pending. Tube feedings have been started. Urine output has been 30-35 mL per hour. No diarrhea. 11/03: Patient is laying down in bed he can dyspnea on the ventilator he is currently on the CMV mode with FiO2 of 50%, tidal volume of 500 and PEEP of 5 he is currently sedated, he has 2 chest tubes and top of each other on the right side. I spoke with his at the bedside and all her questions were answered. 11/04: Patient remains sedated, intubated and on on mechanical ventilation. Patient had episode of restlessness with increased heart rate and tube feeding didn't come loose and there was concern for aspiration for which we have added and Zosyn. Patient's told his nurse that he has been drinking 5-6 24 ounce beers per day when it was thought that the patient had cut back or stopped drinking. Subcutaneous emphysema is improved today. He has had good urine output. He has extreme scrotal edema. 11/07: He remains intubated and on mechanical ventilation. Patient is unable to tolerate sedation holiday. He remains with chest tube and Pelaez catheter in place. Urine output has been adequate. He has significant scrotal edema continues for which she has been seen by Dr. Lockwood with no specific treatment necessary and aspiration of air in the scrotum could be performed. Albumin and Lasix have been ordered. Repeat chest x-ray shows small residual right-sided pneumothorax. Left basilar airspace disease. Small left-sided effusion. 11/08: Patient has been successfully extubated and is on oxygen at 4 L nasal cannula.. Repeat chest x-ray shows slight improvement. He has been afebrile. PT and OT are following. Social work is following for discharge planning. Objective - Vital Signs Vital signs: Vital Signs Temp 97.7 F 11/08/16 09:30 Pulse 95 11/08/16 10:00 Resp 27 H 11/08/16 10:00 BP 156/50 11/08/16 10:00 Pulse Ox 94 L 11/08/16 10:00 Intake & Output 11/07/16 11/08/16 11/08/16 18:59 06:59 18:59 Intake Total 3016.361 2832.597 601.149 Output Total 940 878 300 Balance 2076.361 1954.597 301.149 Weight 109.2 kg 110 kg Intake: IV 1200 1300 300 Sodium Chloride 0.9% 1, 1200 1300 300 000 ml @ 100 mls/hr IV . Q10H [facility] Rx#:[id number] Intake, IV Titration 606.361 272.597 161.149 Amount Albumin Human 25% 50 ml 100 In Empty Bag 1 bag @ 100 mls/hr IVPB Q1H [facility] Rx#: [id number] Dexmedetomidine 400 mcg 9.072 92.503 106.722 In Sodium Chloride 0.9% 100 ml @ Titrate IV .Q0M [facility] Rx#:[id number] Levofloxacin 500Mg-D5w 100 Pmx 500 mg In Dextrose/ Water 1 100ml.bag @ 100 mls/hr IVPB Q24HR [facility] Rx# :[id number] Piperacillin-Tazobactam 3 25.0 50 .375 gm In Dextrose/Water 1 50ml.bag @ 12.5 mls/hr IVPB Q8HR [facility] Rx#: [id number] Propofol 500 mg In Empty 372.289 130.094 54.427 Bag 1 bag @ Titrate IV . Q0M [facility] Rx#:[id number] Tube Feeding 1120 1260 140 Other 90 Output: Chest Tube Drainage 8 Chest Tube Right Lower 8 Mid-Axillary Chest Urine 940 870 300 Other: Voiding Method Indwelling Catheter Indwelling Catheter Indwelling Catheter - Exam General appearance: no distress (Patient is currently intubated on the ventilator with sedation on board.) - EENT Eyes: EOMI, PERRLA, poor dentition ENT: other (ET tube in place and oral gastric tube in place.) Ears: bilateral: normal - Neck Neck: no rigidity, no stridor, no thyromegaly Carotids: bilateral: upstroke delayed - Respiratory Respiratory: bilateral: diminished, dullness, rales, rhonchi, wheezing, prolonged expiration (There is a right sided chest tube and minimal right subcutaneous emphysema) - Cardiovascular Rhythm: regular Heart sounds: normal: S1, S2 Abnormal Heart Sounds: systolic murmur, no rub, no S3 Gallop, no S4 Gallop, no click - Gastrointestinal General gastrointestinal: normal bowel sounds, soft, no splenomegaly, no tenderness, no umbilical hernia, no ventral hernia - Integumentary Integumentary: normal, normal turgor - Psychiatric Psychiatric: A&O x's 3, no appropriate affect, intact judgment & insight ( Patient is currently intubated and sedated on the ventilator.) - Labs CBC & Chem 7: 11/08/16 05:15 11/08/16 05:15 Labs: Abnormal Lab Results - Last 24 Hours (Table) 11/07/16 11/07/16 11/08/16 Range/Units 11:46 18:53 02:16 RBC (4.30-5.90) m/uL Hgb (13.0-17.5) gm/dL Hct (39.0-53.0) % MCV (80.0-100.0) fL ABG pCO2 (35-45) mmHg ABG HCO3 (21-25) mmol/L ABG Total CO2 (19-24) mmol/L ABG O2 Saturation (94-97) % Carbon Dioxide (22-30) mmol/L BUN (9-20) mg/dL Glucose (74-99) mg/dL POC Glucose (mg/dL) 129 H 104 H 111 H (75-99) mg/dL Magnesium (1.6-2.3) mg/dL 11/08/16 11/08/16 11/08/16 Range/Units 05:15 05:15 05:40 RBC 3.57 L (4.30-5.90) m/uL Hgb 11.5 L (13.0-17.5) gm/dL Hct 36.1 L (39.0-53.0) % MCV 101.0 H (80.0-100.0) fL ABG pCO2 53 H (35-45) mmHg ABG HCO3 33 H (21-25) mmol/L ABG Total CO2 35 H (19-24) mmol/L ABG O2 Saturation (94-97) % Carbon Dioxide 33 H (22-30) mmol/L BUN 31 H (9-20) mg/dL Glucose 117 H (74-99) mg/dL POC Glucose (mg/dL) (75-99) mg/dL Magnesium 2.5 H (1.6-2.3) mg/dL 11/08/16 11/08/16 Range/Units 06:28 09:28 RBC (4.30-5.90) m/uL Hgb (13.0-17.5) gm/dL Hct (39.0-53.0) % MCV (80.0-100.0) fL ABG pCO2 48 H (35-45) mmHg ABG HCO3 32 H (21-25) mmol/L ABG Total CO2 33 H (19-24) mmol/L ABG O2 Saturation 97.5 H (94-97) % Carbon Dioxide (22-30) mmol/L BUN (9-20) mg/dL Glucose (74-99) mg/dL POC Glucose (mg/dL) 108 H (75-99) mg/dL Magnesium (1.6-2.3) mg/dL Assessment and Plan Plan: 1. Right sided spontaneous pneumothorax with acute on chronic hypoxic respiratory failure requiring intubation and mechanical ventilation status post extubation. Post chest tube placement in the ER and subsequently by cardiothoracic surgeon, continue DuoNeb treatments, Pulmicort twice every day, pulmonary consultation, thoracic surgery consultation monitor the patient very closely. 2. COPD exacerbation with chronic hypoxic respiratory failure and home O2 dependence. We will continue with nebulized treatment, oxygen support, monitor the blood gases. 3. Leukocytosis. Likely reactive monitor CBC the next 24 hours. 4. Degenerative disc disease. Stable at this time. 5. Severe emphysema with bulla . With recurrent pneumothorax. 6. Tobacco use and dependence. I believe the patient had quit smoking. 7. History of alcohol abuse. I believe the patient had cut back. 8. DVT prophylaxis. Heparin 5000 units subcutaneously every 12 hours. 9. GI prophylaxis. Start the patient on Protonix 40 mg orally once every day. 10. Delirium tremens and toxic encephalopathy due to alcohol abuse. Continue Ativan/CIWA protocol. 11. Patient is a full code. Discharge plan: Most likely subacute rehab Impression and plan of care have been directed as dictated by the signing physician. Dianelys Aden nurse practitioner acting as scribe for signing physician.
[2016-11-08] MEDS: THIAMINE 100 MG TAB PO SCH (16:21)
[2016-11-08] MEDS ORDERED: ACETAMINOPHEN IV (For NPO) 1,000 MG in EMPTY BAG 1 BAG IVPB STA (16:33)
[2016-11-08 18:09] LABS: Glucose,Whole Blood 101 mg/dL (75-99)
--- NOTE | 2016-11-08 18:17 | P.PN ---
Subjective Principal diagnosis: Pneumothorax Patient seen and examined in the ICU with nursing staff and patient's at bedside. The patient was successfully extubated this morning. Precedex is being weaned down. Patient's is updated. The patient is alert and oriented. He does remember collapsing at home but nothing after that. He denies pain. His breathing is "ok." Objective - Vital Signs Vital signs: Vital Signs Temp 98.2 F 11/08/16 16:00 Pulse 96 11/08/16 16:47 Resp 18 11/08/16 16:47 BP 139/68 11/08/16 16:00 Pulse Ox 98 11/08/16 16:00 Intake & Output 11/07/16 11/08/16 11/08/16 18:59 06:59 18:59 Intake Total 3016.361 2832.597 1201.149 Output Total 940 878 950 Balance 2076.361 1954.597 251.149 Weight 109.2 kg 110 kg Intake: IV 1200 1300 900 Sodium Chloride 0.9% 1, 1200 1300 900 000 ml @ 100 mls/hr IV . Q10H [facility] Rx#:[id number] Intake, IV Titration 606.361 272.597 161.149 Amount Albumin Human 25% 50 ml 100 In Empty Bag 1 bag @ 100 mls/hr IVPB Q1H [facility] Rx#: [id number] Dexmedetomidine 400 mcg 9.072 92.503 106.722 In Sodium Chloride 0.9% 100 ml @ Titrate IV .Q0M [facility] Rx#:[id number] Levofloxacin 500Mg-D5w 100 Pmx 500 mg In Dextrose/ Water 1 100ml.bag @ 100 mls/hr IVPB Q24HR [facility] Rx# :[id number] Piperacillin-Tazobactam 3 25.0 50 .375 gm In Dextrose/Water 1 50ml.bag @ 12.5 mls/hr IVPB Q8HR [facility] Rx#: [id number] Propofol 500 mg In Empty 372.289 130.094 54.427 Bag 1 bag @ Titrate IV . Q0M [facility] Rx#:[id number] Tube Feeding 1120 1260 140 Other 90 Output: Chest Tube Drainage 8 Chest Tube Right Lower 8 Mid-Axillary Chest Urine 940 870 950 Other: Voiding Method Indwelling Catheter Indwelling Catheter Indwelling Catheter - Exam Gen.: Patient is extubated, alert, oriented Cardiovascular: Regular rate and rhythm, S1/S2 Lungs: Diminished breath sounds bilaterally with scattered wheezing, right chest tube in place Abdomen: Soft nontender nondistended positive bowel sounds Extremities: No edema - Labs CBC & Chem 7: 11/08/16 05:15 11/08/16 05:15 Labs: Abnormal Lab Results - Last 24 Hours (Table) 11/07/16 11/08/16 11/08/16 Range/Units 18:53 02:16 05:15 RBC 3.57 L (4.30-5.90) m/uL Hgb 11.5 L (13.0-17.5) gm/dL Hct 36.1 L (39.0-53.0) % MCV 101.0 H (80.0-100.0) fL ABG pCO2 (35-45) mmHg ABG HCO3 (21-25) mmol/L ABG Total CO2 (19-24) mmol/L ABG O2 Saturation (94-97) % Carbon Dioxide (22-30) mmol/L BUN (9-20) mg/dL Glucose (74-99) mg/dL POC Glucose (mg/dL) 104 H 111 H (75-99) mg/dL Magnesium (1.6-2.3) mg/dL 11/08/16 11/08/16 11/08/16 Range/Units 05:15 05:40 06:28 RBC (4.30-5.90) m/uL Hgb (13.0-17.5) gm/dL Hct (39.0-53.0) % MCV (80.0-100.0) fL ABG pCO2 53 H (35-45) mmHg ABG HCO3 33 H (21-25) mmol/L ABG Total CO2 35 H (19-24) mmol/L ABG O2 Saturation (94-97) % Carbon Dioxide 33 H (22-30) mmol/L BUN 31 H (9-20) mg/dL Glucose 117 H (74-99) mg/dL POC Glucose (mg/dL) 108 H (75-99) mg/dL Magnesium 2.5 H (1.6-2.3) mg/dL 11/08/16 11/08/16 Range/Units 09:28 18:06 RBC (4.30-5.90) m/uL Hgb (13.0-17.5) gm/dL Hct (39.0-53.0) % MCV (80.0-100.0) fL ABG pCO2 48 H (35-45) mmHg ABG HCO3 32 H (21-25) mmol/L ABG Total CO2 33 H (19-24) mmol/L ABG O2 Saturation 97.5 H (94-97) % Carbon Dioxide (22-30) mmol/L BUN (9-20) mg/dL Glucose (74-99) mg/dL POC Glucose (mg/dL) 101 H (75-99) mg/dL Magnesium (1.6-2.3) mg/dL Assessment and Plan Plan: Acute on chronic hypoxic and hypercapnic respiratory failure, s/p mechanical ventilation Right spontaneous pneumothorax, CT in place Bullous emphysema History of tobacco abuse Alcohol abuse Hematuria Acute exacerbation of COPD Extubated successfully this morning, patient is doing well on 4L NC. O2 to maintain sat > or = 88% Serial chest x-rays Chest tubes per thoracic surgery Antibiotics: Levaquin, Zosyn Sputum, blood, urine cultures Bronchodilators and Pulmicort GI and DVT prophylaxis Continue tube feeding, consult dietitian Tylenol PRN fever. DC Precedex, Propofol Consult PT and OT Swallow evaluation in AM
[2016-11-08] MEDS: hydrALAZINE HCL 20 MG/ML 1 ML VIAL IVP PRN (18:51)
[2016-11-08] MEDS ORDERED: IPRATROPIUM-ALBUTEROL 3 ML NEB INHALATION PRN (20:42)
[2016-11-08] MEDS ORDERED: MELATONIN 3 MG TABLET PO PRN (21:00)
[2016-11-08] MEDS ORDERED: ALPRAZolam 0.25 MG TAB PO PRN (21:00)
[2016-11-08] MEDS ORDERED: cloNIDine 0.1 MG/24HR PATCH 1 PATCH PATCH TRANSDERM SCH (21:30)
[2016-11-08] MEDS ORDERED: LORazepam 2 MG/ML SYRINGE IV STA (22:51)
--- NOTE | 2016-11-08 23:35 | XR ---
EXAM: XR Chest, 1 View CLINICAL HISTORY: Reason: post extubation TECHNIQUE: Frontal view of the chest. COMPARISON: CT chest 11/01/2016, chest x-ray 11/08/2016. FINDINGS: Lungs: Bibasilar airspace disease, left worse than right. Scarring of the lower lateral left lung. Hyperinflation of the lungs. Pleural space: Slightly increased size of the small right pneumothorax. Unchanged positioning of the large-bore chest tube. Please correlate with tube function. Small left pleural effusion. Heart: Unremarkable. No cardiomegaly. Mediastinum: Unremarkable. Bones/joints: Mild degenerative changes of the spine. Soft tissues: Soft tissue air of the right chest wall. IMPRESSION: 1. Slightly increased size of the small right pneumothorax. Unchanged positioning of the large-bore chest tube. Please correlate with tube function. 2. Bibasilar airspace disease, left worse than right. 3. Small left pleural effusion. [employer] 11/09/16 00:00 Verify Receipt Verified receipt with RADHA Gordillo in ICU on 11/09 00:00 (-04:00)
[2016-11-09] MEDS: PIPERACILLIN-TAZOBACTAM 3.375 GM in DEXTROSE/WATER 1 50ML.BAG IVPB SCH ×2 (02:43→10:07)
[2016-11-09] MEDS: SODIUM CHLORIDE 0.9% 1,000 ML IV SCH (02:44)
[2016-11-09 04:51] LABS: CH 31.1; CHCM 31.3; HCT 36.1 % (39.0-53.0); HDW 2.09; HGB 11.6 gm/dL (13.0-17.5); MCV 99.8 fL (80.0-100.0); Mean Platelet Volume 8.1; RBC 3.62 m/uL (4.30-5.90); RDW 13.6 % (11.5-15.5); WBC 11.5 k/uL (3.8-10.6)
[2016-11-09 05:03] LABS: Anion Gap 8 mmol/L; Blood Urea Nitrogen 28 mg/dL (9-20); Calcium 9.2 mg/dL (8.4-10.2); Carbon Dioxide 30 mmol/L (22-30); Chloride 110 mmol/L (98-107); Glucose 101 mg/dL (74-99); Magnesium 2.5 mg/dL (1.6-2.3); Non-African American GFR(MDRD) >60 (>60 ml/min/1.73 sqM); Phosphorous 2.7 mg/dL (2.5-4.5); Potassium 5.1 mmol/L (3.5-5.1); Sodium 148 mmol/L (137-145)
[2016-11-09 07:05] LABS: Glucose,Whole Blood 89 mg/dL (75-99)
--- NOTE | 2016-11-09 07:11 | XR ---
EXAMINATION TYPE: XR chest 1V portable DATE OF EXAM: 11/09/2016 7:05 AM COMPARISON: 11/08/2016 HISTORY: Post extubation TECHNIQUE: Single frontal view of the chest is obtained. FINDINGS: Diffuse emphysematous changes seen with right-sided chest tube. Stable right-sided pneumot horax. Subcutaneous emphysema noted. Subsegmental changes and tiny effusion at both lung bases. Corre late for pulmonary arterial hypertension. Large bulla left upper lobe. IMPRESSION: 1. Chest tube with a 10-15 % right-sided pneumothorax. 2. COPD and small bilateral effusion and basilar consolidation.
[2016-11-09] MEDS: BUDESONIDE 0.5 MG/2 ML NEBU INHALATION SCH (07:39)
[2016-11-09] MEDS: IPRATROPIUM-ALBUTEROL 3 ML NEB INHALATION SCH ×2 (07:39→11:08)
[2016-11-09] MEDS: HEPARIN SODIUM,PORCINE 5,000 UNIT/ML 1 ML VIAL SQ SCH (07:55)
[2016-11-09] MEDS: LEVOFLOXACIN 500MG-D5W PMX 500 MG in DEXTROSE/WATER 1 100ML.BAG IVPB SCH (07:58)
--- NOTE | 2016-11-09 09:55 | P.PN ---
<Rosi Carrillo - Last Filed: 11/09/16 09:50> Subjective Principal diagnosis: Right-sided pneumothorax, POD #7 placement of superior right-sided pleural chest tube. POD #6 placement of inferior right-sided pleural chest tube. Currently sitting up in bed in no apparent distress. Patient was extubated yesterday, currently on Airvo @ 10 L. More alert. Objective - Vital Signs Vital signs: Vital Signs Temp 98.6 F 11/09/16 04:00 Pulse 97 11/09/16 08:00 Resp 25 H 11/09/16 06:00 BP 165/64 11/09/16 06:00 Pulse Ox 98 11/09/16 06:00 Intake & Output 11/08/16 11/09/16 11/09/16 18:59 06:59 18:59 Intake Total 0452.550 6984 Output Total 1200 755 Balance 201.149 445 Weight 101.2 kg Intake: IV 1100 1200 Sodium Chloride 0.9% 1, 1100 1200 000 ml @ 100 mls/hr IV . Q10H [facility] Rx#:[id number] Intake, IV Titration 161.149 Amount Dexmedetomidine 400 mcg 106.722 In Sodium Chloride 0.9% 100 ml @ Titrate IV .Q0M [facility] Rx#:[id number] Propofol 500 mg In Empty 54.427 Bag 1 bag @ Titrate IV . Q0M [facility] Rx#:[id number] Tube Feeding 140 Output: Urine 1200 755 Other: Voiding Method Indwelling Catheter Indwelling Catheter - Constitutional General appearance: Present: cooperative, no acute distress - Respiratory Details: Lungs sounds diminished bilaterally. Respirations even but slightly tachypneic. Currently on Airvo at 10 L. Right pleural chest tube to -20 cm wall suction, drained 100 mL in the last 24 hours. Positive air leak present. - Cardiovascular Details: S1, S2 present. Regular rate and rhythm, normal sinus rhythm on telemetry. Trace bilateral lower extremity edema present. - Gastrointestinal Gastrointestinal Comment(s): Abdomen soft, nontender, nondistended. Active bowel sounds 4 quadrants. - Genitourinary Genitourinary Comment(s): Pelaez present draining clear, yellow urine. Approximately 50-60 mL per hour. - Musculoskeletal Musculoskeletal: Present: strength equal bilaterally - Psychiatric Psychiatric Comment(s): Alert and oriented 2-3. - Allied health notes Allied health notes reviewed: nursing - Labs CBC & Chem 7: 11/09/16 04:31 11/09/16 04:31 Labs: Abnormal Lab Results - Last 24 Hours (Table) 11/08/16 11/09/16 11/09/16 Range/Units 18:06 04:31 04:31 WBC 11.5 H (3.8-10.6) k/uL RBC 3.62 L (4.30-5.90) m/uL Hgb 11.6 L (13.0-17.5) gm/dL Hct 36.1 L (39.0-53.0) % Sodium 148 H (137-145) mmol/L Chloride 110 H (98-107) mmol/L BUN 28 H (9-20) mg/dL Creatinine 0.57 L (0.66-1.25) mg/dL Glucose 101 H (74-99) mg/dL POC Glucose (mg/dL) 101 H (75-99) mg/dL Magnesium 2.5 H (1.6-2.3) mg/dL - Imaging and Cardiology Chest x-ray: image reviewed Assessment and Plan (1) Pneumothorax, right Status: Acute (2) COPD (chronic obstructive pulmonary disease) Status: Acute (3) Respiratory failure Status: Acute Plan: 1. Wean O2 as tolerated. Oxygen management per pulmonary. Incentive spirometry ordered. 2. Maintain chest tube to wall suction. 3. Daily chest x-rays. 4. Other medical comorbidities to be managed per primary service. 5. More recommendations as patient progresses. Time with Patient: Greater than 30 <Jovany Meyer - Last Filed: 11/09/16 18:02> Objective - Vital Signs Vital signs: Vital Signs Temp 97.9 F 11/09/16 15:00 Pulse 96 11/09/16 16:00 Resp 37 H 11/09/16 16:00 BP 188/66 11/09/16 16:00 Pulse Ox 93 L 11/09/16 16:00 Intake & Output 11/08/16 11/09/16 11/09/16 18:59 06:59 18:59 Intake Total 2516.428 4701 939.744 Output Total 5274 301 8463 Balance 201.149 445 -1160.256 Weight 101.2 kg Intake: IV 1100 1200 900 Sodium Chloride 0.9% 1, 1100 1200 900 000 ml @ 100 mls/hr IV . Q10H [facility] Rx#:[id number] Intake, IV Titration 161.149 39.744 Amount Dexmedetomidine 400 mcg 106.722 In Sodium Chloride 0.9% 100 ml @ Titrate IV .Q0M [facility] Rx#:[id number] Morphine Sulfate 100 mg 2.244 In Sodium Chloride 0.9% 100 ml @ 1 MG/HR 1.02 mls /hr IV .Q24H [facility] Rx#: [id number] Piperacillin-Tazobactam 3 37.5 .375 gm In Dextrose/Water 1 50ml.bag @ 12.5 mls/hr IVPB Q8HR [facility] Rx#: [id number] Propofol 500 mg In Empty 54.427 Bag 1 bag @ Titrate IV . Q0M [facility] Rx#:[id number] Tube Feeding 140 Output: Urine 0735 167 6952 Other: Voiding Method Indwelling Catheter Indwelling Catheter Indwelling Catheter - Labs CBC & Chem 7: 11/09/16 04:31 11/09/16 04:31 Labs: Abnormal Lab Results - Last 24 Hours (Table) 11/08/16 11/09/16 11/09/16 Range/Units 18:06 04:31 04:31 WBC 11.5 H (3.8-10.6) k/uL RBC 3.62 L (4.30-5.90) m/uL Hgb 11.6 L (13.0-17.5) gm/dL Hct 36.1 L (39.0-53.0) % ABG pH (7.35-7.45) ABG pCO2 (35-45) mmHg ABG HCO3 (21-25) mmol/L ABG Total CO2 (19-24) mmol/L Sodium 148 H (137-145) mmol/L Chloride 110 H (98-107) mmol/L BUN 28 H (9-20) mg/dL Creatinine 0.57 L (0.66-1.25) mg/dL Glucose 101 H (74-99) mg/dL POC Glucose (mg/dL) 101 H (75-99) mg/dL Magnesium 2.5 H (1.6-2.3) mg/dL 11/09/16 Range/Units 11:35 WBC (3.8-10.6) k/uL RBC (4.30-5.90) m/uL Hgb (13.0-17.5) gm/dL Hct (39.0-53.0) % ABG pH 7.34 L (7.35-7.45) ABG pCO2 55 H (35-45) mmHg ABG HCO3 29 H (21-25) mmol/L ABG Total CO2 31 H (19-24) mmol/L Sodium (137-145) mmol/L Chloride (98-107) mmol/L BUN (9-20) mg/dL Creatinine (0.66-1.25) mg/dL Glucose (74-99) mg/dL POC Glucose (mg/dL) (75-99) mg/dL Magnesium (1.6-2.3) mg/dL Assessment and Plan Plan: The patient was seen and examined. I agree with the above assessment and plan. He was extubated yesterday and remains on high flow oxygen today. His chest tube remains on suction. There is no airleak noted. His chest x-ray reveals a small right pneumothorax which appears to be unchanged. We will keep the chest tube to suction today and plan on placing him on waterseal tomorrow.
[2016-11-09] MEDS: PANTOPRAZOLE 40 MG/10 ML VIAL IVP SCH (10:07)
[2016-11-09] MEDS: hydrALAZINE HCL 20 MG/ML 1 ML VIAL IVP PRN (10:08)
[2016-11-09] MEDS ORDERED: METOPROLOL TARTRATE 50 MG TAB PO STA (11:30)
[2016-11-09 11:41] LABS: ABG HCO3 29 mmol/L (21-25); ABG PCO2 55 mmHg (35-45); ABG PH 7.34 (7.35-7.45); ABG PO2 91 mmHg (83-108); ABG TCO2 31 mmol/L (19-24)
[2016-11-09 11:42] LABS: ABG Oxygen Saturation 96.4 % (94-97)
[2016-11-09] MEDS ORDERED: FUROSEMIDE 10 MG/ML 4 ML VIAL IV STA (11:49)
[2016-11-09] MEDS ORDERED: LORazepam 2 MG/ML SYRINGE IV PRN ×2 (11:49→15:59)
[2016-11-09] MEDS ORDERED: IPRATROPIUM 0.5 MG/2.5 ML NEBU INHALATION PRN (12:01)
[2016-11-09] MEDS ORDERED: POTASSIUM CHLORIDE 20 MEQ, LIDOCAINE 2% INJ 20 MG in SODIUM CHLORIDE 0.9% 100 ML IVPB STA (12:01)
[2016-11-09] MEDS: THIAMINE 100 MG TAB PO SCH (12:08)
[2016-11-09] MEDS ORDERED: methylPREDNISolone SOD SUCCI 125 MG/2 ML VIAL IV SCH (12:15)
[2016-11-09] MEDS: MULTIVITAMINS, THERA LIQUID 237 ML BOTTLE PO SCH (12:20)
--- NOTE | 2016-11-09 14:39 | P.PN ---
Subjective Principal diagnosis: Pneumothorax Patient seen and examined in the ICU with nursing staff and family at bedside. The patient is in acute respiratory distress. This is discussed with the family at length. The options for BiPAP versus reintubation versus comfort care are discussed with the family. They're wanting to try BiPAP and discussed probable comfort care. The patient's sons are wanting to come in and see him. The patient has been hypertensive overnight. He was given 1 dose of Lasix. His chest x-ray is reviewed and appears essentially unchanged. Objective - Vital Signs Vital signs: Vital Signs Temp 97.9 F 11/09/16 12:00 Pulse 92 11/09/16 14:00 Resp 35 H 11/09/16 14:00 BP 193/73 11/09/16 14:00 Pulse Ox 96 11/09/16 14:00 Intake & Output 11/08/16 11/09/16 11/09/16 18:59 06:59 18:59 Intake Total 4929.918 2192 837.5 Output Total 3011 025 6287 Balance 201.149 445 -962.5 Weight 101.2 kg Intake: IV 1100 1200 800 Sodium Chloride 0.9% 1, 1100 1200 800 000 ml @ 100 mls/hr IV . Q10H [facility] Rx#:[id number] Intake, IV Titration 161.149 37.5 Amount Dexmedetomidine 400 mcg 106.722 In Sodium Chloride 0.9% 100 ml @ Titrate IV .Q0M [facility] Rx#:[id number] Piperacillin-Tazobactam 3 37.5 .375 gm In Dextrose/Water 1 50ml.bag @ 12.5 mls/hr IVPB Q8HR [facility] Rx#: [id number] Propofol 500 mg In Empty 54.427 Bag 1 bag @ Titrate IV . Q0M [facility] Rx#:[id number] Tube Feeding 140 Output: Urine 4168 642 2621 Other: Voiding Method Indwelling Catheter Indwelling Catheter - Exam Gen.: Patient in acute respiratory distress, tachypnea And tachycardic Cardiovascular: Regular rate and rhythm, S1/S2 Lungs: Diminished breath sounds bilaterally with scattered wheezing, right chest tube in place Abdomen: Soft nontender nondistended positive bowel sounds Extremities: No edema - Labs CBC & Chem 7: 11/09/16 04:31 11/09/16 04:31 Labs: Abnormal Lab Results - Last 24 Hours (Table) 11/08/16 11/09/16 11/09/16 Range/Units 18:06 04:31 04:31 WBC 11.5 H (3.8-10.6) k/uL RBC 3.62 L (4.30-5.90) m/uL Hgb 11.6 L (13.0-17.5) gm/dL Hct 36.1 L (39.0-53.0) % ABG pH (7.35-7.45) ABG pCO2 (35-45) mmHg ABG HCO3 (21-25) mmol/L ABG Total CO2 (19-24) mmol/L Sodium 148 H (137-145) mmol/L Chloride 110 H (98-107) mmol/L BUN 28 H (9-20) mg/dL Creatinine 0.57 L (0.66-1.25) mg/dL Glucose 101 H (74-99) mg/dL POC Glucose (mg/dL) 101 H (75-99) mg/dL Magnesium 2.5 H (1.6-2.3) mg/dL 11/09/16 Range/Units 11:35 WBC (3.8-10.6) k/uL RBC (4.30-5.90) m/uL Hgb (13.0-17.5) gm/dL Hct (39.0-53.0) % ABG pH 7.34 L (7.35-7.45) ABG pCO2 55 H (35-45) mmHg ABG HCO3 29 H (21-25) mmol/L ABG Total CO2 31 H (19-24) mmol/L Sodium (137-145) mmol/L Chloride (98-107) mmol/L BUN (9-20) mg/dL Creatinine (0.66-1.25) mg/dL Glucose (74-99) mg/dL POC Glucose (mg/dL) (75-99) mg/dL Magnesium (1.6-2.3) mg/dL Assessment and Plan Plan: Acute on chronic hypoxic and hypercapnic respiratory failure, s/p mechanical ventilation Right spontaneous pneumothorax, CT in place Bullous emphysema History of tobacco abuse Alcohol abuse Hematuria Acute exacerbation of COPD Extubated successfully this morning, patient is doing well on 4L NC. O2 to maintain sat > or = 88% Serial chest x-rays Chest tubes per thoracic surgery Antibiotics: Levaquin, Zosyn Sputum, blood, urine cultures Bronchodilators and Pulmicort GI and DVT prophylaxis Continue tube feeding, consult dietitian Tylenol PRN fever. Patient's prognosis is discussed with the family. Options for further treatment are also discussed. BiPAP versus reintubation versus comfort care are discussed. The patient would like to try BiPAP and discuss possible comfort care. They are aware that if the patient does not tolerate BiPAP or improve on BiPAP that a decision will need to be made very soon. The patient's is notifying her sons. Nursing staff is at bedside and is aware of the plan.
--- NOTE | 2016-11-09 14:58 | P.PN ---
Subjective This is a 60-year-old male one of my patient with a previous medical history significant for extensive COPD with bullous emphysema, hyperlipidemia, hypertension. He was recently admitted from our facility and discharged on secondary to left spontaneous pneumothorax. He presented initially on 04/27/2016 with increasing shortness of breath and was found to have a left- sided pneumothorax requiring ThoraVent by cardiothoracic surgeon, and the patient was subsequently admitted to the selective care unit. . CAT scan of the chest performed at that time shows extensive COPD with bullae formation as well as upper lung fibrosis. Also was treated with COPD exacerbation requiring oral prednisone and inhalers. He was finally discharged with residual pneumothorax of 15% on chest x-ray, subsequently the patient was discharged home and then came back with significant pneumothorax with subcutaneous emphysema that time 40-50% collapse with subcutaneous emphysema. No mediastinal shift. Chest tube was placed at the emergency room by the emergency room physician and was transferred to selective care with consults to cardiothoracic surgeon, eventually patient was discharged home on THORAVENT after his chest tube was removed and he was supposed to come back to the emergency department for evaluation for possible removal of ThORAVENT, Patient underwent a bedside left-sided talc pleurodesis with Dr. Mejia, and eventually was sent home and follow up with me as an outpatient, patient has been doing fine and he has been following with thoracic surgery as an outpatient until he was cleared the patient up or he came to the emergency department at [facility] yesterday with increased shortness breath he was found to have a significant right-sided pneumothorax about 50% and had a long conversation with the ER physician and contacted Dr. Mejia at that time and the plan was to transfer the patient to the emergency department at [facility] for evaluation by thoracic surgery as there was no thrush surgery on site at [facility], patient was transferred on a BiPAP by the time he got there he became quite hypoxemic he ended up intubating the patient to the ER he had right-sided chest tube that was placed by Dr. Galaviz and subsequently he was admitted to the intensive care unit, and pulmonary consultation was obtained from Dr. Dueñas. 11/02: Patient continues to be intubated on mechanical ventilation. Chest tube remains in place for right spontaneous pneumothorax. He is followed by cardiothoracic surgeon as well as Dr. Dueñas from pulmonary medicine. Patient is also followed by cardiology and noted to have borderline troponins likely due to hypoxia and troponin leak. Echocardiogram has been ordered and report is pending. Tube feedings have been started. Urine output has been 30-35 mL per hour. No diarrhea. 11/03: Patient is laying down in bed he can dyspnea on the ventilator he is currently on the CMV mode with FiO2 of 50%, tidal volume of 500 and PEEP of 5 he is currently sedated, he has 2 chest tubes and top of each other on the right side. I spoke with his at the bedside and all her questions were answered. 11/04: Patient remains sedated, intubated and on on mechanical ventilation. Patient had episode of restlessness with increased heart rate and tube feeding didn't come loose and there was concern for aspiration for which we have added and Zosyn. Patient's told his nurse that he has been drinking 5-6 24 ounce beers per day when it was thought that the patient had cut back or stopped drinking. Subcutaneous emphysema is improved today. He has had good urine output. He has extreme scrotal edema. 11/07: He remains intubated and on mechanical ventilation. Patient is unable to tolerate sedation holiday. He remains with chest tube and Pelaez catheter in place. Urine output has been adequate. He has significant scrotal edema continues for which she has been seen by Dr. Lockwood with no specific treatment necessary and aspiration of air in the scrotum could be performed. Albumin and Lasix have been ordered. Repeat chest x-ray shows small residual right-sided pneumothorax. Left basilar airspace disease. Small left-sided effusion. 11/08: Patient has been successfully extubated and is on oxygen at 4 L nasal cannula.. Repeat chest x-ray shows slight improvement. He has been afebrile. PT and OT are following. Social work is following for discharge planning. 11/09: Patient has significant dyspnea this morning. Lasix with potassium added as well as Solu-Medrol 60 mg every 6 and Ativan 0.5 mg every 6. Heart rate has been elevated and DuoNeb treatments switched over to Xopenex and Atrovent. Pulmicort increased to 1 mg twice daily. Discussed in detail with the patient and his at the bedside his CODE STATUS and patient is agreeable to continue full CODE STATUS. Objective - Vital Signs Vital signs: Vital Signs Temp 99.5 F 11/09/16 08:00 Pulse 110 H 11/09/16 11:26 Resp 36 H 11/09/16 10:00 BP 174/68 11/09/16 10:00 Pulse Ox 95 11/09/16 10:00 Intake & Output 11/08/16 11/09/16 11/09/16 18:59 06:59 18:59 Intake Total 9617.236 5004 Output Total 1200 755 Balance 201.149 445 Weight 101.2 kg Intake: IV 1100 1200 Sodium Chloride 0.9% 1, 1100 1200 000 ml @ 100 mls/hr IV . Q10H ROSELIA Rx#:[id number] Intake, IV Titration 161.149 Amount Dexmedetomidine 400 mcg 106.722 In Sodium Chloride 0.9% 100 ml @ Titrate IV .Q0M ROSELIA Rx#:[id number] Propofol 500 mg In Empty 54.427 Bag 1 bag @ Titrate IV . Q0M ROSELIA Rx#:[id number] Tube Feeding 140 Output: Urine 1200 755 Other: Voiding Method Indwelling Catheter Indwelling Catheter - Exam General appearance: no distress (Patient is currently intubated on the ventilator with sedation on board.) - EENT Eyes: EOMI, PERRLA, poor dentition ENT: other (ET tube in place and oral gastric tube in place.) Ears: bilateral: normal - Neck Neck: no rigidity, no stridor, no thyromegaly Carotids: bilateral: upstroke delayed - Respiratory Respiratory: bilateral: diminished, dullness, rales, rhonchi, wheezing, prolonged expiration (There is a right sided chest tube and minimal right subcutaneous emphysema) - Cardiovascular Rhythm: regular Heart sounds: normal: S1, S2 Abnormal Heart Sounds: systolic murmur, no rub, no S3 Gallop, no S4 Gallop, no click - Gastrointestinal General gastrointestinal: normal bowel sounds, soft, no splenomegaly, no tenderness, no umbilical hernia, no ventral hernia - Integumentary Integumentary: normal, normal turgor - Psychiatric Psychiatric: A&O x's 3, no appropriate affect, intact judgment & insight ( Patient is currently intubated and sedated on the ventilator.) - Labs CBC & Chem 7: 11/09/16 04:31 11/09/16 04:31 Labs: Abnormal Lab Results - Last 24 Hours (Table) 11/08/16 11/09/16 11/09/16 Range/Units 18:06 04:31 04:31 WBC 11.5 H (3.8-10.6) k/uL RBC 3.62 L (4.30-5.90) m/uL Hgb 11.6 L (13.0-17.5) gm/dL Hct 36.1 L (39.0-53.0) % ABG pH (7.35-7.45) ABG pCO2 (35-45) mmHg ABG HCO3 (21-25) mmol/L ABG Total CO2 (19-24) mmol/L Sodium 148 H (137-145) mmol/L Chloride 110 H (98-107) mmol/L BUN 28 H (9-20) mg/dL Creatinine 0.57 L (0.66-1.25) mg/dL Glucose 101 H (74-99) mg/dL POC Glucose (mg/dL) 101 H (75-99) mg/dL Magnesium 2.5 H (1.6-2.3) mg/dL 11/09/16 Range/Units 11:35 WBC (3.8-10.6) k/uL RBC (4.30-5.90) m/uL Hgb (13.0-17.5) gm/dL Hct (39.0-53.0) % ABG pH 7.34 L (7.35-7.45) ABG pCO2 55 H (35-45) mmHg ABG HCO3 29 H (21-25) mmol/L ABG Total CO2 31 H (19-24) mmol/L Sodium (137-145) mmol/L Chloride (98-107) mmol/L BUN (9-20) mg/dL Creatinine (0.66-1.25) mg/dL Glucose (74-99) mg/dL POC Glucose (mg/dL) (75-99) mg/dL Magnesium (1.6-2.3) mg/dL Assessment and Plan Plan: 1. Right sided spontaneous pneumothorax with acute on chronic hypoxic respiratory failure requiring intubation and mechanical ventilation status post extubation. Post chest tube placement in the ER and subsequently by cardiothoracic surgeon, continue DuoNeb treatments, Pulmicort twice every day, pulmonary consultation, thoracic surgery consultation monitor the patient very closely. Lasix 40 mg twice daily, Atrovent and Xopenex 4 times daily and as needed, Solu-Medrol 60 mg IV every 6 hours, continue Zosyn and Levaquin 2. COPD exacerbation with chronic hypoxic respiratory failure and home O2 dependence. We will continue with nebulized treatment, oxygen support, monitor the blood gases. 3. Leukocytosis. Likely reactive monitor CBC the next 24 hours. 4. Degenerative disc disease. Stable at this time. 5. Severe emphysema with bulla . With recurrent pneumothorax. 6. Tobacco use and dependence. I believe the patient had quit smoking. 7. History of alcohol abuse. I believe the patient had cut back. 8. DVT prophylaxis. Heparin 5000 units subcutaneously every 12 hours. 9. GI prophylaxis. Start the patient on Protonix 40 mg orally once every day. 10. Delirium tremens and toxic encephalopathy due to alcohol abuse. Continue Ativan/CIWA protocol. 11. Patient is a full code. Discharge plan: Most likely subacute rehab Impression and plan of care have been directed as dictated by the signing physician. Dianelys Aden nurse practitioner acting as scribe for signing physician.
[2016-11-09] MEDS ORDERED: SCOPOLAMINE 1.5MG/72HR PATCH TRANSDERM PRN (15:59)
[2016-11-09] MEDS ORDERED: ARTIFICIAL TEARS-HYPROMELLOSE DROPS 15 ML BTL BOTH EYES PRN (15:59)
[2016-11-09] MEDS ORDERED: ONDANSETRON 4 MG/2 ML VIAL IVP PRN (15:59)
[2016-11-09] MEDS ORDERED: MORPHINE SULFATE 2 MG/ML SYRINGE IV PRN (15:59)
[2016-11-09] MEDS ORDERED: DRY MOUTH SPRAY 44.3 SPRAY/44.3 ML SPRAY MUCOUS MEM PRN (15:59)
[2016-11-09] MEDS ORDERED: LEVALBUTEROL NEB (CONC) 1.25 MG/0.5 ML AMP INHALATION SCH (16:00)
[2016-11-09] MEDS ORDERED: FUROSEMIDE 10 MG/ML 4 ML VIAL IV SCH (16:00)
[2016-11-09] MEDS ORDERED: IPRATROPIUM 0.5 MG/2.5 ML NEBU INHALATION SCH (16:00)
[2016-11-09] MEDS ORDERED: SODIUM CHLORIDE 0.9% 1,000 ML IV SCH (16:00)
[2016-11-09] MEDS ORDERED: POTASSIUM CHLORIDE 20 MEQ, LIDOCAINE 2% INJ 20 MG in SODIUM CHLORIDE 0.9% 100 ML IVPB SCH (16:00)
[2016-11-09] MEDS: MORPHINE SULFATE (100 MG/2 ML) 100 MG in SODIUM CHLORIDE 0.9% 100 ML IV SCH (16:24)
[2016-11-09] MEDS ORDERED: BUDESONIDE 1 MG/2 ML NEBU INHALATION SCH (20:00)
[2016-11-09 22:50] VITALS: BP 149/62; PULSE 102; RESP 13; TEMP 97.8
[2016-11-10] MEDS: SODIUM CHLORIDE 0.9% 1,000 ML IV SCH (00:03)
[2016-11-10] MEDS: MORPHINE SULFATE (100 MG/2 ML) 100 MG in SODIUM CHLORIDE 0.9% 100 ML IV SCH (03:03)
--- NOTE | 2016-11-11 15:53 | P.DS ---
Providers Date of admission: 11/01/16 02:31 Expected date of discharge: 11/10/16 Attending physician: Francisco Bal Consults: 11/01/16 02:29 Consult Physician Urgent Consulting Provider: Josh Mejia Consult Reason/Comments: Pneumothorax Do you want consulting provider notified?: Already Contacted 11/01/16 09:22 Consult Physician Routine Consulting Provider: Fatuma Dueñas Consult Reason/Comments: ICU management Do you want consulting provider notified?: Yes 11/01/16 17:16 Consult Physician Routine Consulting Provider: Jevon Stafford Consult Reason/Comments: Elevated troponin, ST depression, T wave invesion. Do you want consulting provider notified?: Yes 11/04/16 14:01 Consult Physician Urgent Consulting Provider: Sam Lazcano Consult Reason/Comments: significant scrotal edema Do you want consulting provider notified?: Yes Primary care physician: Francisco Bal [facility] Course: This is a 60-year-old male one of my patient with a previous medical history significant for extensive COPD with bullous emphysema, hyperlipidemia, hypertension. He was recently admitted from our facility and discharged on secondary to left spontaneous pneumothorax. He presented initially on 04/27/2016 with increasing shortness of breath and was found to have a left- sided pneumothorax requiring ThoraVent by cardiothoracic surgeon, and the patient was subsequently admitted to the selective care unit. . CAT scan of the chest performed at that time shows extensive COPD with bullae formation as well as upper lung fibrosis. Also was treated with COPD exacerbation requiring oral prednisone and inhalers. He was finally discharged with residual pneumothorax of 15% on chest x-ray, subsequently the patient was discharged home and then came back with significant pneumothorax with subcutaneous emphysema that time 40-50% collapse with subcutaneous emphysema. No mediastinal shift. Chest tube was placed at the emergency room by the emergency room physician and was transferred to selective care with consults to cardiothoracic surgeon, eventually patient was discharged home on THORAVENT after his chest tube was removed and he was supposed to come back to the emergency department for evaluation for possible removal of ThORAVENT, Patient underwent a bedside left-sided talc pleurodesis with Dr. Mejia, and eventually was sent home and follow up with me as an outpatient, patient has been doing fine and he has been following with thoracic surgery as an outpatient until he was cleared the patient up or he came to the emergency department at [facility] yesterday with increased shortness breath he was found to have a significant right-sided pneumothorax about 50% and had a long conversation with the ER physician and contacted Dr. Mejia at that time and the plan was to transfer the patient to the emergency department at [facility] for evaluation by thoracic surgery as there was no thrush surgery on site at [facility], patient was transferred on a BiPAP by the time he got there he became quite hypoxemic he ended up intubating the patient to the ER he had right-sided chest tube that was placed by Dr. Galaviz and subsequently he was admitted to the intensive care unit, and pulmonary consultation was obtained from Dr. Dueñas. 11/02: Patient continues to be intubated on mechanical ventilation. Chest tube remains in place for right spontaneous pneumothorax. He is followed by cardiothoracic surgeon as well as Dr. Dueñas from pulmonary medicine. Patient is also followed by cardiology and noted to have borderline troponins likely due to hypoxia and troponin leak. Echocardiogram has been ordered and report is pending. Tube feedings have been started. Urine output has been 30-35 mL per hour. No diarrhea. 11/03: Patient is laying down in bed he can dyspnea on the ventilator he is currently on the CMV mode with FiO2 of 50%, tidal volume of 500 and PEEP of 5 he is currently sedated, he has 2 chest tubes and top of each other on the right side. I spoke with his at the bedside and all her questions were answered. 11/04: Patient remains sedated, intubated and on on mechanical ventilation. Patient had episode of restlessness with increased heart rate and tube feeding didn't come loose and there was concern for aspiration for which we have added and Zosyn. Patient's told his nurse that he has been drinking 5-6 24 ounce beers per day when it was thought that the patient had cut back or stopped drinking. Subcutaneous emphysema is improved today. He has had good urine output. He has extreme scrotal edema. 11/07: He remains intubated and on mechanical ventilation. Patient is unable to tolerate sedation holiday. He remains with chest tube and Pelaez catheter in place. Urine output has been adequate. He has significant scrotal edema continues for which she has been seen by Dr. Lockwood with no specific treatment necessary and aspiration of air in the scrotum could be performed. Albumin and Lasix have been ordered. Repeat chest x-ray shows small residual right-sided pneumothorax. Left basilar airspace disease. Small left-sided effusion. 11/08: Patient has been successfully extubated and is on oxygen at 4 L nasal cannula.. Repeat chest x-ray shows slight improvement. He has been afebrile. PT and OT are following. Social work is following for discharge planning. 11/09: Patient has significant dyspnea this morning. Lasix with potassium added as well as Solu-Medrol 60 mg every 6 and Ativan 0.5 mg every 6. Heart rate has been elevated and DuoNeb treatments switched over to Xopenex and Atrovent. Pulmicort increased to 1 mg twice daily. Discussed in detail with the patient and his at the bedside his CODE STATUS and patient is agreeable to continue full CODE STATUS. 11/10: Patient developed increased respiratory distress and elevated blood pressure patient was eventually placed on BiPAP and family eventually decided to make him comfort measures instead of intubation. Morphine drip was started. Patient on the morning of November 10. Please see nursing recommendation for details. Discharge diagnoses: 1. Right sided spontaneous pneumothorax with acute on chronic hypoxic respiratory failure 2. COPD exacerbation with chronic hypoxic respiratory failure and home O2 dependence. 3. Leukocytosis. 4. Degenerative disc disease. 5. Severe emphysema with bulla . With recurrent pneumothorax. 6. Tobacco use and dependence. 7. History of alcohol abuse. 8. Delirium tremens and toxic encephalopathy due to alcohol abuse. Impression and plan of care have been directed as dictated by the signing physician. Dianelys Aden nurse practitioner acting as scribe for signing physician. Patient Condition at Discharge: Undetermined Plan - Discharge Summary Discharge Medication List Albuterol Nebulized [Ventolin Nebulized] 2.5 mg INHALATION RT-QID 04/27/16 [ History] Budesonide/Formoterol Fumarate [Symbicort 160-4.5 Mcg Inhaler] 2 puff INHALATION RT-BID 04/27/16 [History] Acetaminophen Tab [Tylenol] 650 mg PO Q4HR PRN #0 tab 05/01/16 [Rx] Multivitamins, Thera [Multivitamin (formulary)] 1 tab PO DAILY 05/04/16 [History ] Tiotropium [place] [Spiriva Respimat] 1 puff INHALATION RT-DAILY 05/04/16 [ History] ALPRAZolam [Xanax] 0.25 mg PO BID PRN #60 tab 06/08/16 [Rx] Baclofen [Lioresal] 10 mg PO BID PRN 11/01/16 [History] HYDROcodone/APAP 5-325MG [[place] 5-325] 1 tab PO Q8H PRN 11/01/16 [History] Ipratropium [place] [Atrovent Hfa] 2 puff INHALATION RT-QID 11/01/16 [History] Sennosides-Docusate Sodium [Senokot-S] 1 tab PO BID PRN 11/01/16 [History] Follow up Appointment(s)/Referral(s): Francisco Bal MD [Primary Care Provider] - 1-2 days Discharge Disposition: - Preliminary Cause of Preliminary Cause of : Rt sided spontaneous pneumothorax w acute on chronic hypoxic respiratory f
--- NOTE | 2016-11-15 10:03 | CDI ---
In responding to this query, please exercise your independent professional judgment. The [facility] Coding Staff and Clinical Documentation Specialists appreciate your assistance in clarifying documentation, maintaining compliance with coding guidelines, accurately documenting patients condition and capturing severity of illness. The fact that a question is asked does not imply that any particular answer is desired or expected. Communication forms are a method of clarifying documentation and are not made part of the Legal Health Record. Thank you in advance for your clarification. Last Revision, April 2015 Tiffany Bustamante [address] [place] [address] Documentation Clarification Form Mortality Review Date: 11/15/2016 9:26:00 AM From: Sabra Frederick RN, CCDS Admit Date: 11/01/2016 2:31:00 AM Patient Name: Alec Jefferson Visit Number: [id number] Dr. Francisco Bal/Dianelys Aden CNP History/Risk Factors: Sedated on MV, recurring pneumothorax Clinical Indicators: D/C Summary: "11/04: Patient remains sedated, intubated and on mechanical ventilation. Patient had episode of restlessness with increased heart rate and tube feeding didn't come loose and there was concern for aspiration for which we have added and Zosyn. Patient's told his nurse that he has been drinking 5-6 24 ounce beers per day." WBC:7.7/7.5/11.5 CXR:"Diffuse emphysematous changes seen with right-sided chest tube. Stable right-sided pneumothorax. Subcutaneous emphysema noted. Subsegmental changes and tiny effusion at both lung bases. Correlate for pulmonary arterial hypertension. Large bulla left upper lobe. " 11/09 Lung/Breathing assessment: "Lungs: Diminished breath sounds bilaterally with scattered wheezing, right chest tube in place." Treatment: Antibiotics: Levaquin 500mg ivpb Q 24 hrs, Zosyn 3.375 gm IVPB Q 8 hrs O2: Pt was sedated and on mechanical ventilator, pt extubated 11/08, placed on BiPAP on 11/10 and made comfort measures Breathing TX: Duoneb QID and Q 2 hrs PRN, Pulmicort 1mg INH BID In order to capture the severity of condition, please clarify if the condition signifies and you are treating for: Aspiration Pneumonia, identify if: Due to solids or liquids Bacterial Pneumonia, specify causal organism (if known) Gram Negative Pneumonia Due to Strep Due to Staph Due to E. coli Other bacteria (specify) Viral Pneumonia, specify casual organism (if known) Ventilator Associated Pneumonia Unable to determine Link any associated conditions to the pneumonia: Influenza with secondary gram negative pneumonia Sepsis due to pneumonia Acute respiratory failure due to pneumonia Other, please specify Please document in your progress notes and discharge summary in order to capture severity of illness and risk of mortality. Include clinical findings that support your diagnosis. FYI: Press F11 to launch patient chart. Place X here if this finding has no clinical significance, is not applicable or if you are not able to provide any additional documentation. FRED
== END 2016-11-10 04:00 | disposition expired | DRG 207 ==
LOC: EC 00:14 → 6ICU 02:31
PROVIDERS: ADMIT Internal Medicine; ATTEND Internal Medicine
PROC: 0BH18EZ Insertion of Endotracheal Airway into Trachea, Via Natural or Artificial Opening Endoscopic (ICD-10-PCS; 2016-11-01)
PROC: 5A1955Z Respiratory Ventilation, Greater than 96 Consecutive Hours (ICD-10-PCS; 2016-11-01)
PROC: 0W9930Z Drainage of Right Pleural Cavity with Drainage Device, Percutaneous Approach (ICD-10-PCS; 2016-11-01)
PROC: 0W9930Z Drainage of Right Pleural Cavity with Drainage Device, Percutaneous Approach (ICD-10-PCS; principal; 2016-11-02)
DX: J93.83 Other pneumothorax (principal); J69.0 Pneumonitis due to inhalation of food and vomit; G92 Toxic encephalopathy; J96.21 Acute and chronic respiratory failure with hypoxia; F10.231 Alcohol dependence with withdrawal delirium; J96.22 Acute and chronic respiratory failure with hypercapnia; J44.1 Chronic obstructive pulmonary disease with (acute) exacerbation; T79.7XXA Traumatic subcutaneous emphysema, initial encounter; D72.829 Elevated white blood cell count, unspecified; E78.5 Hyperlipidemia, unspecified; I10 Essential (primary) hypertension; J84.10 Pulmonary fibrosis, unspecified; R31.9 Hematuria, unspecified; Z51.5 Encounter for palliative care; Z72.0 Tobacco use; Z80.3 Family history of malignant neoplasm of breast; Z99.81 Dependence on supplemental oxygen
CPT/HCPCS: 31500; 32551; 36600; 43753; 51702; 71010; 71250; 80048; 80053; 81001; 82805; 83735; 84100; 84484; 85025; 85027; 85610; 85730; 87070; 87086; 87205; 93005; 93306; 94002; 94003; 94640; 94660; 96374; 99152; 99291